=== PATIENT | male | born 1965 | race Caucasian/White ===

== ENCOUNTER 2022-11-08 | Outpatient (REF) | payer MEDICARE, MEDICAID, SELFPAY ==
[2022-11-13 10:08] LABS: Alphahydroxymidazolam,GCMS Ur NEGATIVE; Alphahydroxytriazolam, GCMS Ur NEGATIVE; Alprazolam, GCMS Urine NEGATIVE; Flurazepam Metabolite,GCMS Ur NEGATIVE; Lorazepam GCMS Urine NEGATIVE; Nordiazepam, GCMS Urine NEGATIVE; Oxazepam, GCMS Urine NEGATIVE; Temazepam, GCMS Urine NEGATIVE
== END 2022-11-08 00:01 | disposition home or self-care (01) ==
LOC: HO.LNP
PROVIDERS: Visit Provider Internal Medicine Geriatric Medicine
DX: G89.4 Chronic pain syndrome (principal); G89.29 Other chronic pain; M54.50 Low back pain, unspecified; Z79.891 Long term (current) use of opiate analgesic
CPT/HCPCS: 80346

== ENCOUNTER 2023-04-18 11:16 | Outpatient (REF) | payer MEDICARE, MEDICAID, SELFPAY ==
[2023-04-18 13:25] LABS: MANUAL DIFF FLAG NO
[2023-04-18 13:37] LABS: Basophils Absolute Auto 0.1 X10*3/uL (0.0-0.2); Basophils Percent Auto 0.7 % (0-2); Eosinophils Absolute Auto 0.2 X10*3/uL (0.0-0.4); Eosinophils Percent Auto 2.1 % (0-4); Hematocrit 39.4 % (42.0-52.0); Hemoglobin 12.5 g/dl (14.0-18.0); Imm Gran Abs Auto 0.11 X10*3/uL (0.00-0.03); Lymphocytes Absolute Auto 2.8 X10*3/uL (1.2-4.9); Lymphocytes Percent Auto 25.9 % (20-40); Mean Corpuscular HGB Conc 31.7 g/dl (31.0-36.0); Mean Corpuscular Hemoglobin 30.5 pg (27.0-33.0); Mean Corpuscular Volume 96.1 fL (80.0-98.0); Mean Platelet Volume 10.4 fL (9.4-12.4); Monocytes Absolute Auto 0.9 X10*3/uL (0.1-1.2); Monocytes Percent Auto 8.2 % (2-11); Neutrophils Absolute Auto 6.6 x10*3/uL (2.0-8.3); Neutrophils Percent Auto 62.1 % (45-73); Platelet Count 271 X10*3/uL (160-400); Red Cell Distribution Width 15.2 % (11.0-16.0); White Blood Count 10.6 X10*3/uL (4.8-10.8)
[2023-04-18 14:01] LABS: Anion Gap 11 (12-20); Blood Urea Nitrogen 16 mg/dL (9-16); Carbon Dioxide 25 mmol/L (22-29); Chloride 112 mmol/L (96-108); Estimated Glomerular Filt Rate > 60; Glucose Random 91 mg/dL (60-115); Potassium 4.3 mmol/L (3.3-5.1); Sodium 144 mmol/L (135-145)
== END 2023-04-18 11:17 | disposition home or self-care (01) ==
LOC: HO.HHCL 11:16
PROVIDERS: Visit Provider Internal Medicine Geriatric Medicine
DX: R82.90 Unspecified abnormal findings in urine (principal); N31.9 Neuromuscular dysfunction of bladder, unspecified
CPT/HCPCS: 36415; 80048; 85025

== ENCOUNTER 2023-08-01 11:48 | Outpatient (AMB) | payer MEDICARE, MEDICAID, SELFPAY ==
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
[2023-08-01 11:53] VITALS: BP 123/76; PULSE 80; BMI 19.9
== END 2023-08-01 12:57 | disposition home or self-care (01) ==
PROVIDERS: PCP Internal Medicine Geriatric Medicine; Referring Provider Internal Medicine Geriatric Medicine; Visit Provider Internal Medicine
DX: K62.5 Hemorrhage of anus and rectum (principal); Z87.828 Personal history of other (healed) physical injury and trauma
CPT/HCPCS: 99204

== ENCOUNTER 2023-08-01 11:48 | Outpatient (REF) | payer MEDICARE, MEDICAID, SELFPAY ==
[2023-08-01 12:51] LABS: MANUAL DIFF FLAG NO
[2023-08-01 13:03] LABS: Basophils Absolute Auto 0.1 X10*3/uL (0.0-0.2); Basophils Percent Auto 0.5 % (0-2); Eosinophils Absolute Auto 0.2 X10*3/uL (0.0-0.4); Eosinophils Percent Auto 2.2 % (0-4); Hematocrit 39.5 % (42.0-52.0); Hemoglobin 13.4 g/dl (14.0-18.0); Imm Gran Abs Auto 0.05 X10*3/uL (0.00-0.03); Imm Gran Pct Auto 0.5 % (0.0-0.4); Lymphocytes Absolute Auto 2.8 X10*3/uL (1.2-4.9); Lymphocytes Percent Auto 30.4 % (20-40); Mean Corpuscular HGB Conc 33.9 g/dl (31.0-36.0); Mean Corpuscular Hemoglobin 31.1 pg (27.0-33.0); Mean Corpuscular Volume 91.6 fL (80.0-98.0); Mean Platelet Volume 10.3 fL (9.4-12.4); Monocytes Absolute Auto 0.8 X10*3/uL (0.1-1.2); Neutrophils Absolute Auto 5.3 x10*3/uL (2.0-8.3); Neutrophils Percent Auto 57.4 % (45-73); Platelet Count 247 X10*3/uL (160-400); Red Blood Count 4.31 X10*6/uL (4.60-5.80); Red Cell Distribution Width 13.7 % (11.0-16.0); White Blood Count 9.3 X10*3/uL (4.8-10.8)
[2023-08-01 13:49] LABS: Anion Gap 9 (12-20); Blood Urea Nitrogen 13 mg/dL (9-16); Calcium 8.8 mg/dL (8.4-10.2); Carbon Dioxide 24 mmol/L (22-29); Chloride 111 mmol/L (96-108); Estimated Glomerular Filt Rate > 60; Glucose Random 91 mg/dL (60-115); Potassium 4.2 mmol/L (3.3-5.1); Sodium 140 mmol/L (135-145)
== END 2023-08-01 11:49 | disposition home or self-care (01) ==
LOC: HO.LAB 11:48
PROVIDERS: Absent Provider Internal Medicine Geriatric Medicine; PCP Internal Medicine Geriatric Medicine; Visit Provider Internal Medicine
DX: K62.5 Hemorrhage of anus and rectum (principal); Z87.828 Personal history of other (healed) physical injury and trauma; R82.90 Unspecified abnormal findings in urine; N31.9 Neuromuscular dysfunction of bladder, unspecified
CPT/HCPCS: 36415; 80048; 85025; 85027; 99202

== ENCOUNTER 2023-08-31 15:26 | Outpatient (REF) | payer MEDICARE, MEDICAID, SELFPAY ==
[2023-09-02 20:13] LABS: TS Negative Control Passed; TS Panel A 0; TS Panel B 0; TS Positive Control Passed; TSpotTB Negative (Negative)
== END 2023-08-31 15:27 | disposition home or self-care (01) ==
LOC: HO.HHCL 15:26
PROVIDERS: Visit Provider Internal Medicine Geriatric Medicine
DX: Z11.1 Encounter for screening for respiratory tuberculosis (principal)
CPT/HCPCS: 36415; 86481

== ENCOUNTER 2023-10-29 15:58 | Outpatient (REF) | payer MEDICARE, MEDICAID, SELFPAY ==
[2023-11-02 08:45] LABS: Alphahydroxymidazolam,GCMS Ur NEGATIVE; Alphahydroxytriazolam, GCMS Ur NEGATIVE; Alprazolam, GCMS Urine NEGATIVE; Aminoclonazepam, GCMS Urine 333; Flurazepam Metabolite,GCMS Ur NEGATIVE; Lorazepam GCMS Urine NEGATIVE; Nordiazepam, GCMS Urine NEGATIVE; Oxazepam, GCMS Urine NEGATIVE; Temazepam, GCMS Urine NEGATIVE
== END 2023-10-29 15:59 | disposition home or self-care (01) ==
LOC: HO.LNP 15:58
PROVIDERS: Visit Provider Internal Medicine Geriatric Medicine
DX: M54.50 Low back pain, unspecified (principal); G89.29 Other chronic pain
CPT/HCPCS: 80346

== ENCOUNTER 2024-01-24 08:57 | Day surgery (SDC) | payer MEDICARE, MEDICAID, SELFPAY ==
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
--- OUTSIDE RECORDS SUMMARY | 2024-01-24 08:59 | XMS_ITS | Continuity of Care Document ---
Author Organization [facility] Address [address] [place] [address]- Care Team Providers Care Carrot Buncher Name Role Phone Name Harry NIELSEN Primary Care Physician [phone] [id number] Date(s): 01/09/23 - 02/08/[facility] [address] [place] [address]- Allergies, Adverse Reactions, Alerts Substance Reaction Severity Status Depakote ? reaction Active Immunizations Given and Recorded Vaccine Date Status Refusal Reason diphtheria-tetanus toxoids (DT) 1 07/26/06 Given Hepatitis B Vaccine (old term) 2 07/26/06 Given 1Admin Note: VIS 11/05/00 2Admin Note: VIS 10/17/00 Medications amitriptyline 50 mg oral tablet TAKE 1 TABLET BY MOUTH AT BEDTIME Start Date: 07/18/22 Status: Ordered ARIPiprazole 10 mg oral tablet 10 mg, 1, tablet, By Mouth, Daily, Maintenance, 07/18/22 7:59:00 EDT Start Date: 07/18/22 Status: Ordered buPROPion 300 mg/24 hours (XL) oral tablet, extended release TAKE 1 TABLET BY MOUTH EVERY MORNING. DO NOT BREAK, CRUSH, DISSOLVE OR CHEW Start Date: 07/18/22 Status: Ordered clonazePAM 1 mg oral tablet 1 tablet = 1 mg, By Mouth, Daily, Maintenance, 07/18/22 7:58:00 EDT, Tablet, Partial fill upon patient request if the prescription is for a schedule II opioid drug. Start Date: 07/18/22 Status: Ordered Percocet 7.5/325 1 tablet, By Mouth, Every 6 hours, 0 Refills, Maintenance, 08/08/18 14:34:39 EDT Start Date: 08/08/18 Status: Ordered prazosin 2 mg oral capsule 3 capsules, By Mouth, Daily at bedtime, Maintenance, 07/18/22 8:00:00 EDT, Capsule Start Date: 07/18/22 Status: Ordered sertraline 100 mg oral tablet 1 tablet = 100 mg, By Mouth, Daily, Maintenance, 07/18/22 7:59:00 EDT, Tablet Start Date: 07/18/22 Status: Ordered tiZANidine 4 mg oral tablet 4 mg, 1, tablet, By Mouth, Daily, PRN, Maintenance, Spasm, 07/18/22 7:59:00 EDT, Partial fill upon patient request if the prescription is for a schedule II opioid drug. 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 Confirmed Active LBP (low back pain) Confirmed Active Neurogenic bladder Confirmed Active Post-traumatic stress disorder (PTSD) Confirmed Active Urinary incontinence Confirmed Active UTI - Urinary tract infection Confirmed Active Social History Social History Type Response Smoking Status Current every day flako thomas entered on: 05/01/16 Sex Patient Care team information Care Team Personnel Name: Patti Bob RN Position: [facility] AMB Nurse Member Role: Primary Care Nurse Name: Tamar Wyatt RN Position: [facility] SN RN Member Role: Primary Care Nurse Name: Hue Pierre NP Position: Reference Physician Member Role: Primary Care Nurse Address: Address: [address] [place] [address] [address] [place] [address]- Name: Omid Miller RN Position: [facility] RN Member Role: Primary Care Nurse Name: Harry Recio MD Position: [facility] Outreach Member Role: PCP Address: Address: [address] [place] [address]- Name: Glenn Tavares RN Position: [facility] ED RN W/OE and Tasks Member Role: Primary Care Nurse Care Team Related Persons Name: BARBARA ALONZO Address: [address] [address]
--- OUTSIDE RECORDS SUMMARY | 2024-01-24 08:59 | XMS_ITS | Continuity of Care Document ---
Author Organization [facility] ter Address [address] [place] [address]- Care Team Providers Care Certified Addiction Counselor Name Role Phone Name Harry NIELSEN Primary Care Physician [place] [facility] [place]16[place] - 06/20/[address] [address] Attending Physician: Yamila Gan MD Admitting Physician: Yamila Gan MD Referring Physician: Yamila Gan MD Allergies, Adverse Reactions, Alerts Substance Reaction Severity Status Depakote ? reaction Active Immunizations Given and Recorded Vaccine Date Status Refusal Reason diphtheria-tetanus toxoids (DT) 1 07/26/06 Given Hepatitis B Vaccine (old term) 2 07/26/06 Given Not Given Vaccine Date Status Refusal Reason pneumococcal 23-valent vaccine 01/17/13 Not Given Patient Refuses 1Admin Note: VIS 11/05/00 2Admin Note: VIS 10/17/00 Medications duloxetine 30 mg oral enteric coated capsule 1 capsule = 30 mg, By Mouth, 2 times a day, 0 Refills, Maintenance, 09/09/18 15:30:52 EDT Start Date: 09/09/18 Status: Ordered LORazepam 0.5 mg oral tablet 0.5 tablet = 0.25 mg, By Mouth, 3 times a day, 0 Refills, Maintenance, 08/08/18 14:37:17 EDT, Tablet Start Date: 08/08/18 Status: Ordered Percocet 7.5/325 1 tablet, By Mouth, Every 6 hours, 0 Refills, Maintenance, 08/08/18 14:34:39 EDT Start Date: 08/08/18 Status: Ordered Problem List Condition Effective Dates Status Health Status Inform ant Cauda equina(Confirmed) Active Depressive Disorder, Not Els ewhere Classified(Confirmed) Active Fecal incontinence not due t o organic disease(Confirmed) Active LBP (low back pain)(Confirmed) Active Neurogenic bladder(Confirmed) Active Post-traumatic stress disord er (PTSD)(Confirmed) Active Urinary incontinence(Confirmed) Active UTI - Urinary tract infection(Confirmed) Active Social History Social History Type Response Smoking Status Current every day flako thomas entered on: 05/01/16 Sex
--- OUTSIDE RECORDS SUMMARY | 2024-01-24 08:59 | XMS_ITS | Continuity of Care Document ---
Author Organization [facility] Address [address] [place] [address]- Care Team Providers Care Substance Addiction Coordinator Name Role Phone Name Harry NIELSEN Primary Care Physician [place] [facility] [place] 03/03/23 [facility] [address] [place] [address]- Attending Physician: Nirmal Moralez Admitting Physician: Nirmal Moralez Referring Physician: Nirmal Moralez Allergies, Adverse Reactions, Alerts Substance Reaction Severity [...] Type Response Smoking Status Current every day william entered on: 05/01/16 Sex Patient Care team information Care Team Personnel Name: Patti Bob RN Position: [facility] AMB Nurse Member Role: Primary Care Nurse Name: Tamar Wyatt RN Position: [facility] SN RN Member Role: Primary Care Nurse Name: Hue Pierre NP Position: Reference Physician Member Role: Primary Care Nurse Address: Address: [address] [place] [address] [address] [place] [address]- Name: Omid Miller RN Position: [facility] RN Member Role: Primary Care Nurse Name: Harry Recio MD Position: [facility] Outreach Member Role: PCP Address: Address: [address] [place] [address]- Name: Glenn Tavares RN Position: [facility] ED RN W/OE and Tasks Member Role: Primary Care Nurse Care Team Related Persons Name: BARBARA ALONZO Address: [address] [address]
--- OUTSIDE RECORDS SUMMARY | 2024-01-24 08:59 | XMS_ITS | Continuity of Care Document ---
Author Organization [facility] Address [address] [place] [address]- Care Team Providers Care Business Solutions Consultant Name Role Phone Name Harry NIELSEN Primary Care Physician [phone] [id number] Date(s): 08/01/22 - 10/28/[facility] [address] [place] [address]- Attending Physician: Aquiles Cobian MD Admitting Physician: Aquiles Cobian MD Allergies, Adverse Reactions, Alerts Substance Reaction [...] Type Response Smoking Status Current every day sm william entered on: 05/01/16 Sex Patient Care team information Care Team Personnel Name: Patti Bob RN Position: [facility] AMB Nurse Member Role: Primary Care Nurse Name: Tamar Wyatt RN Position: [facility] SN RN Member Role: Primary Care Nurse Name: Hue Pierre NP Position: Reference Physician Member Role: Primary Care Nurse Address: Address: [address] [place] [address] [address] [place] [address]- Name: Omid Miller RN Position: [facility] RN Member Role: Primary Care Nurse Name: Harry Recio MD Position: [facility] Outreach Member Role: PCP Address: Address: [address] [place] [address]- [place] Name: Gelnn Tavares RN Position: [facility] ED RN W/OE and Tasks Member Role: Primary Care Nurse Care Team Related Persons Name: ALONZO BARBARA Address: home [address] [place] [address]
--- OUTSIDE RECORDS SUMMARY | 2024-01-24 08:59 | XMS_ITS | Continuity of Care Document ---
Author Organization [facility] Address [address] [place] [address]- Care Team Providers Care Railway Signal Technician Name Role Phone Name Harry NIELSEN Primary Care Physician [phone] [id number] Date[facility]28[facility] - [facility] [address] [place] [address] Attending Physician: Nav Johnston MD Admitting Physician: Nav Johnston MD Allergies, Adverse Reactions, Alerts Substance Reaction [...] Team Personnel Name: Patti Bob RN Position: [facility] AMB Nurse Member Role: Primary Care Nurse Name: Tamar Wyatt RN Position: [facility] SN RN Member Role: Primary Care Nurse Name: Hue Pierre NP Position: Reference Physician Member Role: Primary Care Nurse Address: Address: [address] [place] [address] [address] [place], [place] [address] [place] [address] Name: Omid Miller RN Position: [facility] RN Member Role: Primary Care Nurse Name: Harry Recio MD Position: [facility] Outreach Member Role: PCP Address: Address: [address] [place] [address]- Name: Glenn Tavares RN Position: [facility] ED RN W/OE and Tasks Member Role: Primary Care Nurse Care Team Related Persons Name: BARBARA ALONZO Address: [address] [address]
--- OUTSIDE RECORDS SUMMARY | 2024-01-24 09:00 | XMS_ITS | Continuity of Care Document ---
Author Organization [facility] Address [address] [place] [address]- Care Team Providers Care Electoral Officer Name Role Phone Name Harry NIELSEN Primary Care Physician [id number] Date[facility] 07/18/22 - 08/31/[facility] [address] [place] [address]- Attending Physician: Lisa Carias DO Admitting Physician: Lisa Carias DO Allergies, Adverse Reactions, Alerts Substance Reaction Severity [...] Team Personnel Name: Patti Bob RN Position: [facility] PCO RN Member Role: Primary Care Nurse Name: Tamar Wyatt RN Position: [facility] SN RN Member Role: Primary Care Nurse Name: Hue Pierre NP Position: Reference Physician Member Role: Primary Care Nurse Address: Address: [address] [place] [address] [address] [place] [address]- Name: Omid Miller RN Position: [facility] RN Member Role: Primary Care Nurse Name: Harry Recio MD Position: [facility] Outreach Member Role: PCP Address: Address: [address] [place] [address]- [place] Name: Glenn Tavares RN Position: [facility] ED RN W/OE and Tasks Member Role: Primary Care Nurse Care Team Related Persons Name: ALONZOBARBARA MARTINEZ Address: home [address] [place] [address]
--- OUTSIDE RECORDS SUMMARY | 2024-01-24 09:00 | XMS_ITS | Continuity of Care Document ---
Author Organization [facility] Address [address] [place] [address]- Care Team Providers Care Doll Dresser Name Role Phone Name Harry NIELSEN Primary Care Physician [phone] [id number] Date(s): 06/30/22 - 08/17/[facility] [address] [place] [address]- Attending Physician: Lisa Carias DO Admitting Physician: [...] Team Personnel Name: Patti Bob RN Position: [facility] PCO RN Member Role: Primary Care Nurse Name: Tamar Wyatt RN Position: [facility] SN RN Member Role: Primary Care Nurse Name: Hue Pierre NP Position: Reference Physician Member Role: Primary Care Nurse Address: Address: [address] [place] [address] [address] [place] [address]- Name: Omid Miller RN Position: [facility] RN Member Role: Primary Care Nurse Name: Harry Recio MD Position: [facility] Outreach Member Role: PCP Address: Address: [address] [place] [address]- [place] Name: Glenn Tavares RN Position: [facility] ED RN W/OE and Tasks Member Role: Primary Care Nurse Care Team Related Persons Name: ALONZOBARBARA MARTINEZ Address: home [address] [place] [address]
--- OUTSIDE RECORDS SUMMARY | 2024-01-24 09:00 | XMS_ITS | Continuity of Care Document ---
Author Organization [facility] ter Address [address] [place] [phone]- Care Team Providers Care Coke Burner Name Role Phone Name Harry NIELSEN Primary Care Physician [place] [facility] [place] 05/10/23 - 05/10/[address] [address]- Discharge Disposition: A-D/C Home Attending Physician: Radames Pratt MD Admitting Physician: Radames Pratt MD Referring Physician: Not on Staff, Referring MD Allergies, Adverse Reactions, Alerts Substance Reaction [...] UTI - Urinary tract infection Confirmed Active Results Radiology Reports * Exam Date Time Procedure Performing Provider Status 05/10/23 6:[address] Abd/Pelvis W/ IV Contrast Only Sanch Alicia leggett; Auth (Verified) Notes: (CT Abd/Pelvis W/ IV Contrast Only) Reason For Exam: right testicle pain;Other: RESULT: CT Abd/Pelvis W/ IV Contrast Only CT Abd/Pelvis W/ IV Contrast Only Hx of Present Illness: pt states he has had a urinary tract infection, has been on antibiotics x4 days, pain worse today, denies hematuria, denies swelling to genitals, denies penile discharge, uses straight cath to urinate; Reason: Other:; right testicle pain; Clinical Question(s): Other:; testicular abscess, magda's, scrotal pelvic cellulitis; Order Comment: TECHNIQUE: Spiral CT through the abdomen and pelvis with IV contrast formatted in 3 planes. 100 cc of Omnipaque 300 was administered intravenously. This study was performed without oral contrast. Weight-based protocol using automatic tube modulation was used to optimize exposure parameters. CTDIvol Body: 13.80 mGy, DLP Body: 801 mGy*cm. COMPARISON: 03/21/2015 CT. Scrotal ultrasound 05/10/2013. FINDINGS: Etl Developer View Findings, Lines and Tubes: None. Visualized Chest: Lung bases are clear. No pleural effusion. The heart is normal in size. No pericardial effusion. Diaphragm: Normal. Liver: Diffuse low-attenuation throughout the liver parenchyma consistent with hepatic steatosis. No evidence of mass. Gallbladder: Decompressed, within normal limits. No CT evidence of gallbladder pathology. Bile ducts: No biliary ductal dilation. Spleen: Normal. Pancreas: Normal. Adrenal glands: Normal. Kidneys and ureters: No hydronephrosis, stones, or suspicious masses. Simple appearing renal cysts and hypodensities that are too small to characterize are noted, requiring no dedicated follow up. Bladder: Chronic unchanged circumferential bladder wall thickening, diffuse bladder wall trabeculation with bladder diverticula. No bladder stones or focal mass. No surrounding fat stranding. Reproductive organs: Unremarkable. Stomach, small bowel, and large bowel: Prior bowel surgery with small bowel suture material in the LEFT midabdomen. Numerous small bowel loops are adherent to the anterior abdominal wall suggesting adhesions, unchanged compared with the prior CT. No mechanical bowel obstruction, bowel wall thickening or surrounding inflammatory changes. Moderate to large amount of stool present. Appendix: Normal. Peritoneum and retroperitoneum: No ascites or pneumoperitoneum. No omental or mesenteric lesions. Lymph nodes: No enlarged lymph nodes. Blood vessels: Mild vascular calcifications but no aneurysm. No evidence of venous thrombosis. Abdominal and pelvic wall: Infraumbilical linear anterior abdominal wall scar. Bones: No acute abnormality. Mild to moderate multilevel spinal degenerative changes. Chronic mild superior endplate depression of L4. Unchanged ossific densities in the central canal from L3 to L5-S1. IMPRESSION: 1. No hydronephrosis. 2. Circumferential bladder wall thickening with bladder wall trabeculation, similar to 03/31/2015. No surrounding fat stranding. Findings likely reflect chronic bladder stasis. WSN: [id number] Ordering Physician: Gil Jones Dictated By: Diana Hernandes MD Dictated Date/Time: 05/10/23 7:23 pm Reviewed By: Diana Hernadnes MD Signed By: Diana Hernandes MD Signed Date/Time: 05/10/23 7:23 pm Transcribed By: MAYE Transcribed Date/Time: 05/10/23 7:15 pm * Exam Date Time Procedure Performing Provider Status 05/10/23 4:45 PM US Pelvic Doppler Comp Johanna Gallo ; Auth (Verified) Notes: (US Pelvic Doppler Comp) Reason For Exam: Scrotal Pain;Other: RESULT: US Pelvic Doppler Comp US Scrotum and Contents, US Pelvic Doppler Comp Hx of Present Illness: pt states he has had a urinary tract infection, has been on antibiotics x4 days, pain worse today, denies hematuria, denies swelling to genitals, denies penile discharge, uses straight cath to urinate; Reason: Scrotal Pain; Clinical Question(s): Torsion COMPARISON: 04/29/2019 TECHNIQUE: High-resolution sonography with grayscale, color and spectral Doppler analysis. FINDINGS: RIGHT: Right testicle size: 3.6 x 2.6 x 2.7 cm (13.3 cc). Normal right testicle size and contour without focal lesions. Mild nonspecific parenchymal heterogeneity. Normal arterial and venous waveforms. Tubular ectasia involves an otherwise unremarkable-appearing epididymis, unchanged. No significant varicocele. Small right hydrocele measuring 0.8 x 1.0 x 2.8 cm, volume 1.3 cc. LEFT: Left testicle size: 3.8 x 2.8 x 2.4 cm (13.4 cc). Normal left testicle size and contour without focal lesions. Mild nonspecific parenchymal heterogeneity. Normal arterial and venous waveforms. Tubular ectasia involves an otherwise unremarkable-appearing epididymis, unchanged. No significant varicocele. Small-moderate left hydrocele measuring 3.7 x 2.3 x 3.0 cm, volume 13.4 cc. IMPRESSION: 1. Mild nonspecific testicular heterogeneity without testicular torsion or focal lesion. 2. Small-moderate left and small right hydroceles. WSN: [id number] Ordering Physician: Gil Jones Dictated By: Chip Thomas MD Dictated Date/Time: 05/10/23 5:13 pm Reviewed By: Chip Thomas MD Signed By: Chip Thomas MD Signed Date/Time: 05/10/23 5:13 pm Transcribed By: MAYE Transcribed Date/Time: 05/10/23 5:08 pm * Exam Date Time Procedure Performing Provider Status 05/10/23 4:45 PM US Scrotum and Contents Susy Gallo; Auth (Verified) Notes: (US Scrotum and Contents) Reason For Exam: Scrotal Pain;Other: RESULT: US Scrotum and Contents US Scrotum and Contents, US Pelvic Doppler Comp Hx of Present Illness: pt states he has had a urinary tract infection, has been on antibiotics x4 days, pain worse today, denies hematuria, denies swelling to genitals, denies penile discharge, uses straight cath to urinate; Reason: Scrotal Pain; Clinical Question(s): Torsion COMPARISON: 04/29/2019 TECHNIQUE: High-resolution sonography with grayscale, color and spectral Doppler analysis. FINDINGS: RIGHT: Right testicle size: 3.6 x 2.6 x 2.7 cm (13.3 cc). Normal right testicle size and contour without focal lesions. Mild nonspecific parenchymal heterogeneity. Normal arterial and venous waveforms. Tubular ectasia involves an otherwise unremarkable-appearing epididymis, unchanged. No significant varicocele. Small right hydrocele measuring 0.8 x 1.0 x 2.8 cm, volume 1.3 cc. LEFT: Left testicle size: 3.8 x 2.8 x 2.4 cm (13.4 cc). Normal left testicle size and contour without focal lesions. Mild nonspecific parenchymal heterogeneity. Normal arterial and venous waveforms. Tubular ectasia involves an otherwise unremarkable-appearing epididymis, unchanged. No significant varicocele. Small-moderate left hydrocele measuring 3.7 x 2.3 x 3.0 cm, volume 13.4 cc. IMPRESSION: 1. Mild nonspecific testicular heterogeneity without testicular torsion or focal lesion. 2. Small-moderate left and small right hydroceles. WSN: [id number] Ordering Physician: Gil Jones Dictated By: Chip Thomas MD Dictated Date/Time: 05/10/23 5:13 pm Reviewed By: Chip Thomas MD Signed By: Chip Thomas MD Signed Date/Time: 05/10/23 5:13 pm Transcribed By: MAYE Transcribed Date/Time: 05/10/23 5:08 pm Vital Signs Most recent to oldest [Reference Range]: 1 2 3 Height 178 cm (05/10/23 1:08 PM) 178 cm (05/10/23 12:49 PM) Weight 84 kg (05/10/23 1:08 PM) 84 kg (05/10/23 12:49 PM) Oxygen Saturation [94-100 %] 99 % (05/10/23 8:22 PM) 100 % (05/10/23 4:01 PM) 100 % (05/10/23 2:43 PM) Pulse Rate [55-90 bpm] 77 bpm (05/10/23 8:22 PM) 84 bpm (05/10/23 4:01 PM) 91 bpm *H* (05/10/23 2:43 PM) Body Mass Index [18.5-24.99 kg/m2] 26.51 kg/m2 *H* (05/10/23 12:49 PM) Blood Pressure [90-138/55-84 mm Hg] 111/90mm Hg (05/10/23 8:22 PM) 124/86mm Hg (05/10/23 4:01 PM) 135/93mm Hg (05/10/23 2:43 PM) Respiratory Rate [16-30 br/min] 18 br/min (05/10/23 8:22 PM) 18 br/min (05/10/23 4:01 PM) 18 br/min (05/10/23 2:43 PM) Temperature [96.8-100.4 DegF] 98.4 DegF (05/10/23 8:22 PM) 97.7 DegF (05/10/23 4:01 PM) 97.8 DegF (05/10/23 2:43 PM) Mode of Delivery (Oxygen) Room air (05/10/23 8:22 PM) Room air (05/10/23 4:01 PM) Room air (05/10/23 2:43 PM) Blood pressure sites Arm, left (05/10/23 8:22 PM) Arm, left (05/10/23 4:01 PM) Arm, left (05/10/23 2:43 PM) Temperature Route Oral (05/10/23 8:22 PM) Oral (05/10/23 4:01 PM) Oral (05/10/23 2:43 PM) Dry Weight 84 kg (05/10/23 1:08 PM) 84 kg (05/10/23 12:49 PM) Weight Obtained Via Patient/family state d (05/10/23 12:49 PM) Dry Weight Obtained Via Patient/family s tated (05/10/23 12:49 PM) Social History Social History Type Response Smoking Status Current every day flako thomas entered on: 1/23/17 Sex Patient Care team information Care Team Personnel Name: Patti Bob RN Position: [facility] AMB Nurse Member Role: Primary Care Nurse Name: Tamar Wyatt RN Position: [facility] SN RN Member Role: Primary Care Nurse Name: Hue Pierre NP Position: Reference Physician Member Role: Primary Care Nurse Address: Address: [address] [place] [address] [address] [place] [address]- Name: Omid Miller RN Position: [facility] RN Member Role: Primary Care Nurse Name: Harry Recio MD Position: [facility] Outreach Member Role: PCP Address: Address: [address] [place] [address]- Name: Anusha LOPEZ, Glenn Becerra Position: [facility] ED RN W/OE and Tasks Member Role: Primary Care Nurse Care Team Related Persons Name: BARBARA ALONZO Address: [address] [address]
[2024-01-24 10:41] VITALS: BMI 26.1
[2024-01-24 10:42] VITALS: BP 136/83; PULSE 68; RESP 16; TEMP 36.3; O2SAT 97
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
[2024-01-24] MEDS: Lactated Ringers 1,000 ML 100 ML IVCONT (10:55)
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
--- NOTE | 2024-01-24 12:50 | P.OPN-COLO_ITS ---
Colonoscopy Operative Note Operative Note Date of Service: 01/24/24 Narrative: Procedure: Colonoscopy Indication: BRBPR Endoscopist: Ani Reyes MD Anesthesia Provider: Dr Estella Dodson Anesthesia type: MAC Instrument: Olympus [id number]-H190L Consent: Indication, risks vs benefits, and alternatives were discussed with the patient who gave written informed consent to proceed. EKG, pulse, pulse oximetry and blood pressure were monitored throughout the procedure. Please see anesthesia flowsheet. Procedure: The patient was brought to the procedure room and placed in the left lateral decubitus position. IV medications were administered by the anesthesia provider in attendance. A digital rectal exam was performed which was abnormal due to finding of hemorrhoids. A distal attachment cap was affixed to the tip of the colonoscope which was then inserted through the anus and advanced through the colon to the cecum at 80 cm,and terminal ileum. Appendiceal orifice and ileocecal valve were identified. Mucosa was carefully examined under high definition white light as the instrument was slowly withdrawn in a retrograde panoramic fashion. Retroflexion was performed in rectum. The procedure was not difficult. There were no immediate obvious complications. The quality of the prep was BBPS: 2+2+2 = adequate Withdrawal time 11 minutes. Limitations: No limitations. Findings: Mucosa: Normal to cecum and terminal ileum. Protruding lesions: * Large internal hemorrhoids without stigmata of recent bleeding. Impression: 1. Normal colon and terminal mucosa 2.External and internal hemorrhoids Recommendations: - Repeat colonoscopy for asymptomatic colorectal ca screening in 5 years due to prep.
[2024-01-24 12:57] VITALS: BP 132/83; PULSE 66; RESP 16; TEMP 36.9; O2SAT 98
[2024-01-24 13:12] VITALS: BP 121/65; PULSE 61; RESP 16; O2SAT 99
--- NOTE | 2024-01-24 13:14 | HO.POSTANES ---
Post Anesthesia Evaluation Post Anesthesia Evaluation Date of Service: 01/24/24 Vital Signs: Vital Signs Temp Pulse Resp BP Pulse Ox O2 Del Method 01/24/24 12:57 98.5 F 66 16 132/83 98 Room Air 01/24/24 10:42 97.4 F 68 16 136/83 97 Room Air Anesthesia: Monitored Mental Status: Awake Pain Control: Satisfactory Nausea/Vomiting: None Hydration: Adequate Anesthesia-Related Issues: No Anes. Related Issues
[2024-01-24 13:27] VITALS: BP 121/80; PULSE 61; RESP 16; TEMP 36.4; O2SAT 98
== END 2024-01-24 13:57 | disposition home or self-care (01) ==
PROVIDERS: PCP Internal Medicine Geriatric Medicine; Visit Provider Internal Medicine
PROC: 0DJD8ZZ Inspection of Lower Intestinal Tract, Via Natural or Artificial Opening Endoscopic (ICD-10-PCS; CPT 45378; principal; 2024-01-24 12:20)
DX: K64.8 Other hemorrhoids (principal); K64.4 Residual hemorrhoidal skin tags
CPT/HCPCS: G0121; J2003; J2704

== ENCOUNTER → 2024-01-24 08:57 | Outpatient (BNV) | payer MEDICARE, MEDICAID, SELFPAY | PROVIDERS: PCP Internal Medicine Geriatric Medicine; Visit Provider Internal Medicine | DX: K62.5 Hemorrhage of anus and rectum (principal); K64.8 Other hemorrhoids | CPT/HCPCS: 45378 ==

== ENCOUNTER 2024-04-30 13:14 | Outpatient (REF) | payer MEDICARE, MEDICAID, SELFPAY ==
--- OUTSIDE RECORDS SUMMARY | 2024-04-30 15:19 | XMS_ITS | Encounter Summary ---
Author Organization [facility] Address [address] [facility] 7 [place] [address] Care Team Providers Care Jig Box Operator Name Role Phone Name, Harry NIELSEN Primary Care Provider [phone] Reason for Visit * Reason Onset Date Comments Housing Form 04/22/2024 I called shannan sanchez a reasonable accommodation request, from [facility]. The patient states that he is requesting for his [employer]ACER [employer]ER to be his live-in aide, and that he will need care on a continuous basis. He is requesting to be called, when the form is ready to be picked up. Encounter Details Date Type Department Care Team (Late st Contact Info) Description 04/22/2024 Telephone [facility] [address] [place] [address] Name, MD Harry [address] [place], [place] [phone] Housing Form (I called regarding a reasonable accommodation request, from [facility]. The patient states that he is requesting for his [employer]ER to be his live-in aide, and that he will need care on a continuous basis. He is requesting to be called, when the form is ready to be picked up.) Social History Tobacco Use Types Packs/Day Years Used Date Smoking Tobacco: Every Day Cigarettes Passive Smoke Exposure: Current Alcohol Use Standard Drinks/Week Comments Never 0 (1 standard drink = 0.6 oz pur e alcohol) Alcohol Answer Date Recorded Frequency of Alcohol Consumption Not on file 10/09/2023 Average Number of Drinks Not on file 024 Frequency of Binge Drinking Not on file 05/2023 Score 0 10/09/2023 Depression Answer Date Recorded Patient Health Questionnaire-9 Score 23 01/31/2024 Patient Health Questionnaire-9 Score 23 01/31/2024 Last PHQ-9: Questionnaire Data Not on file 1 Housing Stability Answer Date Recorded What is your housing situation today? I have warren rudd 08/31/[address] you li ve. Do you have problems with any of the following? None of the above 08/31/2023 Food Insecurity Answer Date Recorded Within the past 12 months, y ou worried that your food would run out before you got money to buy more: Never True 08/31/2023 Within the past 12 months,th e food you bought just didn't last and you didn't have enough money to get more: Never True Transportation Answer Date Recorded In the past 12 months, has l ack of transportation kept you from medical appts, meetings, work or from getting things needed for daily living? No 08/31/2023 Utilities Answer Date Recorded In the past 12 months, has t he electric, gas, oil or water company threatened to shut off services in your home? No 08/31/2023 Depression Answer Date Recorded Patient Health Questionnaire-2 Score 6 01/31/2024 Sex and Gender Information Value Date Recorded Sex Assigned at Male 02/06/2022 10:29 AM EDT Legal Sex Male 10:29 AM EDT Gender Identity Male 02/06/2022 10:29 AM EDT Sexual Orientation Straight 02/06/2022 10 :29 AM EDT documented as of this encounter Miscellaneous Notes * Telephone Encounter - Tatiana Velez MA - 04/22/2024 3:06 PM EST I called regarding a reasonable accommodation request, from [facility]. The patient states that he is requesting for his [employer]ER to be his live-in aide, and that he will need care on a continuous basis. He is requesting to be called, when the form is ready to be picked up. documented in this encounter Plan of Treatment Upcoming Encounters Date Type Department Care Team (Late st Contact Info) Description 05/07/2024 10:30 AM EST Clinical Support [address] [address] Cinda Moura RN 06/11/2024 10:00 AM EST Office Visit [address] [address] Name, MD Harry [address] [place] [phone] documented as of this encounter Visit Diagnoses Not on filedocumented in this encounter Additional Health Concerns Assessment Noted Time PHQ-9 Depression Total Score: 23 024 9:52 AM EDT documented as of this encounter Care Teams Jig Box Operator Relationship Specialty Start Date End Date Name, MD Harry [address] [place] [id number] PCP - General Family Medicine 08/03/15 documented as of this encounter
--- OUTSIDE RECORDS SUMMARY | 2024-04-30 15:19 | XMS_ITS | Encounter Summary ---
Author Organization [employer] Address [address] [facility] 7 [place] [address] Care Team Providers Care Control Director Name Role Phone Name, Harry NIELSEN Primary Care Provider [phone] Reason for Visit * Reason Onset Date Comments Nurse Triage 04/29/2024 Encounter Details Date Type Department Care Team ([facility] st Contact Info) Description 04/29/2024 Telephone [facility] [address] [place], [place] [phone] Name, MD Harry [address] [place] [address] Nurse Triage Social History Tobacco Use Types Packs/Day Years [...] encounter Miscellaneous Notes * Telephone Encounter - Dorinda Soriano RN - 04/29/2024 4:04 PM EST Call returned to Ruddy Garcia to triage below. Reports having pain in right testicular pain x today. Denies any redness, rash or swelling. Pt reports uses self caths and able to drain urine. Yesterday having odor to urine. No N/V or fever. Denies any blood in urine. Pt advised of dispsoition, tj [facility] tonight. agrees to seek [facility] for exam as no sick on site availability on teams at time of call.Reviewed [facility] operating hours and that wait times vary. Reviewed home care advise, ER precautions( severe pain, swelling or difficulty draining urine with Self Cath) and reasons to call back. Multiple (2) protocols were used on this call. Disposition for Call: See in Office or Video Visit Today Protocol Used: Scrotum Pain (Adult) Protocol-Based Disposition: See in Office or Video Visit Today Positive Triage Question: * Pain comes and goes (intermittent) and present > 24 hours * All higher-acuity triage questions were negative Care Advice Discussed: * Reasons To Call Back - Severe pain - You become worse Protocol Used: Urinary Symptoms (Adult) Protocol-Based Disposition: See in Office or Video Visit Today Video visit offer not recorded Positive Triage Question: * Bad or foul-smelling urine * All higher-acuity triage questions were negative Care Advice Discussed: * Reasons To Call Back - Fever occurs - Pain or burning with urination - Unable to urinate and bladder feels full - You become worse * Telephone Encounter - Ramirez Lockhartnandez - 04/29/2024 3:55 PM EST Symptom: Testicle Symptoms Outcome: Talk to a nurse or provider within 15 minutes Reason: Pain in the testicle The caller accepted this outcome. Contact pt at [phone] documented in this encounter Plan of Treatment Upcoming Encounters Date Type Department Care Team (Late st Contact Info) Description 05/07/2024 10:30 AM EST Clinical Support [address] [address] Cinda Moura, RN 06/11/2024 10:00 AM EST Office Visit [address] [address] Name, MD Harry [address] [place] [address] documented as of this encounter Visit Diagnoses Not on filedocumented in this encounter Additional Health Concerns Assessment Noted Time PHQ-9 Depression Total Score: 23 024 9:52 AM EDT documented as of this encounter Care Teams Control Director Relationship Specialty Start Date End Date Name, MD Harry [address] [place] [id number] PCP - General Family Medicine 08/03/15 documented as of this encounter
--- OUTSIDE RECORDS SUMMARY | 2024-04-30 15:19 | XMS_ITS | Encounter Summary ---
Author Organization [employer] Address [address] [facility] [address] 7[address] [place] [address] Care Team Providers Care Cow Trimmer Name Role Phone Name, Harry NIELSEN Primary Care Provider [phone] Encounter Details Date Type Department Care Team ([facility] st Contact Info) Description 04/03/2024 Telephone [facility] [address] [place], [place] [phone] Kristine Duggan RN Social History Tobacco Use Types Packs/Day Years [...] encounter Miscellaneous Notes * Telephone Encounter - Kristine Duggan RN - 04/03/2024 3:30 PM EST Tc to pt via s manager ent Phillip Jones to schedule pt their [facility] appt. No answer, lvm to return call and ask to speak to gypsum team nurses. documented in this encounter Plan of Treatment Upcoming Encounters Date Type Department Care Team (Late st Contact Info) Description 05/07/2024 10:30 AM EST Clinical Support [address] [address] Cinda Moura RN 06/11/2024 10:00 AM EST Office Visit [facility] MEDICINE [address] [place] [phone] Harry Recio MD [address] [place] [address] documented as of this encounter Visit Diagnoses Not on filedocumented in this encounter Additional Health Concerns Assessment Noted Time PHQ-9 Depression Total Score: 23 024 9:52 AM EDT documented as of this encounter Care Teams Cow Trimmer Relationship Specialty Start Date End Date NameHarry MD [address] [place] [phone] PCP - General Family Medicine 08/03/15 documented as of this encounter
--- OUTSIDE RECORDS SUMMARY | 2024-04-30 15:19 | XMS_ITS | Encounter Summary ---
Author Organization [employer] Address [address] [facility] 7 [place] [address] Care Team Providers Care Supervisor Backfilling Name Role Phone Name, Harry NIELSEN Primary Care Provider [phone] Reason for Visit * Reason Onset Date Comments Med Refill 04/29/2024 Encounter Details Date Type Department Care Team ([facility] st Contact Info) Description 04/29/2024 Refill [facility] MEDICINE [address] [place], [place] [phone] Name, MD Harry [address] [place] [address] Lumbago with sciatica, left side Social History Tobacco Use Types Packs/Day Years [...] the past 12 months, has t he [employer], gas, oil or water [employer] threatened to shut off services in your [...] encounter Miscellaneous Notes * Telephone Encounter - Cinda Moura RN - 04/30/2024 7:58 AM EST Pt has one refill of Clonazepam available at pharmacy. * Telephone Encounter - Ramirez Marks - 04/29/2024 3:53 PM EST TC from pt requesting medication refill. Medications needing refill : oxyCODONE-acetaminophen (Percocet) 7.5-325 MG tablet clonazePAM (KlonoPIN) 1 MG tablet To be sent to: [id number] - [place] - [address] [facility] documented in this encounter Plan of Treatment Upcoming Encounters Date Type Department Care Team ([facility] st Contact Info) Description 05/07/2024 10:30 AM EST Clinical Support [address] [phone] Cinda Moura RN 06/11/2024 10:00 AM EST Office Visit [facility] [address] [place] [address] Name, MD Harry [address] [place] [address] documented as of this encounter Visit Diagnoses Diagnosis Lumbago with sciatica, left side documented in this encounter Additional Health Concerns Assessment Noted Time PHQ-9 Depression Total Score: 23 024 9:52 AM EDT documented as of this encounter Care Teams Supervisor Backfilling Relationship Specialty Start Date End Date Name, [place] [address] PCP - General Family Medicine 08/03/15 documented as of this encounter
--- OUTSIDE RECORDS SUMMARY | 2024-04-30 15:19 | XMS_ITS | Encounter Summary ---
Author Organization [employer] Address [address] [facility] 7 [place] [address] Care Team Providers Care Cloth Laminating Supervisor Name Role Phone Name, Harry NIELSEN Primary Care Provider [phone] Reason for Visit * Reason Comments UTI symptoms Encounter Details Date Type Department Care Team ([facility] st Contact Info) Description 04/30/2024 9:20 AM EST Office Visit [facility] [address] [place], [place] [phone] Kellen Galeana DO [address] [place] [address] Complicated urinary tract infection (Primary Dx) Social History Tobacco Use Types Packs/Day Years [...] the past 12 months, has t he [email or web address], gas, oil or water company threatened to [...] AM EDT documented as of this encounter Last Filed Vital Signs Vital Sign Reading Time Taken Comments Blood Pressure 146/90 04/30/2024 9:36 AM EST Pulse 92 04/30/2024 9:36 AM EST Temperature 36 ??C (96.8 ??F) 04/30/2024 9:36 AM EST Respiratory Rate 18 04/30/2024 9:36 AM EST Oxygen Saturation 96% 04/30/2024 9:36 AM EST Inhaled Oxygen Concentration - - Weight 85 kg (187 lb 6.4 oz) 04/30/2024 9:36 AM EST Height 177.8 cm (5' 10 ) 04/30/2024 9:36 AM EST Body Mass Index 26.89 04/30/2024 9:36 AM EST documented in this encounter Progress Notes * Kellen Galeana, DO - 04/30/2024 9:20 AM EST SUBJECTIVE: Ruddy Garcia is a 59 y.o. year old male who presents for sick visit . He called yesterday c/o R testicular pain for one day and malodorous urine and was advised to come to [place]. He c/o worsening b/l testicular pain today which is usual symptom for UTI. He has had malodorous urine for the last 2 days. He has not needed to self cath more frequently. He denies any hematuria. Hedenies any penile discharge or itching. He has not had any N/V. No fevers. He has not had UTI in more than a year. He uses percocet but has not helped much with his pain. History provided by: Patient steam shovel runner used: Yes UTI Severity: Moderate Onset quality: Sudden Duration: 2 days Timing: Constant Progression: Worsening Chronicity: New Associated symptoms: no abdominal pain, no chest pain, no congestion, no cough, no diarrhea, no fatigue, no fever, no headaches, no nausea, no rash, no shortness of breath and no vomiting Review of Systems Constitutional: Negative for chills, fatigue and fever. HENT: Negative for congestion. Eyes: Negative for visual disturbance. Respiratory: Negative for cough and shortness of breath. Cardiovascular: Negative for chest pain, palpitations and leg swelling. Gastrointestinal: Negative for abdominal pain, constipation, diarrhea, nausea and vomiting. Skin: Negative for rash. Neurological: Negative for dizziness and headaches. 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 reaction OBJECTIVE Vitals: 04/30/24 0936 BP: (!) 146/90 BP Location: Left arm Patient Position: Sitting BP Cuff Size: Adult Pulse: 92 Resp: 18 Temp: 96.8 ??F (36 ??C) TempSrc: Temporal SpO2: 96% Weight: 187 lb 6.4 oz (85 kg) Height: 5' 10 (1.778 m) Physical Exam Constitutional: General: He is not in acute distress. Appearance: Normal appearance. Cardiovascular: Rate and Rhythm: Normal rate and regular rhythm. Heart sounds: Normal heart sounds. No murmur heard. Pulmonary: Effort: Pulmonary effort is normal. Breath sounds: Normal breath sounds. No wheezing or rhonchi. Abdominal: General: Bowel sounds are normal. Palpations: Abdomen is soft. There is no mass. Tenderness: There is abdominal tenderness in the suprapubic area. There is no right CVA tenderness,left CVA tenderness, guarding or rebound. Neurological: General: No focal deficit present. Mental Status: He is alert and oriented to person, place, and time. Cranial Nerves: No cranial nerve deficit. Motor: No weakness. Gait: Gait normal. Psychiatric: Mood and Affect: Mood normal. Office Visit on 04/30/2024 Component Date Value Ref Range Status Color, UA 04/30/2024 Yellow Final Clarity, UA 04/30/2024 Cloudy Final Glucose, UA 04/30/2024 Negative Final Bilirubin, UA 04/30/2024 Negative Final Ketones, UA 04/30/2024 Negative Final Spec Grav, UA 04/30/2024 1.025 Final Blood, UA 04/30/2024 Negative Negative, None Detected Final pH, UA 04/30/2024 7.0 Final Protein, UA 04/30/2024 Trace Final 100mg/dl Urobilinogen, UA 04/30/2024 0.2 Final Leukocytes, UA 04/30/2024 Negative Negative, Rare, Trace Final Nitrite, UA 04/30/2024 Positive (A) Negative, None Detected Final QC Media Lot # 04/30/2024 [id number] Final Lot# Expiration Date 04/30/2024 9,302,025 Final ASSESSMENT/PLAN Diagnoses and all orders for this visit: Complicated urinary tract infection -treat with bactrim BID x 10 days -send Ucx for sensitivities -trial naprosyn to help with pain -advised pt contact [facility] if no significant improvement in the next 24-48 hours -advised rtc if sx don't resolve, he agrees with plans - POCT Urinalysis - Urine Culture Routine F/U with PCP as scheduled or sooner prn Current Outpatient Medications: atorvastatin (Lipitor) 20 MG tablet, TAKE 1 TABLET(20 MG) BY MOUTH IN THE MORNING, Disp: 90 tablet,Rfl: 0 clonazePAM (KlonoPIN) 1 MG tablet, Take 1 tablet (1 mg) by mouth if needed in the morning and at bedtime for anxiety (Pt. instructed to take as needed)., Disp: 60 tablet, Rfl: 1 hydrOXYzine HCl (Atarax) 25 MG tablet, Take 1 tablet (25 mg) by mouth 3 times daily., Disp: 90 tablet, Rfl: 1 naloxone (Narcan) 4 mg/0.1 mL nasal spray, Administer 1 spray (4 mg) into affected nostril(s) if needed for opioid reversal. May repeat every 2-3 minutes if needed, alternating nostrils, until medical assistance becomes available., Disp: 2 each, Rfl: 3 naproxen (Naprosyn) 500 MG tablet, Take 1 tablet (500 mg) by mouth if needed in the morning and at bedtime for mild pain., Disp: 20 tablet, Rfl: 0 OLANZapine (ZyPREXA) 5 MG tablet, Take 1 tablet (5 mg) by mouth at bedtime., Disp: 30 tablet, Rfl: 1 [START ON 05/01/2024] oxyCODONE-acetaminophen (Percocet) 7.5-325 MG tablet, Take 1 tablet by mouth every 6 (six) hours if needed for severe pain for up to 7 days. Do not start before May 01, 2024., Disp: 28 tablet, Rfl: 0 sertraline (Zoloft) 100 MG tablet, Take 2 tablets (200 mg) by mouth before breakfast., Disp: 60 tablet, Rfl: 1 sulfamethoxazole-trimethoprim (Bactrim DS) 800-160 MG tablet, Take 1 tablet by mouth 2 times daily for 10 days., Disp: 20 tablet, Rfl: 0 documented in this encounter Plan of Treatment Upcoming Encounters Date Type Department Care Team (Late st Contact Info) Description 05/07/2024 10:30 AM EST Clinical Support [address] [address] Cinda Moura RN 06/11/2024 10:00 AM EST Office Visit [address] [address] Name, MD Harry [address] [place] [address] Scheduled Orders Name Type Priority Associated Diagnoses Orde r Schedule Urine Culture Routine Microbiology Routine Complicated urinary tract infection Ordered: 04/30/2024 documented as of this encounter Procedures Procedure Name Priority Date/Time Associated Diagnosis Comments POCT URINALYSIS DIPSTICK Routine 04/30/2024 10:08 AM EST Complicated urinary tract infection documented in this encounter Results * (ABNORMAL) POCT Urinalysis (04/30/2024 10:08 AM EST) Color, UA Yellow Clarity, UA Cloudy Glucose, UA Negative Bilirubin, UA Negative Ketones, UA Negative Spec Grav, UA 1.025 Blood, UA Negative Negative, None Detected pH, UA 7.0 Protein, UA Trace Comment:100mg/dl Urobilinogen, UA 0.2 Leukocytes, UA Negative Negative, Rare, Trace Nitrite, UA Positive(A) Negative, None Detected QC Media Lot # [id number] Lot# Expiration Date Urine 04/30/2024 10:0 8 AM EST Kellen Galeana DO POINT OF CARE TEST ENTER/EULOGIO T ORDERABLES Final Result documented in this encounter Visit Diagnoses Diagnosis Complicated urinary tract infection- Primary Unspecified pyelonephritis documented in this encounter Additional Health Concerns Assessment Noted Time PHQ-9 Depression Total Score: 23 024 9:52 AM EDT documented as of this encounter Care Teams Cloth Laminating Supervisor Relationship Specialty Start Date End Date Name, MD Harry [address] [place] [address] PCP - General Family Medicine 08/03/15 documented as of this encounter
--- OUTSIDE RECORDS SUMMARY | 2024-04-30 15:19 | XMS_ITS | Encounter Summary ---
Author Organization [employer] Address [address] [facility] 7 [place] [address] Care Team Providers Care Jeep Mechanic Name Role Phone Name, Harry NIELSEN Primary Care Provider [phone] Reason for Visit * Reason Onset Date Comments Error (VOID this visit) 04/30/2024 Encounter Details Date Type Department Care Team ([facility] st Contact Info) Description 04/30/2024 Refill [facility] MEDICINE [address] [place] [address] Cinda Moura, RN PTSD (post-traumatic stress disorder) Social History Tobacco Use Types Packs/Day Years Used Date Smoking Tobacco: Every Day Cigarettes Passive Smoke Exposure: Current Alcohol Use Standard Drinks/Week Comments Never 0 (1 standard drink = 0.6 oz pur e alcohol) Alcohol Answer Date Recorded Frequency of Alcohol Consumption Not on file 10/09/2023 Average Number of Drinks Not on file Frequency of Binge Drinking Not on file [...] AM EDT documented as of this encounter Plan of Treatment Upcoming Encounters Date Type Department Care Team (Late st Contact Info) Description 05/07/2024 10:30 AM EST Clinical Support [address] [address] Cinda Moura RN 06/11/2024 10:00 AM EST Office Visit [address] [address] Name, MD Harry [address] [place] [phone] documented as of this encounter Visit Diagnoses Diagnosis PTSD (post-traumatic stress disorder) Posttraumatic stress disorder documented in this encounter Additional Health Concerns Assessment Noted Time PHQ-9 Depression Total Score: 23 024 9:52 AM EDT documented as of this encounter Care Teams Jeep Mechanic Relationship Specialty Start Date End Date Name, MD Harry [address] [place] [phone] PCP - General Family Medicine 08/03/15 documented as of this encounter
--- OUTSIDE RECORDS SUMMARY | 2024-04-30 15:19 | XMS_ITS | Encounter Summary ---
Author Organization [employer] Address [address] [facility] 7 [place] [address] Care Team Providers Care Net Maker Name Role Phone Name, Harry NIELSEN Primary Care Provider [phone] Reason for Visit * Reason Onset Date Comments Clonazepam at pharmacy already 04/01/2024 Encounter Details Date Type Department Care Team ([facility] st Contact Info) Description 04/01/2024 Refill [facility] MEDICINE [address] [place] [address] Cinda Moura, RN Social History Tobacco Use Types Packs/Day [...] Telephone Encounter - Cinda Moura RN - 04/01/2024 10:28 AM EST TC rina Vo, spoke with Jolene, confirmed patient never picked up Clonazepam RX from 03/25/24 and it has a refill available. Pharmacy to fill and alert patient. documented in this encounter Plan of Treatment Upcoming Encounters Date Type Department Care Team (Late st Contact Info) Description 05/07/2024 10:30 AM EST Clinical Support [facility] MEDICINE [address] [place] [phone] Cinda Moura RN 06/11/2024 10:00 AM EST Office Visit [facility] MED[facility]INE [address] [place] [phone] Name, MD Harry [address] [place] [phone] documented as of this encounter Visit Diagnoses Not on filedocumented in this encounter Additional Health Concerns Assessment Noted Time PHQ-9 Depression Total Score: 23 024 9:52 AM EDT documented as of this encounter Care Teams Net Maker Relationship Specialty Start Date End Date Name, MD Harry [address] [place] [address] PCP - General Family Medicine 08/03/15 documented as of this encounter
--- OUTSIDE RECORDS SUMMARY | 2024-04-30 15:19 | XMS_ITS | Clinical Summary ---
Author Organization [facility] Address [address] [place] [address] 7 [place] [address] Care Team Providers Care Peer Counselor Name Role Phone Name, Harry NIELSEN Primary Care Provider [phone] Allergies Active Allergy Reactions Criticality Noted Date Comments Valproic Acid 09/09/2015 Other reaction(s): Joint pain Other reaction(s): ? reaction Medications * This document contains information received from the source organization and may not represent a complete record from that organization. naloxone (Narcan) 4 mg/0.1 mL nasal spray Administer 1 spray (4 mg) into affected nostril(s) if needed for opioid reversal. May repeat every 2-3 minutes if needed, alternating nostrils, until medical assistance becomes available. 2 each 3 07/27/19 23 Active atorvastatin (Lipitor) 20 MG tablet TAKE 1 TABLET(20 MG) BY MOUTH IN THE MORNING 90 tablet 03/10/20 24 Active clonazePAM (KlonoPIN) 1 MG tabletIndicat ions:PTSD (post-traumat ic stress disorder) Take 1 tablet (1 mg) by mouth if needed in the morning and at bedtime for anxiety (Pt. instructed to take as needed). 60 tablet 1 03/25/20 24 Active sertraline (Zoloft) 100 MG tabletIndicat ions:PTSD (post-traumat ic stress disorder) Take 2 tablets (200 mg) by mouth before breakfast. 60 tablet 1 03/25/20 24 Active hydrOXYzine HCl (Atarax) 25 MG tablet Take 1 tablet (25 mg) by mouth 3 times daily. 90 tablet 1 03/25/20 24 Active OLANZapine (ZyPREXA) 5 MG tablet Take 1 tablet (5 mg) by mouth at bedtime. 30 tablet 1 03/25/20 24 Active oxyCODONE-jackie taminophen (Percocet) 7.5-325 MG tabletIndicat ions:Lumbago with sciatica, left side Take 1 tablet by mouth every 6 (six) hours if needed for severe pain for up to 7 days. Do not start before May 01, 2024. 28 tablet 05/01/19 25 025 Active sulfamethoxaz ole-trimethop rim (Bactrim DS) 800-160 MG tablet Take 1 tablet by mouth 2 times daily for 10 days. 20 tablet 04/30/19 25 025 Active naproxen (Naprosyn) 500 MG tablet Take 1 tablet (500 mg) by mouth if needed in the morning and at bedtime for mild pain. 20 tablet 04/30/19 25 026 Active oxyCODONE-jackie taminophen (Percocet) 7.5-325 MG tabletIndicat ions:Lumbago with sciatica, left side Take 1 tablet by mouth every 6 (six) hours if needed for severe pain for up to 28 days. Do not start before March 03, 2024. 112 tablet 03/03/20 24 024 Discontinued(Re order (will not trigger notification to Pharmacy)) oxyCODONE-jackie taminophen (Percocet) 7.5-325 MG tabletIndicat ions:Lumbago with sciatica, left side Take 1 tablet by mouth every 6 (six) hours if needed for severe pain for up to 28 days. 112 tablet 04/01/20 24 025 Discontinued(Re order (will not trigger notification to Pharmacy)) Active Problems Problem Noted Date Diagnosed Date Post-traumatic stress disorder, unspecified 12/08 Assessment & Plan (07/16/2023 10:28 AM EDT): with hypervigilance, irritability and volatility, nightmares, although no true flashbacks. Also PMH: chronic back pain with cauda equina syndrome. He is doing extremely well with stable mood, good sleep, and without hallucinations, on simplified regimen and will continue Olanzapine 5 mg at bedtime, Sertraline 100 mg daily, and Clonazepam 1 mg TID (but not with opioid pain medication). As this provider will be retiring, patient is now transferred back to his PCP for continued medication management. He should call [facility] with any questions or concerns. I have wished him well. He agrees with the plan. Assessment & Plan (05/01/2023 12:27 PM EST): with hypervigilance, irritability and volatility, nightmares, although no true flashbacks. Also PMH: chronic back pain with cauda equina syndrome. Pt had done very well, but then stopped his medications and symptoms recurred. Has recently restarted all, but notes that he is still quite anxious and not sleeping well, awakens several times per night. Has taken Seroquel 50 mg (prescribed for another person) which helps but causes restless legs. Will have Olanzapine 5 mg at bedtime which will hopefully not have the same side effect. If this is helpful, may be able to simplify regimen. Meanwhile, continue Aripiprazole 10 mg daily, Amitriptyline 50 mg at bedtime, Prazosin 2 mg 3 at bedtime, Clonazepam 1 mg TID (but not with opioid pain medication), Sertraline 100 mg daily. Today 05/01/2023 provider informed the patient that I would be retiring, but we would make every effort to ensure continuity of care. F/U with me in 1 month. He agrees with the plan. Assessment & Plan (02/06/2023 12:11 PM EDT): with hypervigilance, irritability and volatility, nightmares, although no true flashbacks. Also PMH: chronic back pain with cauda equina syndrome. Pt had done very well, but then stopped his medications and symptoms recurred. Recently restarted several (but not all). Recommend utilizing [facility] pharmacy with [facility], and pt is agreeable. New Rx's sent now for all medications: Aripiprazole 10 mg daily, Amitriptyline 50 mg at bedtime, Prazosin 2 mg 3 at bedtime, Clonazepam 1 mg TID (but not with opioid pain medication), Sertraline 100 mg daily. F/U with me in 1 month. He agrees with the plan. Assessment & Plan (05/08/2022 12:04 PM EST): with hypervigilance, irritability and volatility, nightmares, although no true flashbacks. Also PMH: chronic back pain with cauda equina syndrome. Pt is doing much better. Continue current medications. Reminded to avoid taking Conazepam with Percocet 7.5/325. For sleep, urged to increase fresh air and exercise. Continue current medications. F/U with me in 2 months. He agrees with the plan. Depressive disorder 08/16/2022 Fecal incontinence not due to organic disease Seasonal allergic reaction 08/16/2022 Urinary incontinence 08/16/2022 Severe episode of recurrent major depressive disorder, without psychotic features 09/26/2017 Seasonal allergic rhinitis 09/26/2017 Occult blood in stools 02/05/2017 Anxiety 09/10/2015 Assessment & Plan (12/30/2022 9:48 PM EDT): Patient with symptoms of anhedonia, hopelessness, sleep disturbance, fatigued, poor appetite, trouble concentrating, restlessness, nervousness, over-worrying, trouble relaxing, irritability and fearfulness. Symptoms occur nearly everyday and have been present for the last 6 months indicating a severe impact on social and occupational functioning. Symptoms are presented in the context of trauma history, chronic pain and severe depression. Patient will benefit from receiving OP individual therapy, medication management and adding coping mechanisms into daily routine. At this time Ruddy Garcia meets criteria for Visit Diagnoses: Problem List Items Addressed This Visit Other Post-traumatic stress disorder, unspecified Anxiety Relevant Orders Referral to Behavioral Health Depressive disorder Other Visit Diagnoses Severe episode of recurrent major depressive disorder, without psychotic features ([facility]) - Primary Patient ready to address current needs Yes Strengths include strong family support PLAN: 1. Follow up with [facility]: Not recommended for follow-up 2. Patient goal is to manage his symptoms by doing medication management 3. Behavioral Recommendations a. Referral for OP individual therapy b. Referral to med management with [facility] c. Incorporating mindfulness techniques into daily routine Insomnia 09/10/2015 Low back pain 08/03/2015 Neurogenic bladder 08/03/2015 Cauda equina compression 08/03/2015 Resolved Problems Problem Noted Date Diagnosed Date Resolved Date Urinary tract infection 08/16/202204/10 Encounters * This document contains information received from the source organization and may not represent a complete record from that organization. Date Type Department Care Team Description 04/30/2024 9:20 AM EST Office Visit [facility] [place] [facility] [place] [address] Kellen Galeana DO Complicated urinary tract infection (Primary Dx) 04/30/2024 Refill [facility] [place] [address] Cinda Moura, JOHN PTSD (post-traumatic stress disorder) 04/29/[address] [address] Harry Recio MD Nurse Triage 04/29/[address] [address] Harry Recio MD Lumbago with sciatica, left side 04/22/[address] [address] Harry Recio MD Housing Form (I called regarding a reasonable accommodation request, from [employer]. The patient states that he is requesting for his CORD MAKER to be his live-in aide, and that he will need care on a continuous basis. He is requesting to be called, when the form is ready to be picked up.) 04/03/[address] [address] Kristine Duggan RN 04/01/[address] [address] Cinda Moura RN 04/01/2024 Refill [facility] [place] [address] Harry Recio MD Lumbago with sciatica, left side 03/28/[address] [address] Kristine Duggan RN PRE-OP 03/28/[address] [address] Harry Recio MD 03/27/2024 4:00 PM EST Office Visit [facility] [place] [address] Harry Recio MD Depressive disorder (Primary Dx); Anxiety; Other cataract of both eyes; History of colonoscopy; Encounter for immunization 03/25/2024 Telephone [facility] [place] [address] Harry Recio MD Appointment Request; [facility] FOLDER OPERATOR RV today 03/24/2024 Telephone [facility] [place] [address] Harry Recio MD fyi 03/24/2024 Telephone [facility] [place] [address] Cinda Moura, JOHN Recommend FOLDER OPERATOR Tier 2 03/06/2024 Refill [facility] [place] [address] Viridiana Arvizu NP 02/26/2024 Refill [facility] [place] [address] Harry Recio MD Lumbago with sciatica, left side 02/22/2024 Telephone [facility] [place] [address] Kristine Duggan, JOHN 02/19/2024 Refill [facility] [place] [address] Harry Recio MD 02/06/2024 Telephone [facility] [place] [address] Harry Recio MD Appointment Request 02/04/2024 Telephone [facility] [place] [address] Chantal Bhardwaj MA CHART PREP 01/31/2024 9:30 AM EDT Clinical Support [facility] [place] [address] Cinda Moura, mold maker apprentice low back pain, unspecified back pain laterality, unspecified whether sciatica present (Primary Dx) 01/31/2024 Refill [facility] [place] [address] Cinda Moura, RN Lumbago with sciatica, left side 01/31/2024 Travel from Last 3 Months Immunizations Name Administration Dates Next Due DT (pediatric) 07/26/2006 Hep B, Unspecified 07/26/2006 Influenza injectable quadriv alent IIV4 with preservative 12/14/2022 Influenza injectable quadriv alent preservative free 04/23/2019 Pfizer Covid-19 Vaccine 12+ 03/07/2021,,06/18/2020 Pneumococcal Conjugate PCV 20 03/27/2024 Pneumococcal Polysaccharide PPSV23 03/27/2018 TD (adult), 2 Lf tetanus tox oid, preservative free, adsorbed 08/31/2023 Tdap 09/25/2011 Social History Tobacco Use Types Packs/Day Years [...] is your housing situation today? I have warrenmarcelina rudd 08/31/[address] you [...] Orientation Straight 02/06/2022 10 :29 AM EDT Last Filed Vital Signs Vital Sign Reading [...] Mass Index 26.89 04/30/2024 9:36 AM EST Plan of Treatment Upcoming Encounters Date Type Department Care Team (Late st Contact Info) Description 05/07/2024 10:30 AM EST Clinical Support [facility] MEDICINE [address] [place] [phone] Cinda Moura, JOHN 06/11/2024 10:00 AM EST Office Visit [facility] MEDICINE [address] [place] [phone] Name, MD Harry [address] [place] [phone] Health Maintenance Due Date Last Done Comments CT Colonography 1966 FIT DNA/Cologuard 1966 FIT 1966 FOBT 1966 HIV Screening 1966 Sigmoidoscopy 1966 Hepatitis C Screening 02/16/1984 Hepatitis B Vaccines (2 of 3 - 19+ 3-dose series) 08/23/2006 07/26/2006 Zoster Vaccines (1 of 2) 02/16/2016 COVID-19 Vaccine (2023-2 5 season) 2023 03/07/2021, 07/09/2020, 06/18/2020 Influenza Vaccine (#1) 2023 3, 04/23/2019 Depression Monitoring (PHQ-9) 07/31/2024, 01/31/2024 SDOH Screening 08/30/2024 08/31/2023 Alcohol/Substance Use Screening 10/08/2024 10/09/2023 Depression Screening 01/30/2025 01/31/2024, 01/31/2024 Tobacco Screening 04/30/2025 04/30/2024 Lipid Panel 08/17/2026 08/17/2021, 08/18/2020 Colonoscopy 01/23/2029 01/24/2024, 01/24/2024 Colorectal Cancer Screening 01/23/2029 DTaP/Tdap/Td Vaccines (3 - T d or Tdap) 08/30/2033 08/31/2023, 09/25/2011 RSV Patients and Patients Aged 60 years or older (1 - 1-dose 75+ series) 2041 Pneumococcal Vaccine: Pediatrics (0 to 5 Years) and At-Risk Patients (6 to 64 Years) Completed 03/27/2024, 03/27/2018 HIB Vaccines Aged Out No longer eligi ble based on patient's age to complete this topic HPV Vaccines Aged Out No longer eligi ble based on patient's age to complete this topic Hepatitis A Vaccines Aged Out No long er eligible based on patient's age to complete this topic IPV Vaccines Aged Out No longer eligi ble based on patient's age to complete this topic Meningococcal Vaccine Aged Out No stefano thomas eligible based on patient's age to complete this topic RSV under 20 months Aged Out No longe r eligible based on patient's age to complete this topic Rotavirus Vaccines Aged Out No longer eligible based on patient's age to complete this topic Procedures Procedure Name Priority Date/Time Associated Diagnosis Comments POCT URINALYSIS DIPSTICK Routine 04/30/2024 10:08 AM EST Complicated urinary tract infection POCT CAROL-14 URINE DRUG SCREEN Routine 01/31/2024 9:50 AM EDT Chronic low back pain, unspecified back pain laterality, unspecified whether sciatica present HM COLONOSCOPY Routine 01/24/2024 LIPID PANEL, STANDARD Routine 08/17/2021 9:14 AM EDT from Last 3 Months or Most Recently Relevant to Health Maintenance Results * (ABNORMAL) POCT Urinalysis (04/30/2024 10:08 [...] Date Urine 04/30/2024 10:0 8 AM EST us Kellen Galeana DO POINT OF CARE TEST ENTER/EULOGIO T ORDERABLES Final Result * POCT CAROL-14 Urine Drug Screen (01/31/2024 9:50 AM EDT) THC Positive Opiate Screen, Urine Positive Benzodiazepines Screen, Urine Positive TCA, Urine Positive Oxycodone Screen, Urine Positive Urine Urine specimen obtained by clean catch procedure / Unknown 01/31/2024 9:50 AM EDT Cinda Pastrana RN - 01/31/2024 9:50 AM EDT UTOX cup Lot#[id number] Exp. 03/15/25 Internal Pass Control us Harry Recio MD POINT OF CARE TEST ENTER/EDIT OR DERABLES Final Result * (ABNORMAL) Colonoscopy (01/24/2024) Colonoscopy Abnormal(A ) Normal 01/24/2024 us Harry Recio MD HEALTH MAINTENANCE Final Result * (ABNORMAL) LIPID PANEL, STANDARD (08/17/2021 9:14 AM EDT) Chol/HDLC Ratio 5.6(H) <5.0 (calc) [facility] Cholesterol, Total 152 <200 mg/dL [facility] HDL Cholesterol 27(L) > OR = 40 mg/dL [facility] LDL Cholesterol 93 mg/dL (calc) [facility] Comment: Reference range: <100 ?? Desirable range <100 mg/dL for primary prevention; ?? <70 mg/dL for patients with CHD or diabetic patients ?? with > or = 2 CHD risk factors. ?? LDL-C is now calculated using the Mart ?? calculation, which is a validated novel method providing ?? better accuracy than the Friedewald equation in the ?? estimation of LDL-C. ?? Josh VICKERS et al. CADEN. 2013;310(19): 0698-4970 ?? (http://Merge.rs AG.ID.me/faq/CFH920) Non-HDL Cholesterol 125 <130 mg/dL (calc) [facility] Comment: For patients with diabetes plus 1 major ASCVD risk ?? factor, treating to a non-HDL-C goal of <100 mg/dL ?? (LDL-C of <70 mg/dL) is considered a therapeutic ?? option. Triglycerides 229(H) <150 mg/dL [facility] Comment: ?? If a non-fasting specimen was collected, consider repeat triglyceride testing on a fasting specimen if clinically indicated. ?? Paulina et al. J. of Clin. Lipidol. 2015;9:129-169. ?? 08/17/2021 9:14 AM EDT us Harry Name LAB BLOOD ORDERABLES Final Resul t [facility] [address] from Last 3 Months or Most Recently Relevant to Health Maintenance Insurance loor MAYRA Diaz [id number] [facility] STANDARD [facility] MEDICARE ADVANTAGE HMO Care Teams Peer Counselor Relationship Specialty Start Date End Date Name, MD Harry [address] [place] [id number] PCP - General Family Medicine 08/03/15
--- OUTSIDE RECORDS SUMMARY | 2024-04-30 15:19 | XMS_ITS | Encounter Summary ---
Author Organization [employer] Address [address] [facility] 7 [place] [address] Care Team Providers Care Base Brander Name Role Phone Name, Harry NIELSEN Primary Care Provider [phone] Reason for Visit * Reason Onset Date Comments Med Refill 04/01/2024 Encounter Details Date Type Department Care Team ([facility] st Contact Info) Description 04/01/2024 Refill [facility] [address] [place], [place] [phone] Name, MD Harry [address] [place] [address] Lumbago with sciatica, left side Social History [...] the past 12 months, has t he [employer], gas, oil or water [employer] threatened to shut off services in your [...] encounter Miscellaneous Notes * Telephone Encounter - Issa Velez - 04/01/2024 9:07 AM EST TC from pt requesting medication refill. Medications needing refill : oxyCODONE-acetaminophen (Percocet) 7.5-325 MG tablet clonazePAM (KlonoPIN) 1 MG tablet To be sent to: [id number] - [address] AT [facility] documented in this encounter Plan of Treatment Upcoming Encounters Date Type Department Care Team ([facility] st Contact Info) Description 05/07/2024 10:30 AM EST Clinical Support [facility] MEDIC[facility] [address] [place] [phone] Cinda Moura RN 06/11/2024 10:00 AM EST Office Visit [facility] [address] [place] [address] Name, MD Harry [address] [place] [id number] documented as of this encounter Visit Diagnoses Diagnosis Lumbago with sciatica, left side documented in this encounter Additional Health Concerns Assessment Noted Time PHQ-9 Depression Total Score: 23 024 9:52 AM EDT documented as of this encounter Care Teams Base Brander Relationship Specialty Start Date End Date Name, MD Harry [address] [place] [address] PCP - General Family Medicine 08/03/15 documented as of this encounter
--- OUTSIDE RECORDS SUMMARY | 2024-04-30 15:20 | XMS_ITS | Encounter Summary ---
Author Organization [employer] Address [address] [facility] 7 [place] [address] Care Team Providers Care Director Electronics Name Role Phone Name, Harry NIELSEN Primary Care Provider [phone] Reason for Visit * Reason Onset Date Comments Appointment Request 02/06/2024 Encounter Details Date Type Department Care Team ([facility] st Contact Info) Description 02/06/2024 Telephone [facility] MEDICINE [address] [place], [place] [phone] Name, MD Harry [address] [place] [address] Appointment Request Social History Tobacco Use Types Packs/Day Years [...] your housing situation today? I have warren rdud 08/31/[address] you li [...] encounter Miscellaneous Notes * Telephone Encounter - Yovani Pennington - 02/06/2024 2:54 PM EDT Tc from pt requesting to r/s pre-op appt scheduled for 02/20/24, appt has been cancelled. Please contact patient at [phone] [place] documented in this encounter Plan of Treatment Upcoming Encounters Date Type Department Care Team (Late st Contact Info) Description 05/07/2024 10:30 AM EST Clinical Support [facility] MEDICINE [address] [place] [phone] Cinda Moura RN 06/11/2024 10:00 AM EST Office Visit [facility] [address] [place] [phone] Name, MD Harry [address] [place] [address] documented as of this encounter Visit Diagnoses Not on filedocumented in this encounter Additional Health Concerns Assessment Noted Time PHQ-9 Depression Total Score: 23 024 9:52 AM EDT documented as of this encounter Care Teams Director Electronics Relationship Specialty Start Date End Date Name, MD Harry [address] [place] [address] PCP - General Family Medicine 08/03/15 documented as of this encounter
--- OUTSIDE RECORDS SUMMARY | 2024-04-30 15:20 | XMS_ITS | Encounter Summary ---
Author Organization [employer] Address [address] [facility] 7t [place] [address] Care Team Providers Care Shoe Laster Name Role Phone Name, Harry NIELSEN Primary Care Provider [phone] Encounter Details Date Type Department Care Team ([facility] st Contact Info) Description 05/04/2023 Abstract [facility] MEDICINE [address] [place], [place] [phone] Name, MD Harry [address] [place] [address] Social History Tobacco Use Types Packs/Day Years Used Date Smoking Tobacco: Every Day Cigarettes Alcohol Use Standard Drinks/Week Comments Never 0 (1 standard drink = 0.6 oz pur e alcohol) Depression Answer Date Recorded Patient Health Questionnaire-9 Score 11 05/01/2023 Patient Health Questionnaire-9 Score 11 05/01/2023 Last PHQ-9: Questionnaire Data Not on file 0 05/01/2023 Housing Stability Answer Date Recorded What is your housing situation today? I have warren rudd 02/05/[address] you li ve. Do you have problems with any of the following? None of the above 02/05/2023 Food Insecurity Answer Date Recorded Within the past 12 months, y ou worried that your food would run out before you got money to buy more: Never True 02/05/2023 Within the past 12 months,th e food you bought just didn't last and you didn't have enough money to get more: Never True Transportation Answer Date Recorded In the past 12 months, has l ack of transportation kept you from medical appts, meetings, work or from getting things needed for daily living? No 02/05/2023 Utilities Answer Date Recorded In the past 12 months, has t he electric, gas, oil or water company threatened to shut off services in your home? No 02/05/2023 Depression Answer Date Recorded Patient Health Questionnaire-2 Score 3 05/01/2023 Sex and Gender Information Value Date Recorded Sex Assigned at Male 02/06/2022 10:29 AM EDT Legal Sex Male 10:29 AM EDT Gender Identity Male 02/06/2022 10:29 AM EDT Sexual Orientation Straight 02/06/2022 10 :29 AM EDT documented as of this encounter Plan of Treatment Upcoming Encounters Date Type Department Care Team (Late st Contact Info) Description 05/07/2024 10:30 AM EST Clinical Support [address] [address] Cinda Moura RN 06/11/2024 10:00 AM EST Office Visit [address] [address] Name, MD Harry [address] [place] [phone] documented as of this encounter Visit Diagnoses Not on filedocumented in this encounter Additional Health Concerns Assessment Noted Time PHQ-9 Depression Total Score: 11 024 11:07 AM EST documented as of this encounter Care Teams Shoe Laster Relationship Specialty Start Date End Date NameHarry MD [address] [place] [phone] PCP - General Family Medicine 08/03/15 documented as of this encounter
--- OUTSIDE RECORDS SUMMARY | 2024-04-30 15:20 | XMS_ITS | Encounter Summary ---
Author Organization [employer] Address 75 [facility] 7 [place] [address] Care Team Providers Care Braiding Operator Name Role Phone Name, Harry NIELSEN Primary Care Provider [phone] Carlos Gr Unavailable Unavailable Reason for Visit * Reason Onset Date Comments Referral 06/28/2022 Encounter Details Date Type Department Care Team ([facility] st Contact Info) Description 06/28/2022 Telephone [facility] [address] [place], [place] [phone] Name, MD Harry 230 [place] [address] Referral Social History Tobacco Use Types Packs/Day Years Used Date Smoking Tobacco: Never Assessed Alcohol Answer Date Recorded Frequency of Alcohol [...] Orientation Straight 02/06/2022 10 :29 AM EDT COVID-19 Exposure Response Date Recorded In the last 10 days, have yo u been in contact with someone who was confirmed or suspected to have Coronavirus/COVID-19? No / Unsure 08/16/2022 2:58 PM EDT documented as of this encounter Miscellaneous Notes * Telephone Encounter - Yovani Pennington - 06/28/2022 12:01 PM EDT Tc from pt requesting a referral for [facility]. Please contact at [phone] documented in this encounter Plan of Treatment Upcoming Encounters Date Type Department Care Team (Late st Contact Info) Description 05/07/2024 10:30 AM EST Clinical Support [facility] [address] [place] [address] Cinda Moura RN 06/11/2024 10:00 AM EST Office Visit [facility] [address] [place] [address] Name, MD Harry [address] [place] [address] documented as of this encounter Visit Diagnoses Diagnosis Blurred vision, bilateral- Primary Other specified visual disturbances documented in this encounter Additional Health Concerns Assessment Noted Time PHQ-9 Depression Total Score: 8 01/30/20 23 10:41 AM EST documented as of this encounter Care Teams Braiding Operator Relationship Specialty Start Date End Date Name, MD Harry [address] [place] [address] PCP - General Family Medicine 08/03/15 Carlos Gr FNP 230 [place] [address] Nurse Practitioner Family Medicine 02/28/23 03/07/23 documented as of this encounter
--- OUTSIDE RECORDS SUMMARY | 2024-04-30 15:20 | XMS_ITS | Encounter Summary ---
Author Organization [employer] Address 75 [facility] 7 [place] [address] Care Team Providers Care Application Manager Name Role Phone Name, Harry NIELSEN Primary Care Provider [phone] Reason for Visit * Reason Onset Date Comments Med Refill 12/18/2023 Encounter Details Date Type Department Care Team ([facility] st Contact Info) Description 12/18/2023 Telephone [facility] MED[facility]INE 230 [place], [place] [phone] Name, MD Harry 230 [place] [address] Med Refill Social History Tobacco Use Types Packs/Day Years [...] Answer Date Recorded Patient Health Questionnaire-9 Score 4 07/16/2023 Patient Health Questionnaire-9 Score 4 07/16/2023 Last PHQ-9: Questionnaire Data Not on file 0 07/16/2023 Housing Stability Answer Date Recorded What is [...] Answer Date Recorded Patient Health Questionnaire-2 Score 2 07/16/2023 Sex and Gender Information Value Date Recorded Sex Assigned at Male 02/06/2022 10:29 AM EDT Legal Sex Male 10:29 AM EDT Gender Identity Male 02/06/2022 10:29 AM EDT Sexual Orientation Straight 02/06/2022 10 :29 AM EDT documented as of this encounter Miscellaneous Notes * Telephone Encounter - Tri Zamora - 12/18/2023 3:15 PM EDT TC from pt requesting medication refill. Medications needing refill : clonazePAM (KlonoPIN) 1 MG tablet To be sent to: [facility] documented in this encounter Plan of Treatment Upcoming Encounters Date Type Department Care Team (Late st Contact Info) Description 05/07/2024 10:30 AM EST Clinical Support [facility] MED[facility]INE [address] [place] [phone] Cinda Moura RN 06/11/2024 10:00 AM EST Office Visit [address] [address] Name, MD Harry [address] [place] [address] documented as of this encounter Visit Diagnoses Not on filedocumented in this encounter Additional Health Concerns Assessment Noted Time PHQ-9 Depression Total Score: 4 07/16/19 24 9:39 AM EDT documented as of this encounter Care Teams Application Manager Relationship Specialty Start Date End Date Name, MD Harry [address] [place] [address] PCP - General Family Medicine 08/03/15 documented as of this encounter
--- OUTSIDE RECORDS SUMMARY | 2024-04-30 15:20 | XMS_ITS | Encounter Summary ---
Author Organization [employer] Address 75 [facility] 7 [place] [address] Care Team Providers Care Carport Erector Name Role Phone Name, Harry NIELSEN Primary Care Provider [phone] Reason for Visit * Reason Onset Date Comments Med Refill 03/30/2023 Encounter Details Date Type Department Care Team ([facility] st Contact Info) Description 03/30/2023 Telephone [facility] MEDICINE 230 [place], [place] [phone] Name, MD Harry 230 [place] [address] Med Refill Social History Tobacco Use Types Packs/Day Years Used Date Smoking Tobacco: Every Day Cigarettes Alcohol Use Standard Drinks/Week Comments Never 0 (1 standard drink = 0.6 oz pur e alcohol) Depression Answer Date Recorded Patient Health Questionnaire-9 Score 8 02/06/2023 Patient Health Questionnaire-9 Score 8 02/06/2023 Last PHQ-9: Questionnaire Data Not on file [...] Answer Date Recorded Patient Health Questionnaire-2 Score 1 02/06/2023 Sex and Gender Information Value Date Recorded Sex Assigned at Male 02/06/2022 10:29 AM EDT Legal Sex Male 10:29 AM EDT Gender Identity Male 02/06/2022 10:29 AM EDT Sexual Orientation Straight 02/06/2022 10 :29 AM EDT documented as of this encounter Miscellaneous Notes * Telephone Encounter - Kellen Guevara LPN - 03/30/2023 10:47 AM EST Medication was sent to [id number] on 02/06/23 #90 to soon for refill. * Telephone Encounter - Rosie Branham - 03/30/2023 10:41 AM EST TC from pt requesting medication refill. Medications needing refill : amitriptyline (Elavil) 50 MG tablet To be sent to: [id number] [facility] documented in this encounter Plan of Treatment Upcoming Encounters Date Type Department Care Team (Late st Contact Info) Description 05/07/2024 10:30 AM EST Clinical Support [facility] [address] [place] [address] Cinda Moura RN 06/11/2024 10:00 AM EST Office Visit [facility] [address] [place] [address] Name, MD Harry [address] [place] [address] documented as of this encounter Visit Diagnoses Not on filedocumented in this encounter Additional Health Concerns Assessment Noted Time PHQ-9 Depression Total Score: 8 02/07/20 23 10:45 AM EDT documented as of this encounter Care Teams Carport Erector Relationship Specialty Start Date End Date Name, MD Harry [address] [place] [address] PCP - General Family Medicine 08/03/15 documented as of this encounter
--- OUTSIDE RECORDS SUMMARY | 2024-04-30 15:20 | XMS_ITS | Encounter Summary ---
Author Organization [employer] Address 75 [facility] 7 [place] [address] Care Team Providers Care Rebar Fabricator Name Role Phone Name, Harry NIELSEN Primary Care Provider [phone] Reason for Visit * Reason Onset Date Comments PRE-OP 03/28/2024 Encounter Details Date Type Department Care Team ([facility] st Contact Info) Description 03/28/2024 Telephone [facility] 230 [place] [address] Kristine Duggan RN PRE-OP Social History Tobacco Use Types Packs/Day Years [...] Telephone Encounter - Kristine Duggan RN - 04/01/2024 10:27 AM EST Tc to pt via [facility] id: [employer] [phone] to schedule pt for PRE-OP appt for Right Eye cataract surgery on06/16/24. No answer, lvm to return call and ask to speak to blue team nurses. Date of Surgery: right eye 06/16/2024 left eye 08/18/2024 Surgical procedure being done: Cataract surgery Type of anesthesia: MAC Lab needed: No EKG: Yes Surgeon's name: Lupe Woodruff, Facility name: [facility] Surgeon's office number: [phone] Surgeon's office fax number: [phone] Contact name (person you spoke with): Lakeshia Last office note from surgeon requested: Yes * Telephone Encounter - Leanne Diggs - 03/31/2024 10:42 AM EST Date of Surgery: right eye 06/16/2024 left eye 08/18/2024 Surgical procedure being done: Cataract surgery Type of anesthesia: MAC Lab needed: No EKG: Yes Surgeon's name: Lupe Woodruff, Facility name: [facility] Surgeon's office number: [phone] Surgeon's office fax number: [phone] Contact name (person you spoke with): Lakeshia Last office note from surgeon requested: Yes Send Message to Deirdre Hoffman and Sunday Salinas * Telephone Encounter - Kristine Duggan RN - 03/28/2024 4:17 PM EST Tc to [facility] to confirm pre-op appt information and we've already received the surgeon last ov note. No answer, lvm to return call to ask to speak to blue team Nurses. Date of Surgery: Surgical Procedure being done: Surgeon's Name: Type of Anesthesia: Surgeon office contact: phone: fax: contact name: ( person you spoke with) Labs Needed: EKG: documented in this encounter Plan of Treatment Upcoming Encounters Date Type Department Care Team (Late st Contact Info) Description 05/07/2024 10:30 AM EST Clinical Support [address] [address] Cinda Moura RN 06/11/2024 10:00 AM EST Office Visit [address] [address] NameHarry MD [address] [place] [address] documented as of this encounter Visit Diagnoses Not on filedocumented in this encounter Additional Health Concerns Assessment Noted Time PHQ-9 Depression Total Score: 23 024 9:52 AM EDT documented as of this encounter Care Teams Rebar Fabricator Relationship Specialty Start Date End Date Harry Recio MD [address] [place] [address] PCP - General Family Medicine 08/03/15 documented as of this encounter
--- OUTSIDE RECORDS SUMMARY | 2024-04-30 15:20 | XMS_ITS | Encounter Summary ---
Author Organization [employer] Address 75 [facility] 7t [place] [address] Care Team Providers Care Assistant Professor Of Drama Name Role Phone Name, Harry NIELSEN Primary Care Provider [phone] Reason for Visit * Reason Comments Med Refill Encounter Details Date Type Department Care Team (Late st Contact Info) Description 05/09/2023 Refill [facility] 230 [place], [place] [phone] Carlos Gr FNP PTSD (post-traumatic stress disorder) Social History Tobacco [...] Description 05/07/2024 10:30 AM EST Clinical Support [address] [address] Cinda Moura RN 06/11/2024 10:00 AM EST Office Visit [address] [address] Name, MD Harry [address] [place] [address] documented as of this encounter Visit Diagnoses Diagnosis PTSD (post-traumatic stress disorder) Posttraumatic stress disorder documented in this encounter Additional Health Concerns Assessment Noted Time PHQ-9 Depression Total Score: 11 024 11:07 AM EST documented as of this encounter Care Teams Assistant Professor Of Drama Relationship Specialty Start Date End Date Name, MD Harry [address] [place] [address] PCP - General Family Medicine 08/03/15 documented as of this encounter
== END 2024-04-30 13:15 | disposition home or self-care (01) ==
LOC: HO.HHCLNP 13:14
PROVIDERS: Visit Provider Family Medicine
DX: N39.0 Urinary tract infection, site not specified (principal)
CPT/HCPCS: 87086; 87088; 87186

== ENCOUNTER 2024-08-12 13:17 | Outpatient (REF) | payer MEDICARE, SELFPAY ==
--- NOTE | ~2024-08-12 | US_ITS ---
EXAMINATION: US SCROTUM HISTORY: testicular discomfort, Hx of hydrocele. COMPARISON: There are no prior studies for comparison. FINDINGS: Real-time grayscale ultrasound imaging of the scrotum was performed. RIGHT TESTICLE: The right testis measures 4.0 x 2.2 x 2.7 cm and demonstrates normal homogeneous echotexture. No masses are seen. The right testis demonstrates normal color Doppler flow. RIGHT EPIDIDYMIS: Normal in size, shape, and vascularity. There is an epididymal head cyst measuring 5 x 4 x 4 mm. LEFT TESTICLE: The left testis measures 4.1 x 2.5 x 2.4 cm and demonstrates normal homogeneous echotexture. No masses are seen. The left testis demonstrates normal color Doppler flow. LEFT EPIDIDYMIS: Normal in size, shape, and vascularity. VARICOCELE: None. HYDROCELE: There are small bilateral hydroceles. OTHER COMMENTS: None. US/US scrotum IMPRESSION: Small bilateral hydroceles. 5 mm right epididymal head cyst. Otherwise unremarkable scrotal ultrasound. Electronically signed by: Jair Gibbs MD 08/12/2024 02:07 PM EDT
--- OUTSIDE RECORDS SUMMARY | 2024-08-12 14:34 | XMS_ITS | Encounter Summary ---
Author Organization [employer] Address 75 [facility] 7 [place] [address] Care Team Providers Care Well Puller Name Role Phone Name, Harry NIELSEN Primary Care Provider [phone] Reason for Visit * Reason Comments Med Refill Encounter Details Date Type Department Care Team ([facility] st Contact Info) Description 05/09/2023 Refill [facility] 230 [place] [address] Carlos Gr FNP PTSD (post-traumatic stress disorder) [...] is your housing situation today? I have warrne rudd 02/05/[address] you [...] Care Team (Late st Contact Info) Description 09/02/2024 2:00 PM EDT Office Visit [address] [address] NameHarry MD [address] [place] [address] 09/29/2024 2:00 PM EDT Clinical Support [address] [address] Cinda Moura, RN documented as of this encounter Visit Diagnoses Diagnosis PTSD (post-traumatic stress disorder) Posttraumatic stress disorder documented in this encounter Additional Health Concerns Assessment Noted Time PHQ-9 Depression Total Score: 11 024 11:07 AM EST documented as of this encounter Care Teams Well Puller Relationship Specialty Start Date End Date Harry Recio MD [address] [place] [address] PCP - General Family Medicine 08/03/15 documented as of this encounter
--- OUTSIDE RECORDS SUMMARY | 2024-08-12 14:34 | XMS_ITS | Encounter Summary ---
Author Organization [employer] Address 75 [facility] 7 [place] [address] Care Team Providers Care Refinery Operator Reforming Unit Name Role Phone Name, Harry NIELSEN Primary Care Provider [phone] Reason for Visit * Reason Onset Date Comments Med Refill 03/30/2023 Encounter Details Date Type Department Care Team ([facility] st Contact Info) Description 03/30/2023 Telephone [facility] MED[facility]INE 230 [place], [place] [phone] Name, MD Harry [address] [place] [address] Med Refill Social History Tobacco Use Types [...] 10:47 AM EST [id number] #90 to soon for refill. * Telephone Encounter - Rosie Branham - 03/30/2023 10:41 AM EST TC from pt requesting medication refill. Medications needing refill : amitriptyline (Elavil) 50 MG tablet To be sent to: [id number] [facility] documented in this encounter Plan of Treatment Upcoming Encounters Date Type Department Care Team ([facility] st Contact Info) Description 09/02/2024 2:00 PM EDT Office Visit [address] [address] Name, MD Harry [address] [place] [address] 09/29/2024 2:00 PM EDT Clinical Support [address] [address] Cinda Moura, RN documented as of this encounter Visit Diagnoses Not on filedocumented in this encounter Additional Health Concerns Assessment Noted Time PHQ-9 Depression Total Score: 8 02/07/20 23 10:45 AM EDT documented as of this encounter Care Teams Refinery Operator Reforming Unit Relationship Specialty Start Date End Date Name, MD Harry [address] [place] [address] PCP - General Family Medicine 08/03/15 documented as of this encounter
--- OUTSIDE RECORDS SUMMARY | 2024-08-12 14:34 | XMS_ITS | Encounter Summary ---
Author Organization [employer] Address 75 [facility] 7 [place] [address] Care Team Providers Care Hog Handler Name Role Phone Name, Harry NIELSEN Primary Care Provider [phone] Reason for Visit * Reason Onset Date Comments Med Refill 12/18/2023 Encounter Details Date Type Department Care Team ([facility] st Contact Info) Description 12/18/2023 Telephone [facility] MEDICINE 230 [place], [place] [phone] Name, MD Harry 230 [place] [address] Med Refill Social History Tobacco Use Types [...] 1 MG tablet To be sent to: [facility] documented in this encounter Plan of Treatment Upcoming Encounters Date Type Department Care Team (Late st Contact Info) Description 09/02/2024 2:00 PM EDT Office Visit [facility] MEDICINE [address] [place] [address] Name, MD Harry [address] [place] [address] 09/29/2024 2:00 PM EDT Clinical Support [address] [address] Cinda Moura, JOHN documented as of this encounter Visit Diagnoses Not on filedocumented in this encounter Additional Health Concerns Assessment Noted Time PHQ-9 Depression Total Score: 4 07/16/19 24 9:39 AM EDT documented as of this encounter Care Teams Hog Handler Relationship Specialty Start Date End Date Name, MD Harry [address] [place] [address] PCP - General Family Medicine 08/03/15 documented as of this encounter
--- OUTSIDE RECORDS SUMMARY | 2024-08-12 14:34 | XMS_ITS | Encounter Summary ---
Author Organization [employer] Address 75 [facility] 7 [place] [address] Care Team Providers Care Director Of Women'S Services Name Role Phone Name, Harry NIELSEN Primary Care Provider [phone] Reason for Visit * Reason Onset Date Comments Labs Only 08/12/2024 I called Ruddy valentin to let him know that he has pending labs sent from Dr. Hinds and also that the doctor had sent a referral to urology. Patient confirmed and stated he will come in tomorrow for his lab work and also stated that he has an appointment scheduled with urology. Encounter Details Date Type Department Care Team (Late st Contact Info) Description 08/12/2024 Telephone [facility] 230 [place] [address] Marcel [place] MD 230 [place], [place] [phone] Labs Only (I called Ruddy today to let him know that he has pending labs sent from Dr. Hinds and also that the doctor had sent a referral to urology. Patient confirmed and stated he will come in tomorrow for his lab work and also stated that he has an appointment scheduled with urology.) Social History Tobacco Use Types Packs/Day Years [...] encounter Miscellaneous Notes * Telephone Encounter - Manuel Najera MA - 08/12/2024 8:43 AM EDT I called Ruddy today to let him know that he has pending labs sent from Dr. Hinds and also that the doctor had sent a referral to urology. Patient confirmed and stated he will come in tomorrow for his lab work and also stated that he has an appointment scheduled with urology. documented in this encounter Plan of Treatment Upcoming Encounters Date Type Department Care Team (Late st Contact Info) Description 09/02/2024 2:00 PM EDT Office Visit [address] [address] Name, [place] [address] 09/29/2024 2:00 PM EDT Clinical Support [address] [address] Cinda Moura RN documented as of this encounter Visit Diagnoses Not on filedocumented in this encounter Additional Health Concerns Assessment Noted Time PHQ-9 Depression Total Score: 23 024 9:52 AM EDT documented as of this encounter Care Teams Director Of Women'S Services Relationship Specialty Start Date End Date Name, MD Harry [facility] [address] PCP - General Family Medicine 08/03/15 documented as of this encounter
--- OUTSIDE RECORDS SUMMARY | 2024-08-12 14:34 | XMS_ITS | Encounter Summary ---
Author Organization [employer] Address [address] [place] [address] 7 [place] [address] Care Team Providers Care City Carrier Name Role Phone Name, Harry NIELSEN Primary Care Provider [phone] Reason for Visit * Reason Onset Date Comments Med Refill 07/22/2024 Encounter Details Date Type Department Care Team (Late st Contact Info) Description 07/22/2024 Refill [facility] MED[facility]INE 230 [place], [place] [phone] Name, MD Harry 230 [place] [address] Lumbago with sciatica, left side Social History [...] Description 09/02/2024 2:00 PM EDT Office Visit [facility] MEDICINE [address] [place] [address] NameHarry MD [address] [place] [address] 09/29/2024 2:00 PM EDT Clinical Support [address] [address] Cinda Moura, JOHN documented as of this encounter Visit Diagnoses Diagnosis Lumbago with sciatica, left side documented in this encounter Additional Health Concerns Assessment Noted Time PHQ-9 Depression Total Score: 23 024 9:52 AM EDT documented as of this encounter Care Teams City Carrier Relationship Specialty Start Date End Date Harry Recio MD [address] [place] [address] PCP - General Family Medicine 08/03/15 documented as of this encounter
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
--- OUTSIDE RECORDS SUMMARY | 2024-08-12 14:34 | XMS_ITS | Encounter Summary ---
Author Organization [employer] Address [address] [place] [address] [place] [address] Care Team Providers Care Fuel [place] Attendant Name Role Phone Name, Harry NIELSEN Primary Care Provider [phone] Reason for Visit * Reason Onset Date Comments Med Refill 06/09/2024 Encounter Details Date Type Department Care Team (Late st Contact Info) Description 06/09/2024 Refill [facility] [address] [place], [place] [phone] Name, MD Harry [address] [place] [address] PTSD (post-traumatic stress disorder) Social History Tobacco [...] the past 12 months, has t he [employer], gas, oil or water company threatened to [...] encounter Miscellaneous Notes * Telephone Encounter - RAIN Lockett - 06/23/2024 3:39 PM EDT PDMP reviewed med refilled 06/17/24 and sold and picked up 06/19/24. * Telephone Encounter - RAIN Lockett - 06/10/2024 12:38 PM EST Ok, thank you. * Telephone Encounter - RAIN Lockett - 06/09/2024 6:33 PM EST avelina Flores needs a follow up appointment his last visit was 03/25/24. I need to see him before prescribing Clonazepam. * Telephone Encounter - Ramirez Marks - 06/09/2024 12:08 PM EST TC from pt requesting medication refill. Medications needing refill : clonazePAM (KlonoPIN) 1 MG tablet To be sent to: [id number] - [place] - [address] [facility] documented in this encounter Plan of Treatment Upcoming Encounters Date Type Department Care Team (Late st Contact Info) Description 09/02/2024 2:00 PM EDT Office Visit [address] [address] Name, MD Harry [address] [place] [address] 09/29/2024 2:00 PM EDT Clinical Support [address] [phone] Cinda Moura RN documented as of this encounter Visit Diagnoses Diagnosis PTSD (post-traumatic stress disorder) Posttraumatic stress disorder documented in this encounter Additional Health Concerns Assessment Noted Time PHQ-9 Depression Total Score: 23 024 9:52 AM EDT documented as of this encounter Care Teams [place] Attendant Relationship Specialty Start Date End Date NameHarry MD [address] [place] [address] PCP - General Family Medicine 08/03/15 documented as of this encounter
--- OUTSIDE RECORDS SUMMARY | 2024-08-12 14:34 | XMS_ITS | Encounter Summary ---
Author Organization [employer] Address [address] [facility] 7 [place] [address] Care Team Providers Care Biochemistry Technologist Name Role Phone Name, Harry NIELSEN Primary Care Provider [phone] Encounter Details Date Type Department Care Team ([facility] st Contact Info) Description 05/04/2023 Abstract [facility] [address] [place], [place] [phone] Name, MD Harry [address] [place] [address] Social History Tobacco Use Types Packs/Day Years [...] Description 09/02/2024 2:00 PM EDT Office Visit [address] [address] Name, MD Harry [address] [place] [address] 09/29/2024 2:00 PM EDT Clinical Support [address] [address] Cinda Moura, JOHN documented as of this encounter Visit Diagnoses Not on filedocumented in this encounter Additional Health Concerns Assessment Noted Time PHQ-9 Depression Total Score: 11 024 11:07 AM EST documented as of this encounter Care Teams Biochemistry Technologist Relationship Specialty Start Date End Date Harry Recio MD [address] [place] [phone] PCP - General Family Medicine 08/03/15 documented as of this encounter
== END 2024-08-12 13:18 | disposition home or self-care (01) ==
LOC: HO.US 13:17
PROVIDERS: PCP Internal Medicine Geriatric Medicine; Visit Provider Internal Medicine
DX: N50.819 Testicular pain, unspecified (principal)
CPT/HCPCS: 76870

== ENCOUNTER → 2024-08-12 13:21 | Outpatient (BNV) | payer MEDICARE, SELFPAY | PROVIDERS: PCP Internal Medicine Geriatric Medicine; Visit Provider Radiology Diagnostic Radiology | DX: N43.3 Hydrocele, unspecified (principal); N50.3 Cyst of epididymis | CPT/HCPCS: 76870; 93976 ==

== ENCOUNTER 2024-09-30 10:51 | Outpatient (REF) | payer MEDICARE, SELFPAY ==
--- OUTSIDE RECORDS SUMMARY | 2024-09-30 12:19 | XMS_ITS | Encounter Summary ---
Author Organization [employer] Address [address] [place] [address] [place] [address] Care Team Providers Care Technical Associate Name Role Phone Name, Harry NIELSEN Primary Care Provider Reason for Visit * Reason Onset Date Comments Med Refill 07/22/2024 Encounter Details Date Type Department Care Team (Late st Contact Info) Description 07/22/2024 Refill [facility] [address] [place], [place] [phone] Name, MD Harry [address] [place] [address] Lumbago with sciatica, left side Social History [...] Care Team (Late st Contact Info) Description 10/27/2024 2:00 PM EDT Clinical Support [facility] [address] [place] [phone] Cinda Moura RN 10/30/2024 2:30 PM EDT Office Visit [facility] [address] [place] [address] Erika Fowler, OD [address] [place] [address] 12/17/2024 3:30 PM EDT Office Visit [facility] [address] [place] [phone] NameHarry MD [address] [place] [phone] documented as of this encounter Visit Diagnoses Diagnosis Lumbago with sciatica, left side documented in this encounter Additional Health Concerns Assessment Noted Time PHQ-9 Depression Total Score: 23 024 9:52 AM EDT documented as of this encounter Care Teams Technical Associate Relationship Specialty Start Date End Date Harry Recio MD [address] [place] [address] PCP - General Family Medicine 08/03/15 documented as of this encounter
[2024-09-30 13:29] LABS: Alanine Aminotransferase 55 U/L (0-40); Albumin Level 4.8 g/dL (3.5-5.0); Alkaline Phosphatase 109 U/L (39-117); Anion Gap 13 (12-20); Aspartate Amino Transferase 46 U/L (5-37); Bilirubin Total 0.5 mg/dL (0.0-1.0); Blood Urea Nitrogen 17 mg/dL (9-16); Calcium 9.2 mg/dL (8.4-10.2); Carbon Dioxide 21 mmol/L (22-29); Chloride 112 mmol/L (96-108); Cholesterol 149 mg/dL (<200); Estimated Glomerular Filt Rate > 60; Glucose Random 118 mg/dL (60-115); HDL Cholesterol 23 mg/dL (>40); LDL Cholesterol Calculated 55 mg/dL (<100); Potassium 3.9 mmol/L (3.3-5.1); Sodium 142 mmol/L (135-145); Total Protein 7.6 g/dL (6.5-8.0); Triglycerides 357 mg/dL (<150)
[2024-09-30 13:45] LABS: Prostate Specific Antigen Scr 0.23 ng/mL (<0.05-4.0)
[2024-09-30 13:47] LABS: ~HepC Num1 0.15 S/CO (0.00-0.79); ~Hepatitis C Antibody Nonreactive (Nonreactive)
== END 2024-09-30 10:52 | disposition home or self-care (01) ==
LOC: HO.HHCL 10:51
PROVIDERS: Internal Medicine; PCP Internal Medicine Geriatric Medicine; Visit Provider Internal Medicine Geriatric Medicine
DX: R31.9 Hematuria, unspecified (principal); E78.00 Pure hypercholesterolemia, unspecified; Z11.59 Encounter for screening for other viral diseases; N50.819 Testicular pain, unspecified
CPT/HCPCS: 36415; 80053; 80061; 84153; 86803

== ENCOUNTER 2024-10-20 10:47 | Outpatient (AMB) | payer MEDICARE, MEDICAID, SELFPAY ==
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
== END 2024-10-20 11:23 | disposition home or self-care (01) ==
PROVIDERS: PCP Internal Medicine Geriatric Medicine; Visit Provider Nurse Practitioner Family
DX: N31.9 Neuromuscular dysfunction of bladder, unspecified (principal)
CPT/HCPCS: 99203

== ENCOUNTER → 2024-10-20 10:47 | Outpatient (BNVA) | payer MEDICARE, SELFPAY | PROVIDERS: PCP Internal Medicine Geriatric Medicine; Visit Provider Nurse Practitioner Family | DX: G83.4 Cauda equina syndrome (principal) | CPT/HCPCS: 51798; 99202 ==

== ENCOUNTER 2024-11-03 13:38 | Outpatient (REF) | payer MEDICARE, MEDICAID, SELFPAY ==
--- OUTSIDE RECORDS SUMMARY | 2024-11-03 14:18 | XMS_ITS | Encounter Summary ---
Author Organization [employer] Address [address] [place] [address] [place] [address] Care Team Providers Care Retail Leasing Agent Name Role Phone Name, Harry NIELSEN Primary Care Provider [phone] Reason for Visit * Reason Onset Date Comments Med Refill 07/22/2024 Encounter Details Date Type Department Care Team (Late st Contact Info) Description 07/22/[address] [facility] MEDICINE [address] [place], [place] [phone] Name, MD Harry [address] [place] [address] Lumbago with sciatica, left side Social History [...] Care Team (Late st Contact Info) Description 12/17/2024 3:30 PM EDT Office Visit [facility] MEDICINE [address] [place] [id number] Name, MD Harry [address] [place] [address] 01/28/2025 2:00 PM EDT Clinical Support [address] [address] Cinda Moura, RN documented as of this encounter Visit Diagnoses Diagnosis Lumbago with sciatica, left side documented in this encounter Additional Health Concerns Assessment Noted Time PHQ-9 Depression Total Score: 23 024 9:52 AM EDT documented as of this encounter Care Teams Retail Leasing Agent Relationship Specialty Start Date End Date NameHarry MD [address] [place] [id number] PCP - General Family Medicine 08/03/15 documented as of this encounter
[2024-11-07 09:44] LABS: Nordiazepam, GCMS Urine NEGATIVE
[2024-11-07 09:45] LABS: Alprazolam, GCMS Urine NEGATIVE; Aminoclonazepam, GCMS Urine 342
[2024-11-07 09:47] LABS: Alphahydroxymidazolam,GCMS Ur NEGATIVE; Alphahydroxytriazolam, GCMS Ur NEGATIVE; Lorazepam GCMS Urine NEGATIVE; Oxazepam, GCMS Urine NEGATIVE; Temazepam, GCMS Urine NEGATIVE
[2024-11-07 09:48] LABS: Flurazepam Metabolite,GCMS Ur NEGATIVE
== END 2024-11-03 13:39 | disposition home or self-care (01) ==
LOC: HO.HHCLNP 13:38
PROVIDERS: Visit Provider Internal Medicine Geriatric Medicine
DX: Z51.81 Encounter for therapeutic drug level monitoring (principal); Z79.899 Other long term (current) drug therapy
CPT/HCPCS: 80346

== ENCOUNTER 2025-01-07 11:19 | Outpatient (REF) | payer MEDICARE, MEDICAID, SELFPAY ==
--- NOTE | ~2025-01-07 | US_ITS ---
CLINICAL HISTORY: G83.4 - FREQUENT URINARY TRACT INFECTIONS --- Additional Notes or Special Instructions: bladder not prepped, R S US Renal Comparison: None provided Findings: Right kidney normal size and echotexture, 12.5 cm length. Midpole renal cyst measuring 4.5 x 4.1 x 4.4 cm with minimal thin septations. This may be further evaluated on follow-up in 6-12 months as indicated. Left kidney normal size and echotexture, 12.6 cm length. Mild pelviectasis. No significant hydronephrosis of either kidney. Normal color Doppler. Urinary bladder not well visualized, per technologist notes, the bladder scan is rescheduled. IMPRESSION: No hydronephrosis. Mildly complex right renal cyst, please see above. This document has been electronically signed by: Eric Rausch MD on 01/07/2025 19:05:58
--- OUTSIDE RECORDS SUMMARY | 2025-01-07 12:58 | XMS_ITS | Encounter Summary ---
Author Organization [employer] Address [address] [place] [address] [place] [address] Care Team Providers Care Top Closer Name Role Phone Name, Harry NIELSEN Primary Care Provider [phone] Reason for Visit * Reason Onset Date Comments Med Refill 12/18/2023 Encounter Details Date Type Department Care Team ([facility] st Contact Info) Description 12/18/2023 Telephone [facility] MEDICINE [address] [place], [place] [phone] Name, MD Harry [address] [place] [address] Med Refill Social History Tobacco Use Types [...] 1 MG tablet To be sent to: [facility] documented in this encounter Plan of Treatment Upcoming Encounters Date Type Department Care Team (Late st Contact Info) Description 01/28/2025 2:00 PM EDT Clinical Support [facility] [address] [place] [address] Cinda Moura, JOHN documented as of this encounter Visit Diagnoses Not on filedocumented in this encounter Additional Health Concerns Assessment Noted Time PHQ-9 Depression Total Score: 4 07/16/19 24 9:39 AM EDT documented as of this encounter Care Teams Top Closer Relationship Specialty Start Date End Date Name, MD Harry [address] [place] [address] PCP - General Family Medicine 08/03/15 documented as of this encounter
--- OUTSIDE RECORDS SUMMARY | 2025-01-07 12:58 | XMS_ITS | Encounter Summary ---
Author Organization [employer] Address [address] [place] [address] 7 [place] [address] Care Team Providers Care Occup Therapist Name Role Phone Name, Harry NIELSEN Primary Care Provider [phone] Reason for Visit * Reason Onset Date Comments Med Refill 10/22/2024 Encounter Details Date Type Department Care Team ([facility] st Contact Info) Description 10/22/2024 Refill [facility] MEDICINE [address] [place], [place] [phone] Name, MD Harry [address] [place] [address] Primary insomnia Social History Tobacco Use Types Packs/Day Years [...] Recorded Patient Health Questionnaire-2 Score 6 01/31/2024 Internet Access Answer Date Recorded Internet Access Q1 Yes 08/25/2024 Internet Access Q2 Not on file 08/25/2024 Sex and Gender Information Value Date Recorded Sex Assigned at Male 02/06/2022 10:29 AM EDT Legal Sex Male 10:29 AM EDT Gender Identity Male 02/06/2022 10:29 AM EDT Sexual Orientation Straight 02/06/2022 10 :29 AM EDT documented as of this encounter Plan of Treatment Upcoming Encounters Date Type Department Care Team (Late st Contact Info) Description 01/28/2025 2:00 PM EDT Clinical Support [facility] MEDICINE [address] [place] [address] Cinda Moura, JOHN documented as of this encounter Visit Diagnoses Diagnosis Primary insomnia Persistent disorder of initiating or maintaining sleep documented in this encounter Additional Health Concerns Assessment Noted Time PHQ-9 Depression Total Score: 23 024 9:52 AM EDT documented as of this encounter Care Teams Occup Therapist Relationship Specialty Start Date End Date Name, MD Harry [address] [place] [address] PCP - General Family Medicine 08/03/15 documented as of this encounter
--- OUTSIDE RECORDS SUMMARY | 2025-01-07 12:58 | XMS_ITS | Encounter Summary ---
Author Organization [employer] Address [address] [place] [address] Care Team Providers Care College Or [employer] Faculty Member Name Role Phone Name, Harry NIELSEN Primary Care Provider [phone] Reason for Visit * Reason Onset Date Comments Med Refill 06/09/2024 Encounter Details Date Type Department Care Team ([facility] st Contact Info) Description 06/09/2024 Refill [facility] MEDICINE [address] [place], [place] [phone] Name, MD Harry [address] [place] [address] PTSD (post-traumatic stress disorder) Social History Tobacco [...] 1 MG tablet To be sent to: [id number] - [place] - [address] [facility] documented in this encounter Plan of Treatment Upcoming Encounters Date Type Department Care Team (Late st Contact Info) Description 01/28/2025 2:00 PM EDT Clinical Support [facility] MEDICINE [address] [place] [address] Cinda Moura RN documented as of this encounter Visit Diagnoses Diagnosis PTSD (post-traumatic stress disorder) Posttraumatic stress disorder documented in this encounter Additional Health Concerns Assessment Noted Time PHQ-9 Depression Total Score: 23 024 9:52 AM EDT documented as of this encounter Care Teams College Or University Faculty Member Relationship Specialty Start Date End Date Name, MD Harry [address] [place] [address] PCP - General Family Medicine 08/03/15 documented as of this encounter
--- OUTSIDE RECORDS SUMMARY | 2025-01-07 12:58 | XMS_ITS | Encounter Summary ---
Author Organization [employer] Address [address] [place] [address] [place] [address] Care Team Providers Care Zoning Administrator Name Role Phone Name, Harry NIELSEN Primary Care Provider [phone] Reason for Visit * Reason Onset Date Comments Med Refill 07/22/2024 Encounter Details Date Type Department Care Team (Late st Contact Info) Description 07/22/2024 Refill [facility] MEDICINE [address] [place], [place] [phone] Name, MD Harry [address] [place] [address] Lumbago with sciatica, left side Social History [...] Description 01/28/2025 2:00 PM EDT Clinical Support [facility] MEDICINE [address] [place] [address] Cinda Moura RN documented as of this encounter Visit Diagnoses Diagnosis Lumbago with sciatica, left side documented in this encounter Additional Health Concerns Assessment Noted Time PHQ-9 Depression Total Score: 23 024 9:52 AM EDT documented as of this encounter Care Teams Zoning Administrator Relationship Specialty Start Date End Date Name, MD Harry [address] [place] [address] PCP - General Family Medicine 08/03/15 documented as of this encounter
--- OUTSIDE RECORDS SUMMARY | 2025-01-07 12:59 | XMS_ITS | Encounter Summary ---
Author Organization [employer] Address [address] [place] [address] 7 [place] [address] Care Team Providers Care Printing Bindery Assistant Name Role Phone Name, Harry NIELSEN Primary Care Provider [phone] Reason for Visit * Reason Comments Med Refill Encounter Details Date Type Department Care Team ([facility] Contact Info) Description 11/26/2024 Refill [facility] MEDICINE [address] [place], [place] [phone] Name, MD Harry [address] [place] [address] Primary insomnia Social History Tobacco Use Types [...] Answer Date Recorded Patient Health Questionnaire-9 Score 14 11/14/2024 Patient Health Questionnaire-9 Score 14 11/14/2024 Last PHQ-9: Questionnaire Data Not on file 0 11/14/2024 Housing Stability Answer Date Recorded What is [...] Date Recorded Patient Health Questionnaire-2 Score 6 11/14/2024 Internet Access Answer Date Recorded Internet Access [...] Description 01/28/2025 2:00 PM EDT Clinical Support [facility] MEDICINE [address] [place] [address] Cinda Moura RN documented as of this encounter Visit Diagnoses Diagnosis Primary insomnia Persistent disorder of initiating or maintaining sleep documented in this encounter Additional Health Concerns Assessment Noted Time PHQ-9 Depression Total Score: 14 025 1:44 PM EDT documented as of this encounter Care Teams Printing Bindery Assistant Relationship Specialty Start Date End Date Name, MD Harry [address] [place] [address] PCP - General Family Medicine 08/03/15 documented as of this encounter
--- OUTSIDE RECORDS SUMMARY | 2025-01-07 12:59 | XMS_ITS | Encounter Summary ---
Author Organization [employer] Address [address] [place] [address] [place] [address] Care Team Providers Care Registered Nurse Step Down Name Role Phone Name, Harry NIELSEN Primary Care Provider [phone] Reason for Visit * Reason Onset Date Comments Med Refill 10/23/2024 Encounter Details Date Type Department Care Team ([facility] st Contact Info) Description 10/23/2024 Refill [facility] MEDICINE [address] [place], [place] [phone] Name, MD Harry [address] [place] [address] Social History Tobacco Use Types Packs/Day Years [...] Description 01/28/2025 2:00 PM EDT Clinical Support [facility] MEDICINE [address] [place] [address] Cinda Moura RN documented as of this encounter Visit Diagnoses Not on filedocumented in this encounter Additional Health Concerns Assessment Noted Time PHQ-9 Depression Total Score: 23 024 9:52 AM EDT documented as of this encounter Care Teams Registered Nurse Step Down Relationship Specialty Start Date End Date Name, MD Harry [address] [place] [address] PCP - General Family Medicine 08/03/15 documented as of this encounter
--- OUTSIDE RECORDS SUMMARY | 2025-01-07 12:59 | XMS_ITS | Encounter Summary ---
Author Organization [employer] Address [address] [place] [address] 7 [place] [address] Care Team Providers Care Bitumastic Applier Name Role Phone Name, Harry NILESEN Primary Care Provider Encounter Details Date Type Department Care Team ([facility] st Contact Info) Description 05/04/2023 Abstract [facility] MEDICINE [address] [place], [place] [phone] Name, MD Harry [address] [place] [address] Social History Tobacco Use Types Packs/Day Years [...] Description 01/28/2025 2:00 PM EDT Clinical Support [facility] MEDICINE [address] [place] [address] Cinda Moura RN documented as of this encounter Visit Diagnoses Not on filedocumented in this encounter Additional Health Concerns Assessment Noted Time PHQ-9 Depression Total Score: 11 024 11:07 AM EST documented as of this encounter Care Teams Bitumastic Applier Relationship Specialty Start Date End Date Name, MD Harry [address] [place] [address] PCP - General Family Medicine 08/03/15 documented as of this encounter
--- OUTSIDE RECORDS SUMMARY | 2025-01-07 12:59 | XMS_ITS | Clinical Summary ---
Author Organization [employer] Address [address] [place] [address] 7 [place] [address] Care Team Providers Care Insurance Rater Name Role Phone Name, Harry NIELSEN Primary Care Provider [phone] Allergies Active Allergy Reactions Criticality Noted Date [...] MORNING 90 tablet 1 06/04/19 25 Active hydrOXYzine HCl (Atarax) 25 MG tabletIndicati ons:PTSD (post-traumati c stress disorder) Take 1 tablet (25 mg) by mouth if needed in the morning and at bedtime for anxiety. 60 tablet 1 08/27/19 25 Active sertraline (Zoloft) 100 MG tabletIndicati ons:PTSD (post-traumati c stress disorder) Take 2 tablets (200 mg) by mouth in the morning. 60 tablet 1 11/15/19 25 025 Active melatonin 5 MG tabletIndicati ons:Insomnia, unspecified type One table at bedtime 30 tablet 3 12/18/19 25 Active oxyCODONE-acet aminophen (Percocet) 7.5-325 MG tabletIndicati ons:Lumbago with sciatica, left side Take 1 tablet by mouth every 6 (six) hours if needed for severe pain for up to 28 days. 112 tablet 12/20/19 25 025 Active clonazePAM (KlonoPIN) 1 MG tabletIndicati ons:PTSD (post-traumati c stress disorder) Take 1 tablet (1 mg) by mouth if needed in the morning and at bedtime for anxiety for up to 28 days. Do not start before December 23, 2024. 56 tablet 12/24/19 25 025 Active amitriptyline (Elavil) 50 MG tabletIndicati ons:Primary insomnia TAKE 1 TABLET BY MOUTH AT BEDTIME 30 tablet 1 12/25/19 25 Active amitriptyline (Elavil) 50 MG tabletIndicati ons:Primary insomnia TAKE 1 TABLET BY MOUTH AT BEDTIME 30 tablet 1 10/23/19 25 025 Discontinued(R eorder (will not trigger notification to Pharmacy)) oxyCODONE-acet aminophen (Percocet) 7.5-325 MG tabletIndicati ons:Lumbago with sciatica, left side Take 1 tablet by mouth every 6 (six) hours if needed for severe pain for up to 28 days. 112 tablet 11/19/19 25 025 Discontinued(R eorder (will not trigger notification to Pharmacy)) clonazePAM (KlonoPIN) 1 MG tabletIndicati ons:PTSD (post-traumati c stress disorder) Take 1 tablet (1 mg) by mouth if needed in the morning and at bedtime for anxiety (Pt. instructed to take as needed) for up to 28 days. Do not start before November 22, 2024. 56 tablet 11/23/19 25 025 Discontinued(R eorder (will not trigger notification to Pharmacy)) Active Problems Problem Noted Date Diagnosed Date Long-term current use of opiate analgesic 2024 Long-term current use of benzodiazepine 09/30/19 25 Blood in urine 07/29/2024 Assessment & Plan [...] recurrent major depressive disorder, without psychotic features ([facility]) - Primary Patient ready to address current needs Yes Strengths include strong family support PLAN: 1. Follow up with [facility]: Not recommended for follow-up 2. Patient goal [...] for continued medication management. He should call [facility] with any questions or concerns. I have [...] restarted several (but not all). Recommend utilizing [facility] pharmacy with [facility], and pt is agreeable. [...] 2 months. He agrees with the plan. Fecal incontinence not due to organic disease Urinary incontinence 08/16/2022 Moderate major depression ([facility]) 08/16/2022 Severe episode of recurrent major depressive disorder, without psychotic features ([facility]) 09/26/2017 Seasonal allergic rhinitis 09/26/2017 Occult blood in stools 02/05/2017 Insomnia 09/10/2015 Chronic low back pain 08/03/2015 Neurogenic bladder 08/03/2015 Cauda equina syndrome ([facility]) 08/03/2015 Resolved Problems Problem Noted Date Diagnosed Date Resolved Date Testicular discomfort 07/29/20242024 Assessment & Plan (07/29/2024 2:52 PM EDT): [...] previous US of the scrotum done at [facility] that showed hydrocele and non specific finding on the right testicle but the report does not mention a malignancy in the differential. Today he does not have any fever or suprapubic pressure, no foul smelling urine. Pt never had the US ordered by PCP back in 10/09/2023 Plan: Testicular US Seasonal allergic reaction 08/16/2022 0 12/18/2024 Urinary tract infection 08/16/202204/10 Encounters * This document contains information received from the source organization and may not represent a complete record from that organization. Date Type Department Care Team Description 12/24/2024 Telephone [facility] [address] [place] [phone] Name, MD Harry Call back request 12/23/2024 Refill [facility] [address] [place] [address] Harry Recio MD Primary insomnia 12/19/2024 Refill [facility] [address] [place] [address] Harry Recio MD Lumbago with sciatica, left side; PTSD (post-traumatic stress disorder) 12/17/2024 3:30 PM EDT Office Visit [facility] [address] [place] [address] Harry Recio MD Severe episode of recurrent major depressive disorder, without psychotic features (CMS/HCC) (Primary Dx); JA (generalized anxiety disorder); Insomnia, unspecified type 12/17/2024 Travel 12/15/2024 Telephone [facility] [address] [place] [address] Harry Recio MD Chart Prep 11/26/2024 Refill [facility] [address] [place] [address] Harry Recio MD Primary insomnia 11/21/2024 Refill [facility] [address] [place] [address] Harry Recio MD PTSD (post-traumatic stress disorder) 11/18/2024 Refill [facility] [address] [place] [address] Harry Recio MD Lumbago with sciatica, left side 11/13/2024 Refill [facility] [address] [place] [address] Harry Recio MD PTSD (post-traumatic stress disorder) 11/13/2024 Refill [facility] [address] [place] [place] [address] Harry Recio MD PTSD (post-traumatic stress disorder) 11/11/2024 Telephone [facility] [address] [place] [place] [address] Cinda Moura, RN Clonazepam, appt 11/03/2024 9:30 AM EDT Clinical Support [facility] [address] [place] [place] [address] Cinda Moura, RN Long-term current use of benzodiazepine (Primary Dx); Long-term current use of opiate analgesic 11/03/2024 Telephone [facility] [address] [place] [address] Cinda Moura RN BPI & JA scoring; UTOX Abnormal; Forgot Clonazepam 11/03/2024 Refill [facility] [address] [place] [address] Cinda Moura RN Lumbago with sciatica, left side; PTSD (post-traumatic stress disorder) 11/03/2024 Travel 11/02/2024 Travel 10/30/2024 Travel 10/29/2024 Refill [facility] [address] [place] [address] NameHarry MD PTSD (post-traumatic stress disorder) 10/27/2024 Telephone [facility] [address] [place] [address] Cinda Moura RN Pt was [employer] for [employer] appt today; Call Back Request 10/24/2024 Telephone [facility] [address] [place] [address] Harry Recio MD Durable Medical Equipment 10/23/2024 Refill [facility] [address] [place] [address] Harry Recio MD 10/22/2024 Refill [facility] [address] [place] [address] Harry Recio MD Lumbago with sciatica, left side 10/22/2024 Refill [facility] [address] [place] [address] NameHarry MD PTSD (post-traumatic stress disorder) 10/22/2024 Refill [facility] [address] [place] [address] NameHarry MD Primary insomnia 10/22/2024 Refill [facility] [address] [place] [address] Harry Recio MD Primary insomnia 10/22/2024 Refill [facility] [address] [place] [address] Harry Recio MD Lumbago with sciatica, left side; PTSD (post-traumatic stress disorder) from Last 3 Months Immunizations Immunization Administration Dates Next Due DT (pediatric) 07/26/2006 [...] Sign Reading Time Taken Comments Blood Pressure 126/82 12/17/2024 3:37 PM EDT Pulse 92 12/17/2024 3:37 PM EDT Temperature 36.1 C (96.9 F) 12/17/2024 3:37 PM EDT Respiratory Rate 12 12/17/2024 3:37 PM EDT Oxygen Saturation 97% 12/17/2024 3:37 PM EDT Inhaled Oxygen Concentration - - Weight 87.2 kg (192 lb 3.2 oz) 12/17/2024 3:37 P M EDT Height 177.8 cm (5' 10 ) 12/17/2024 3:37 PM EDT Body Mass Index 27.58 12/17/2024 3:37 PM EDT Plan of Treatment Upcoming Encounters Date Type Department Care Team (Late st Contact Info) Description 01/28/2025 2:00 PM EDT Clinical Support [address] [address] Cinda Moura, RN Health Maintenance Due Date Last Done Comments CT Colonography 1966 FIT DNA/Cologuard 1966 FIT 1966 FOBT 1966 HIV Screening 1966 Sigmoidoscopy 1966 Hepatitis B Vaccines (2 of 3 - 19+ 3-dose series) 08/23/2006 07/26/2006 Zoster Vaccines (1 of 2) 02/16/2016 COVID-19 Vaccine (4 - 2024-2 6 season) 2024 03/07/2021, 07/09/2020, 06/18/2020 Influenza Vaccine (#1) 2024 3, 04/23/2019 Depression Monitoring 05/17/2025 11/14/2024 , 11/14/2024 SDOH Screening 08/25/2025 08/25/2024 Disability Screening 09/02/2025 09/02/2024 Alcohol/Substance Use Screening 12/17/2025 12/17/2024 Tobacco Screening 12/17/2025 12/17/2024 Colonoscopy 01/23/2029 01/24/2024, 01/24/2024 Colorectal Cancer Screening 01/23/2029 Lipid Panel 09/30/2029 09/30/2024, 08/17/2021, 08/18/2020 DTaP/Tdap/Td Vaccines (3 - T d or Tdap) 08/30/2033 08/31/2023, 09/25/2011, 07/26/2006 RSV Patients and Patients Aged 60 years or older (1 - 1-dose 75+ series) 2041 Pneumococcal Vaccine: 50+ Years Completed 03/27/2024, 03/27/2018 Hepatitis C Screening Completed 09/30/2024 HIB Vaccines Aged Out No longer eligi [...] patient's age to complete this topic Meningococcal B Vaccine Aged Out No l onger eligible based on patient's age to complete [...] Name Priority Date/Time Associated Diagnosis Comments POCT CAROL-14 URINE DRUG SCREEN Routine 11/03/2024 9:53 AM EDT Long-term current use of benzodiazepine Long-term current use of opiate analgesic DRUG MONITORING, BENZODIAZEPINES, QUANTITATIVE, URINE Routine 11/03/2024 9:30 AM EDT Long-term current use of benzodiazepine HEPATITIS C AB W/REFL TO HCV RNA, QN, PCR Routine 09/30/2024 10:57 AM EDT Need for hepatitis C screening test LIPID PANEL, STANDARD Routine 09/30/2024 10:57 AM EDT High cholesterol HM COLONOSCOPY Routine 01/24/2024 from Last 3 Months or Most Recently Relevant to Health Maintenance Results * (ABNORMAL) POCT CAROL-14 Urine Drug Screen (11/03/2024 9:53 AM EDT) THC Positive Negative Cocaine Screen, Urine Negative Negative Opiate Screen, Urine Negative Negative Methamphetamine Screen Urine Negative Negative Amphetamine Screen, Urine Negative Negative Benzodiazepines Screen, Urine Negative(A) Negative Barbiturate Screen, Urine Negative Negative Methadone Screen, Urine Negative Negative Buprenophine Screen, Urine Negative Negative TCA, Urine Positive Negative MDMA Urine Negative Negative ng/mL Oxycodone Screen, Urine Positive Negative Phencyclidine (PCP), Urine Negative Negative Propoxyphene, Urine Negative Negative Fentanyl, Urine Negative Negative Urine Urine specimen obtained by clean catch procedure / Unknown 11/03/2024 9:53 AM EDT Cinda Pastrana RN - 11/03/2024 9:53 AM EDT UTOX cup Lot#[id number] Exp. 01/13/26 Internal Pass Control us Harry Name MD POINT OF CARE TEST ENTER/EDIT OR DERABLES Final Result * Drug Monitoring, Benzodiazepines, Quantitative, Urine (11/03/2024 9:30 AM EDT) Nordiazepam, GCMS Urine NEGATIVE [facility] Comment:Gbkkze32 ng/mL Oxazepam, GCMS Urine NEGATIVE [facility] Comment:Ehswsi10 ng/mL Lorazepam GCMS Urine NEGATIVE [facility] Comment:Trjazo43 ng/mL Alprazolam, GCMS Urine NEGATIVE [facility] Comment:VGERPF46 ng/mL Alphahydroxytriazolam, GCMS Ur NEGATIVE [facility] Comment:Hwqeyw47 ng/mL Temazepam, GCMS Urine NEGATIVE [facility] Comment:Zxqhsn44 ng/mL Alphahydroxymidazolam,GC MS Ur NEGATIVE [facility] Comment:Kcpjwr67 ng/mL Aminoclonazepam, GCMS Urine 342 [facility] Comment:MJTJUY35 ng/mL Flurazepam Metabolite,GCMS Ur NEGATIVE [facility] Comment:Pynazt71 ng/mL Benzodiazepines Comments SEE NOTE [facility] Comment:NOTES AND COMMENTSTh is drug testing is for medical treatment only. Analysiswas performed as non-forensic testing and these resultsshould be used only by healthcare providers torender diagnosis or treatment, or to monitor progress ofmedical conditions.Benzodiazepines Notes:Aminoclonazepam detected is consistent with the use of thedrug Clonazepam.LDT Notes:Confirmation tests were developed and their analyticalperformance characteristics have been determined by [employer]. It has not been cleared orapproved by the FDA. This assay has been validated pursuantto the CLIA regulations and is used for clinical purposes.Healthcare Providers needing Interpretation assistance,please contact us at [phone] ( ) M-F,8am to 10pm ESTPERFORMING SITE:[facility], [address] [place] [phone] Vest Maker: SALLY LIGHT MD, CLIA:[id number] Urine (Urine, Random) 11/03/2024 9:30 AM EDT 11/03/2024 1:38 PM EDT us Harry Recio MD LAB URINE ORDERABLES Final Resul t [facility] [address] [place] [phone] * Hepatitis C Antibody with Reflex to HCV, RNA, Quantitative, Real-Time PCR (09/30/2024 10:57 AM EDT) Hepatitis C Antibody Nonreactive Nonreactive [facility] Comment:Antibodies to HCV no t detected; does not exclude early acuteHCV infection. Blood Venous blood specimen / Unknown 09/30/2024 10:57 AM EDT 09/30/2024 12:56 PM EDT us Harry Recio MD LAB BLOOD ORDERABLES Final Resul t Performing Organization Address [facility] Co de Phone Number [facility] [address] [place] [address] [phone] * (ABNORMAL) Lipid Panel, Standard (09/30/2024 10:57 AM EDT) Triglycerides 357(H) <150 mg/dL [facility] Comment:Desirable Triglyceri de: less than 150 mg/dLBorderline High Triglyceride 150-199 mg/dLHigh Triglyceride: 200-499 mg/dLVery High Triglyceride: greater than or equal to 5OO mg/dL Cholesterol 149 <200 mg/dL [facility] Comment:Desirable Cholestero l: less than 200 mg/dLBorderline High Cholesterol: 200-239 mg/dLHigh Cholesterol: greater than 239 mg/dL LDL Cholesterol Calculated 55 <100 mg/dL [facility] Comment:Desirable LDL: less than 100 mg/dLNear Optimal/Above Optimal LDL: 110- 129 mg/dLBorderline High LDL: 130-159 mg/dLHigh LDL: 160-189 mg/dLVery High LDL: greater than or equal to 190 mg/dL HDL Cholesterol 23(L) >40 mg/dL [facility] Comment:Desirable HDL: great er than 40 mg/dL Note: This HDL assay may give artificially low results in patients with liver disease. Blood Venous blood specimen / Unknown 09/30/2024 10:57 AM EDT 09/30/2024 12:56 PM EDT us Harry Recio MD LAB BLOOD ORDERABLES Final Resul t Performing Organization Address [facility] Co de Phone Number [facility] [address] [place] [address] [phone] * (ABNORMAL) Hm Colonoscopy (01/24/2024) Colonoscopy Abnormal(A ) Normal 01/24/2024 Harry Recio MD HEALTH MAINTENANCE Final Result from Last 3 Months or Most Recently Relevant to Health Maintenance Insurance STANDARD [employer] MEDICARE REPLACEMENT Care Teams Insurance Rater Relationship Specialty Start Date End Date Name, MD Harry [address] [place] [phone] PCP - General Family Medicine 08/03/15
--- OUTSIDE RECORDS SUMMARY | 2025-01-07 12:59 | XMS_ITS | Encounter Summary ---
Author Organization [employer] Address [address] [place] [address] [place] [address] Care Team Providers Care Boom Supervisor Name Role Phone Name, Harry NIELSEN Primary Care Provider [phone] Reason for Visit * Reason Onset Date Comments Med Refill 08/19/2024 Encounter Details Date Type Department Care Team (Late st Contact Info) Description 08/19/2024 Refill [facility] [address] [place], [place] [phone] Name, MD Harry [address] [place] [address] Lumbago with sciatica, left side Social History [...] your housing situation today? I have warren urdd 08/31/[address] you li [...] Description 01/28/2025 2:00 PM EDT Clinical Support [facility] [address] [place] [address] Cinda Moura RN documented as of this encounter Visit Diagnoses Diagnosis Lumbago with sciatica, left side documented in this encounter Additional Health Concerns Assessment Noted Time PHQ-9 Depression Total Score: 23 024 9:52 AM EDT documented as of this encounter Care Teams Boom Supervisor Relationship Specialty Start Date End Date Name, MD Harry [address] [place] [address] PCP - General Family Medicine 08/03/15 documented as of this encounter
--- OUTSIDE RECORDS SUMMARY | 2025-01-07 12:59 | XMS_ITS | Encounter Summary ---
Author Organization [employer] Address [address] [place] [address] Care Team Providers Care Slot Floor Attendant Name Role Phone Name, Harry NIELSEN Primary Care Provider [phone] Reason for Visit * Reason Onset Date Comments Med Refill 10/22/2024 Encounter Details Date Type Department Care Team ([facility] st Contact Info) Description 10/22/2024 Refill [facility] [address] [place], [place] [phone] Name, MD Harry [address] [place] [address] PTSD (post-traumatic stress disorder) Social History Tobacco [...] Description 01/28/2025 2:00 PM EDT Clinical Support [facility] [address] [place] [address] Cinda Moura RN documented as of this encounter Visit Diagnoses Diagnosis PTSD (post-traumatic stress disorder) Posttraumatic stress disorder documented in this encounter Additional Health Concerns Assessment Noted Time PHQ-9 Depression Total Score: 23 024 9:52 AM EDT documented as of this encounter Care Teams Slot Floor Attendant Relationship Specialty Start Date End Date Name, MD Harry [address] [place] [address] PCP - General Family Medicine 08/03/15 documented as of this encounter
--- OUTSIDE RECORDS SUMMARY | 2025-01-07 12:59 | XMS_ITS | Encounter Summary ---
Author Organization [employer] Address [address] [place] [address] 7 [place] [address] Care Team Providers Care Personalization Specialist Name Role Phone Name, Harry NIELSEN Primary Care Provider [phone] Reason for Visit * Reason Onset Date Comments Med Refill 03/30/2023 Encounter Details Date Type Department Care Team ([facility] st Contact Info) Description 03/30/2023 Telephone [facility] [address] [place], [place] [phone] Name, MD Harry [address] [place] [address] Med Refill Social History Tobacco Use Types [...] housing situation today? I have warrenmarcelina rudd 02/05/[address] you [...] 10:47 AM EST Medication was sent to [facility] #[id number] on 02/06/23 #90 to soon for refill. * Telephone Encounter - Rosie Branham - 03/30/2023 10:41 AM EST TC from pt requesting medication refill. Medications needing refill : amitriptyline (Elavil) 50 MG tablet To be sent to: [id number] [facility] documented in this encounter Plan of Treatment Upcoming Encounters Date Type Department Care Team ([facility] st Contact Info) Description 01/28/2025 2:00 PM EDT Clinical Support [facility] [address] [place] [address] Cinda Moura RN documented as of this encounter Visit Diagnoses Not on filedocumented in this encounter Additional Health Concerns Assessment Noted Time PHQ-9 Depression Total Score: 8 02/07/20 10:45 AM EDT documented as of this encounter Care Teams Personalization Specialist Relationship Specialty Start Date End Date Name, MD Harry [address] [place] [address] PCP - General Family Medicine 08/03/15 documented as of this encounter
--- OUTSIDE RECORDS SUMMARY | 2025-01-07 12:59 | XMS_ITS | Encounter Summary ---
Author Organization [employer] Address [address] [place] [address] Care Team Providers Care Septic Tank Service Technician Name Role Phone Name, Harry NIELSEN Primary Care Provider [phone] Reason for Visit * Reason Onset Date Comments Call back request 12/24/2024 Encounter Details Date Type Department Care Team ([facility] st Contact Info) Description 12/24/2024 Telephone [facility] [address] [place], [place] [phone] Name, MD Harry [address] [place] [address] Call back request Social History Tobacco Use Types Packs/Day Years [...] encounter Miscellaneous Notes * Telephone Encounter - Kimberly Chamorro RN - 01/05/2025 12:11 PM EDT No consent listed in chart to speak to [employer]. Consulted with manager intranet who states pt would need to cometo medical records to sign a release. T/C to pt. Advised of need to sign release if he would like us to communicate with [employer]. Pt agrees to come in to sign consent tomorrow. * Telephone Encounter - Katty Preston - 12/24/2024 12:57 PM EDT Tc from [employer] requesting a call back from PCP in regard of housing complained. [facility] has paper work Contact [employer] at [phone] [email or web address] documented in this encounter Plan of Treatment Upcoming Encounters Date Type Department Care Team (Late st Contact Info) Description 01/28/2025 2:00 PM EDT Clinical Support [facility] [address] [place] [address] Cinda Moura, JOHN documented as of this encounter Visit Diagnoses Not on filedocumented in this encounter Additional Health Concerns Assessment Noted Time PHQ-9 Depression Total Score: 14 025 1:44 PM EDT documented as of this encounter Care Teams Septic Tank Service Technician Relationship Specialty Start Date End Date Name, MD Harry [address] [place] [address] PCP - General Family Medicine 08/03/15 documented as of this encounter
--- OUTSIDE RECORDS SUMMARY | 2025-01-07 12:59 | XMS_ITS | Encounter Summary ---
Author Organization [employer] Address [address] [place] [address] [place] [address] Care Team Providers Care Education Program Specialist Name Role Phone Name, Harry NIELSEN Primary Care Provider [phone] Reason for Visit * Reason Onset Date Comments Med Refill 10/22/2024 Encounter Details Date Type Department Care Team (Late st Contact Info) Description 10/22/2024 Refill [facility] [address] [place], [place] [phone] Name, MD Harry [address] [place] [address] Lumbago with sciatica, left side Social History [...] Description 01/28/2025 2:00 PM EDT Clinical Support [facility] [address] [place] [address] Cinda Moura, JOHN documented as of this encounter Visit Diagnoses Diagnosis Lumbago with sciatica, left side documented in this encounter Additional Health Concerns Assessment Noted Time PHQ-9 Depression Total Score: 23 024 9:52 AM EDT documented as of this encounter Care Teams Education Program Specialist Relationship Specialty Start Date End Date Name, MD Harry [address] [place] [address] PCP - General Family Medicine 08/03/15 documented as of this encounter
--- OUTSIDE RECORDS SUMMARY | 2025-01-07 12:59 | XMS_ITS | Encounter Summary ---
Author Organization [employer] Address [address] [place] [address] 7 [place] [address] Care Team Providers Care Stoner Hand Name Role Phone Name, Harry NIELSEN Primary Care Provider [phone] Reason for Visit * Reason Comments Med Refill Encounter Details Date Type Department Care Team ([facility] st Contact Info) Description 05/09/2023 Refill [facility] MEDICINE [address] [place], [place] [phone] Carlos Gr FNP PTSD (post-traumatic stress disorder) [...] Description 01/28/2025 2:00 PM EDT Clinical Support [facility] MEDICINE [address] [place] [address] Cinda Moura RN documented as of this encounter Visit Diagnoses Diagnosis PTSD (post-traumatic stress disorder) Posttraumatic stress disorder documented in this encounter Additional Health Concerns Assessment Noted Time PHQ-9 Depression Total Score: 11 024 11:07 AM EST documented as of this encounter Care Teams Stoner Hand Relationship Specialty Start Date End Date Name, MD Harry [address] [place] [address] PCP - General Family Medicine 08/03/15 documented as of this encounter
== END 2025-01-07 11:20 | disposition home or self-care (01) ==
LOC: HO.US 11:19
PROVIDERS: PCP Internal Medicine Geriatric Medicine; Visit Provider Nurse Practitioner Family
DX: G83.4 Cauda equina syndrome (principal); N39.0 Urinary tract infection, site not specified
CPT/HCPCS: 76775

== ENCOUNTER → 2025-01-07 11:23 | Outpatient (BNV) | payer MEDICARE, MEDICAID, SELFPAY | PROVIDERS: PCP Internal Medicine Geriatric Medicine; Visit Provider Radiology Diagnostic Radiology | DX: N28.1 Cyst of kidney, acquired (principal); N39.0 Urinary tract infection, site not specified | CPT/HCPCS: 76775 ==

== ENCOUNTER 2025-02-09 07:58 | Emergency (ER) | payer MEDICARE, MEDICAID, SELFPAY ==
[2025-02-09 08:01] VITALS: BP 138/93; PULSE 106; RESP 18; TEMP 36.1; O2SAT 97; BMI 27.9
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
--- OUTSIDE RECORDS SUMMARY | 2025-02-09 08:42 | XMS_ITS | Encounter Summary ---
Author Organization [employer] Address [address] [place] [address] 7 [place] [address] Care Team Providers Care Residential Energy Auditor Name Role Phone Name, Harry NIELSEN Primary Care Provider [phone] Reason for Visit * Reason Comments Med Refill Encounter Details Date Type Department Care Team ([facility] Contact Info) Description 01/20/2025 Refill [facility] MEDICINE [address] [place], [place] [phone] Name, MD Harry [address] [place] [address] PTSD (post-traumatic stress disorder) Social History Tobacco [...] Care Team (Late st Contact Info) Description 04/30/2025 10:00 AM EST Clinical Support [facility] MEDICINE [address] [place] [address] Cinda Moura RN documented as of this encounter Visit Diagnoses Diagnosis PTSD (post-traumatic stress disorder) Posttraumatic stress disorder documented in this encounter Additional Health Concerns Assessment Noted Time PHQ-9 Depression Total Score: 14 025 1:44 PM EDT documented as of this encounter Care Teams Residential Energy Auditor Relationship Specialty Start Date End Date Name, MD Harry [address] [place] [address] PCP - General Family Medicine 08/03/15 documented as of this encounter
--- OUTSIDE RECORDS SUMMARY | 2025-02-09 08:42 | XMS_ITS | Encounter Summary ---
Author Organization [employer] Address [address] [place] [address] [place] [address] Care Team Providers Care Hot Stick Man Name Role Phone Name, Harry NIELSEN Primary Care Provider [phone] Reason for Visit * Reason Onset Date Comments Med Refill 07/22/2024 Encounter Details Date Type Department Care Team (Late st Contact Info) Description 07/22/2024 Refill [facility] MEDICINE [address] [place], [place] [phone] Name, MD Harry [address] [place] [address] Lumbago with sciatica, left side Social History [...] Description 04/30/2025 10:00 AM EST Clinical Support [facility] MEDICINE [address] [place] [address] Cinda Moura, JOHN documented as of this encounter Visit Diagnoses Diagnosis Lumbago with sciatica, left side documented in this encounter Additional Health Concerns Assessment Noted Time PHQ-9 Depression Total Score: 23 024 9:52 AM EDT documented as of this encounter Care Teams Hot Stick Man Relationship Specialty Start Date End Date Name, MD Harry [address] [place] [address] PCP - General Family Medicine 08/03/15 documented as of this encounter
--- OUTSIDE RECORDS SUMMARY | 2025-02-09 08:42 | XMS_ITS | Encounter Summary ---
Author Organization [employer] Address [address] [place] [address] 7 [place] [address] Care Team Providers Care Group Counselor Name Role Phone Name, Harry NIELSEN Primary Care Provider [phone] Reason for Visit * Reason Comments Med Refill Encounter Details Date Type Department Care Team ([facility] Contact Info) Description 01/19/2025 Refill [facility] MEDICINE [address] [place], [place] [phone] Name, MD Harry [address] [place] [address] PTSD (post-traumatic stress disorder) Social History Tobacco [...] Description 04/30/2025 10:00 AM EST Clinical Support [facility] MEDICINE [address] [place] [address] Cinda Moura RN documented as of this encounter Visit Diagnoses Diagnosis PTSD (post-traumatic stress disorder) Posttraumatic stress disorder documented in this encounter Additional Health Concerns Assessment Noted Time PHQ-9 Depression Total Score: 14 025 1:44 PM EDT documented as of this encounter Care Teams Group Counselor Relationship Specialty Start Date End Date Name, MD Harry [address] [place] [address] PCP - General Family Medicine 08/03/15 documented as of this encounter
--- OUTSIDE RECORDS SUMMARY | 2025-02-09 08:42 | XMS_ITS | Encounter Summary ---
Author Organization [employer] Address [address] [place] [id number] Care Team Providers Care Floor Refinisher Name Role Phone Name, Harry NIELSEN Primary Care Provider [phone] Reason for Visit * Reason Onset Date Comments Med Refill 06/09/2024 Encounter Details Date Type Department Care Team ([facility] st Contact Info) Description 06/09/2024 Refill [facility] MEDICINE [address] [place], [place] [phone] Name, MD Harry [address] [place] [address] PTSD (post-traumatic stress disorder) Social History Tobacco [...] 1 MG tablet To be sent to: [id number] - [place] - [address] [place] [address] AT [facility] documented in this encounter Plan of Treatment Upcoming Encounters Date Type Department Care Team (Late st Contact Info) Description 04/30/2025 10:00 AM EST Clinical Support [facility] MEDICINE [address] [place] [address] Cinda Moura RN documented as of this encounter Visit Diagnoses Diagnosis PTSD (post-traumatic stress disorder) Posttraumatic stress disorder documented in this encounter Additional Health Concerns Assessment Noted Time PHQ-9 Depression Total Score: 23 024 9:52 AM EDT documented as of this encounter Care Teams Floor Refinisher Relationship Specialty Start Date End Date Name, MD Harry [address] [place] [id number] PCP - General Family Medicine 08/03/15 documented as of this encounter
--- OUTSIDE RECORDS SUMMARY | 2025-02-09 08:43 | XMS_ITS | Encounter Summary ---
Author Organization [employer] Address [address] [place] [address] 7 [place] [address] Care Team Providers Care Program Director Air Talent Name Role Phone Name, Harry NIELSEN Primary Care Provider [phone] Encounter Details Date Type Department Care Team ([facility] st Contact Info) Description 05/04/2023 Abstract [facility] MEDICINE [address] [place], [place] [phone] Name, MD Harry [address] [place] [address] Social History Tobacco Use Types Packs/Day Years [...] Description 04/30/2025 10:00 AM EST Clinical Support [facility] MEDICINE [address] [place] [address] Cinda Moura RN documented as of this encounter Visit Diagnoses Not on filedocumented in this encounter Additional Health Concerns Assessment Noted Time PHQ-9 Depression Total Score: 11 024 11:07 AM EST documented as of this encounter Care Teams Program Director Air Talent Relationship Specialty Start Date End Date Name, MD Harry [address] [place] [address] PCP - General Family Medicine 08/03/15 documented as of this encounter
--- OUTSIDE RECORDS SUMMARY | 2025-02-09 08:43 | XMS_ITS | Clinical Summary ---
Author Organization [employer] Address [address] [place] [address] 7 [place] [address] Care Team Providers Care Hull Grinder Name Role Phone Name, Harry NIELSEN Primary Care Provider [phone] Allergies Active Allergy Reactions Criticality Noted Date [...] available. 2 each 3 07/27/19 23 Active hydrOXYzine HCl (Atarax) 25 MG tabletIndicati ons:PTSD (post-traumati c stress disorder) Take 1 tablet (25 mg) by mouth if needed in the morning and at bedtime for anxiety. 60 tablet 1 08/27/19 25 Active melatonin 5 MG tabletIndicati ons:Insomnia, unspecified type One table at bedtime 30 tablet 3 12/18/19 25 Active amitriptyline (Elavil) 50 MG tabletIndicati ons:Primary insomnia TAKE 1 TABLET BY MOUTH AT BEDTIME 30 tablet 1 12/25/19 25 Active atorvastatin (Lipitor) 20 MG tablet TAKE 1 TABLET BY MOUTH IN THE MORNING 90 tablet 1 01/20/20 25 Active sertraline (Zoloft) 100 MG tabletIndicati ons:PTSD (post-traumati c stress disorder) TAKE 2 TABLETS BY MOUTH EVERY MORNING 60 tablet 1 01/20/20 25 Active oxyCODONE-acet aminophen (Percocet) 7.5-325 MG tabletIndicati ons:Lumbago with sciatica, left side Take 1 tablet by mouth every 6 (six) hours if needed for severe pain for up to 28 days. 112 tablet 01/21/20 25 025 Active clonazePAM (KlonoPIN) 1 MG tabletIndicati ons:PTSD (post-traumati c stress disorder) Take 1 tablet (1 mg) by mouth if needed in the morning and at bedtime for anxiety for up to 28 days. Do not start before January 21, 2025. 56 tablet 01/22/20 25 025 Active atorvastatin (Lipitor) 20 MG tablet TAKE 1 TABLET(20 MG) BY MOUTH IN THE MORNING 90 tablet 1 06/04/19 25 025 Discontinued(R eorder (will not trigger notification to Pharmacy)) sertraline (Zoloft) 100 MG tabletIndicati ons:PTSD (post-traumati c stress disorder) Take 2 tablets (200 mg) by mouth in the morning. 60 tablet 1 11/15/19 25 025 Discontinued(R eorder (will not trigger notification to Pharmacy)) oxyCODONE-acet aminophen (Percocet) 7.5-325 MG tabletIndicati ons:Lumbago with sciatica, left side Take 1 tablet by mouth every 6 (six) hours if needed for severe pain for up to 28 days. 112 tablet 12/20/19 25 025 Discontinued(R eorder (will not trigger notification to Pharmacy)) clonazePAM (KlonoPIN) 1 MG tabletIndicati ons:PTSD (post-traumati c stress disorder) Take 1 tablet (1 mg) by mouth if needed in the morning and at bedtime for anxiety for up to 28 days. Do not start before December 23, 2024. 56 tablet 12/24/19 25 025 Discontinued(R eorder (will not trigger notification to Pharmacy)) Active Problems Problem Noted Date Diagnosed Date Long-term current use of opiate analgesic 2024 Long-term current use of benzodiazepine 09/30/19 Blood in urine 07/29/2024 Assessment & Plan [...] recurrent major depressive disorder, without psychotic features ([facility]/HCC) - Primary Patient ready to address current needs Yes Strengths include strong family support PLAN: 1. Follow up with [facility]: Not recommended for follow-up 2. Patient goal [...] medication management. He should call [facility] with any questions or concerns. [...] (but not all). Recommend utilizing [facility] pharmacy with [facility], and pt [...] disease Urinary incontinence 08/16/2022 Moderate major depression ([facility]) 08/16/2022 Severe episode of recurrent major depressive disorder, without psychotic features ([facility]) 09/26/2017 Seasonal allergic rhinitis 09/26/2017 Occult blood in stools 02/05/2017 Insomnia 09/10/2015 Chronic low back pain 08/03/2015 Neurogenic bladder 08/03/2015 Cauda equina syndrome ([facility]) 08/03/2015 Resolved Problems Problem Noted Date Diagnosed [...] [place] [facility] [place]cele and non specific finding [...] organization. Date Type Department Care Team Description 01/29/2025 Telephone [facility] [address] [place] [phone] Cinda Moura, JOHN Clonazepam count discrepancy 01/28/2025 2:00 PM EDT Clinical Support [facility] MEDICINE [address] [place] [address] Cinda Moura, JOHN Long-term current use of opiate analgesic (Primary Dx); Long-term current use of benzodiazepine 01/28/2025 Telephone [facility] MEDICINE [address] [place] [address] [phone] Cinda Moura RN Forgot Clonazepam and Percocet 01/28/2025 Travel 01/24/2025 Refill [facility] MEDICINE [address] [place] [address] [phone] Harry Recio MD Primary insomnia 01/20/2025 Refill [facility] MEDICINE [address] [place] [address] [phone] Harry Recio MD Insomnia, unspecified type; Primary insomnia; PTSD (post-traumatic stress disorder); Lumbago with sciatica, left side 01/20/2025 Refill [facility] MEDICINE [address] [place] [address] [phone] NameHarry MD PTSD (post-traumatic stress disorder) 01/20/2025 Refill [facility] MEDICINE [address] [place] [address] [phone] Harry Recio MD Lumbago with sciatica, left side; PTSD (post-traumatic stress disorder) 01/19/2025 Refill [facility] MEDICINE [address] [place] [address] [phone] Harry Recio MD PTSD (post-traumatic stress disorder) 01/16/2025 Refill [facility] MEDICINE [address] [place] [address] 29379 Harry Recio MD Primary insomnia 01/16/2025 Refill [facility] MEDICINE [address] [place] [address] [phone] Harry Recio MD PTSD (post-traumatic stress disorder) 01/16/2025 Refill [facility] MEDICINE [address] [place] [address] 20407 Harry Recio MD PTSD (post-traumatic stress disorder) 01/16/2025 Refill [facility] MEDICINE [address] [place] [address] Harry Recio MD Insomnia, unspecified type 12/24/2024 Telephone [facility] MEDICINE [address] [place] [address] [phone] Harry Recio MD Call back request 12/23/2024 Refill [facility] MEDICINE [address] [place] [address] [phone] Harry Recio MD Primary insomnia 12/19/2024 Refill [facility] MEDICINE [address] [place] [address] Harry Recio MD Lumbago with sciatica, left side; PTSD (post-traumatic stress disorder) 12/17/2024 3:30 PM EDT Office Visit [facility] MEDICINE [address] [place] [address] [phone] Harry Recio MD Severe episode of recurrent major depressive disorder, without psychotic features (CMS/HCC) (Primary Dx); JA (generalized anxiety disorder); Insomnia, unspecified type 12/17/2024 Travel 12/15/2024 Telephone [facility] [address] [place] [address] Harry Recio MD Chart Prep 11/26/2024 Refill [facility] MEDICINE [address] [place] [address] 44360 Harry Recio MD Primary insomnia 11/21/2024 Refill [facility] MEDICINE [address] [place] [address] [phone] Harry Recio MD PTSD (post-traumatic stress disorder) 11/18/2024 Refill [facility] MEDICINE [address] [place] [address] 39595 Harry Recio MD Lumbago with sciatica, left side 11/13/2024 Refill [facility] MEDICINE [address] [place] [address] 51593 Harry Recio MD PTSD (post-traumatic stress disorder) 11/13/2024 Refill [facility] MEDICINE [address] [place] [address] [phone] Harry Recio MD PTSD (post-traumatic stress disorder) 11/11/2024 Telephone [facility] MEDICINE [address] [place] [address] [phone] Cinda Moura, RN Clonazepam, appt from Last 3 Months Immunizations Immunization Administration [...] Description 04/30/2025 10:00 AM EST Clinical Support [facility] MEDICINE [address] [place] [address] 27543 Cinda Moura, RN Health Maintenance Due Date [...] Comments POCT CAROL-14 URINE DRUG SCREEN Routine 01/28/2025 2:10 PM EDT Long-term current use of opiate analgesic Long-term current use of benzodiazepine US RENAL COMPLETE Routine 01/07/2025 7:0 5 PM EDT HEPATITIS C AB W/REFL TO HCV RNA, QN, PCR Routine 09/30/2024 10:57 AM EDT Need for hepatitis C screening test LIPID PANEL, STANDARD Routine 09/30/2024 10:57 AM EDT High cholesterol HM COLONOSCOPY Routine 01/24/2024 from Last 3 Months or Most Recently Relevant to Health Maintenance Results * (ABNORMAL) POCT CAROL-14 Urine Drug Screen (01/28/2025 2:10 PM EDT) THC Positive(A) Negative Cocaine Screen, Urine Negative Negative Opiate Screen, Urine Negative Negative Methamphetamine Screen Urine Negative Negative Amphetamine Screen, Urine Negative Negative Benzodiazepines Screen, Urine Positive(A) Negative Comment:UNCRATER pt on Clonazepam Barbiturate Screen, Urine Negative Negative Methadone Screen, Urine Negative Negative Buprenophine Screen, Urine Negative Negative TCA, Urine Positive(A) Negative MDMA Urine Negative Negative ng/mL Oxycodone Screen, Urine Positive(A) Negative Comment:UNCRATER pt on Percocet Phencyclidine (PCP), Urine Negative Negative Propoxyphene, Urine Negative Negative Fentanyl, Urine Negative Negative Urine Urine specimen obtained by clean catch procedure / Unknown 01/28/2025 2:10 PM EDT Narrative Cinda Moura RN - 01/28/2025 2:10 PM EDT UTOX cup Lot#[id number] Exp. 01/13/26 Internal Pass Control us Harry Name POINT OF CARE TEST ENTER/EDIT OR DERABLES Final Result * US Renal Complete (01/07/2025 7:05 PM EDT) Anatomical Region Laterality Modality Kidney Ultrasound 01/07/2025 7:05 PM EDT Narrative 01/07/2025 7:07 PM EDT [address] [address] Ultrasound Report Signed Patient: Ruddy Garcia MR#: [id number] : 1965 Acct:[id number] Age/Sex: 59 / M ADM Date: 01/07/25 Loc: HO.US Attending Dr: Dang SLADE Ordering Physician: Dang Salazar Date of Service: 01/07/25 Procedure(s): US renal BI Accession Number(s): [id number] cc: Dang Salazar; Name,Harry NIELSEN Reason for Exam: G83.4 - FREQUENT URINARY TRACT INFECTIONS CLINICAL HISTORY: G83.4 - FREQUENT URINARY TRACT INFECTIONS --- Additional Notes or Special Instructions: bladder not prepped, R S US Renal Comparison: None provided Findings: Right kidney normal size and echotexture, 12.5 cm length. Midpole renal cyst measuring 4.5 x 4.1 x 4.4 cm with minimal thin septations. This may be further evaluated on follow-up in 6-12 months as indicated. Left kidney normal size and echotexture, 12.6 cm length. Mild pelviectasis. No significant hydronephrosis of either kidney. Normal color Doppler. Urinary bladder not well visualized, per technologist notes, the bladder scan is rescheduled. IMPRESSION: No hydronephrosis. Mildly complex right renal cyst, please see above. This document has been electronically signed by: Eric Rausch MD on 01/07/2025 19:05:58 Dictated By: Eric Rausch MD Signed By: <Electronically signed by Eric Rausch MD in OV> 01/07/251906 DD/ 04 TD/TT: 01/07/251904 Bridge Opener: Procedure Note Donotuseinterpreter, Image - 01/07/2025 [place] [address] Ultrasound Report Signed Patient: Ruddy Garcia RMR#: [id number] : 1965Acct:[id number] Age/Sex: 59 / MADM Date: 01/07/25 Loc: .US Attending Dr: Dang SLADE Ordering Physician: Dang Salazar Date of Service: 01/07/25 Procedure(s): US renal BI Accession Number(s): [id number] cc: Dang Salazar [facility]; Name,Harry NIELSEN Reason for Exam: G83.4 - FREQUENT URINARY TRACT INFECTIONS CLINICAL HISTORY: G83.4 - FREQUENT URINARY TRACT INFECTIONS --- AdditionalNotes or Special Instructions: bladder not prepped, R S US Renal Comparison: None provided Findings: Right kidney normal size and echotexture, 12.5 cm length. Midpole renal cyst measuring 4.5 x 4.1 x 4.4 cm with minimal thin septations. This may be further evaluated on follow-up in 6-12 months as indicated. Left kidney normal size and echotexture, 12.6 cm length. Mildpelviectasis. No significant hydronephrosis of either kidney. Normal color Doppler. Urinary bladder not well visualized, per technologist notes, the bladder scan is rescheduled. IMPRESSION: No hydronephrosis. Mildly complex right renal cyst, please see above. This document has been electronically signed by: Eric Rausch MD on 01/07/2025 19:05:58 Dictated By: Eric Rausch MD Signed By: <Electronically signed by Eric Rausch MD in OV> 01/07/251906 DD/ 04 TD/TT: 01/07/251904 Bridge Opener: [facility] External Provider IMG US PROCEDURES Final Result * Hepatitis C Antibody with Reflex to HCV, RNA, Quantitative, Real-Time PCR (09/30/2024 10:57 AM EDT) Hepatitis C Antibody Nonreactive Nonreactive [facility] Comment:Antibodies to HCV no t detected; does not exclude early acuteHCV infection. Blood Venous blood specimen / Unknown 09/30/2024 10:57 AM EDT 09/30/2024 12:56 PM EDT Result [facility] Harry Recio MD LAB BLOOD ORDERABLES Final Resul t [facility] [address] [place] [phone] * (ABNORMAL) Lipid Panel, Standard (09/30/2024 10:57 AM EDT) Triglycerides 357(H) <150 mg/dL [facility] Comment:Desirable Triglyceri de: less than 150 mg/dLBorderline High Triglyceride 150-199 mg/dLHigh Triglyceride: 200-499 mg/dLVery High Triglyceride: greater than or equal to 5OO mg/dL Cholesterol 149 <200 mg/dL [facility] Comment:Desirable Cholestero l: less than 200 mg/dLBorderline High Cholesterol: 200-239 mg/dLHigh Cholesterol: greater than 239 mg/dL LDL Cholesterol Calculated 55 <100 mg/dL [facility] Comment:Desirable LDL: less than 100 mg/dLNear Optimal/Above Optimal LDL: 110- 129 mg/dLBorderline High LDL: 130-159 mg/dLHigh LDL: 160-189 mg/dLVery High LDL: greater than or equal to 190 mg/dL HDL Cholesterol 23(L) >40 mg/dL [facility] Comment:Desirable HDL: great er than 40 mg/dL Note: This HDL assay may give artificially low results in patients with liver disease. Blood Venous blood specimen / Unknown 09/30/2024 10:57 AM EDT 09/30/2024 12:56 PM EDT us Harry Recio MD LAB BLOOD ORDERABLES Final Resul t [facility] [address] [place] [phone] * (ABNORMAL) Hm Colonoscopy (01/24/2024) Colonoscopy Abnormal(A ) Normal 01/24/2024 us Harry Recio MD HEALTH MAINTENANCE Final Result from Last 3 Months or Most Recently Relevant to Health Maintenance Insurance [facility] STANDARD [employer] MEDICARE REPLACEMENT Care Teams Hull Grinder Relationship Specialty Start Date End Date Name, MD Harry [address] [place] [phone] PCP - General Family Medicine 08/03/15
--- OUTSIDE RECORDS SUMMARY | 2025-02-09 08:43 | XMS_ITS | Encounter Summary ---
Author Organization [employer] Address [address] [place] [address] [place] [address] Care Team Providers Care Coach Cleaner Name Role Phone Name, Harry NIELSEN Primary Care Provider [phone] Reason for Visit * Reason Onset Date Comments Med Refill 10/23/2024 Encounter Details Date Type Department Care Team ([facility] st Contact Info) Description 10/23/2024 Refill [facility] [address], [place] [phone] Name, MD Harry [address] [place] [address] Social History Tobacco Use Types Packs/Day Years [...] Description 04/30/2025 10:00 AM EST Clinical Support [facility] [address] [place] [address] Cinda Moura RN documented as of this encounter Visit Diagnoses Not on filedocumented in this encounter Additional Health Concerns Assessment Noted Time PHQ-9 Depression Total Score: 23 024 9:52 AM EDT documented as of this encounter Care Teams Coach Cleaner Relationship Specialty Start Date End Date Name, MD Harry [address] [place] [address] PCP - General Family Medicine 08/03/15 documented as of this encounter
--- OUTSIDE RECORDS SUMMARY | 2025-02-09 08:43 | XMS_ITS | Encounter Summary ---
Author Organization [employer] Address [address] [place] [address] [place] [address] Care Team Providers Care Recycling Operator Name Role Phone Name, Harry NIELSEN Primary Care Provider [phone] Reason for Visit * Reason Onset Date Comments Med Refill 08/19/2024 Encounter Details Date Type Department Care Team (Late st Contact Info) Description 08/19/2024 Refill [facility] MED[facility]INE [address] [place], [place] [phone] Name, MD Harry [address] [place] [address] Lumbago with sciatica, left side Social History [...] EST Clinical Support [facility] [address] [place] [address] Cinda Moura, JOHN documented as of this encounter Visit Diagnoses Diagnosis Lumbago with sciatica, left side documented in this encounter Additional Health Concerns Assessment Noted Time PHQ-9 Depression Total Score: 23 024 9:52 AM EDT documented as of this encounter Care Teams Recycling Operator Relationship Specialty Start Date End Date Name, MD Harry [address] [place] [address] PCP - General Family Medicine 08/03/15 documented as of this encounter
--- OUTSIDE RECORDS SUMMARY | 2025-02-09 08:43 | XMS_ITS | Encounter Summary ---
Author Organization [employer] Address [address] [place] [address] [place] [address] Care Team Providers Care Core Maker Helper Name Role Phone Name, Harry NIELSEN Primary Care Provider [phone] Reason for Visit * Reason Onset Date Comments Med Refill 01/20/2025 Encounter Details Date Type Department Care Team ([facility] st Contact Info) Description 01/20/2025 Refill [facility] [address] [place], [place] [phone] Name, MD Harry [address] [place] [address] Insomnia, unspecified type; Primary insomnia; PTSD (post-traumatic stress disorder); Lumbago with sciatica, left side Social History [...] Description 04/30/2025 10:00 AM EST Clinical Support [facility] [address] [place] [address] Cinda Moura, RN documented as of this encounter Visit Diagnoses Diagnosis Insomnia, unspecified type Primary insomnia Persistent disorder of initiating or maintaining sleep PTSD (post-traumatic stress disorder) Posttraumatic stress disorder Lumbago with sciatica, left side documented in this encounter Additional Health Concerns Assessment Noted Time PHQ-9 Depression Total Score: 14 025 1:44 PM EDT documented as of this encounter Care Teams Core Maker Helper Relationship Specialty Start Date End Date Name, MD Harry [address] [place] [address] PCP - General Family Medicine 08/03/15 documented as of this encounter
--- OUTSIDE RECORDS SUMMARY | 2025-02-09 08:43 | XMS_ITS | Encounter Summary ---
Author Organization [employer] Address [address] [place] [address] 7 [place] [address] Care Team Providers Care Contract Administration Manager Name Role Phone Name, Harry NIELSEN Primary Care Provider [phone] Reason for Visit * Reason Onset Date Comments Med Refill 03/30/2023 Encounter Details Date Type Department Care Team ([facility] st Contact Info) Description 03/30/2023 Telephone [facility]INE [address] [place], [place] [phone] Name, MD Harry [address] [place] [address] Med Refill Social History Tobacco Use Types [...] 10:47 AM EST Medication was sent to [facility] #[id number] on 02/06/23 #90 to soon for refill. * Telephone Encounter - Rosie Branham - 03/30/2023 10:41 AM EST TC from pt requesting medication refill. Medications needing refill : amitriptyline (Elavil) 50 MG tablet To be sent to: [id number] AT [facility] documented in this encounter Plan of Treatment Upcoming Encounters Date Type Department Care Team ([facility] st Contact Info) Description 04/30/2025 10:00 AM EST Clinical Support [facility] MEDICINE [address] [place] [address] Cinda Moura RN documented as of this encounter Visit Diagnoses Not on filedocumented in this encounter Additional Health Concerns Assessment Noted Time PHQ-9 Depression Total Score: 8 02/07/20 10:45 AM EDT documented as of this encounter Care Teams Contract Administration Manager Relationship Specialty Start Date End Date Name, MD Harry [address] [place] [address] PCP - General Family Medicine 08/03/15 documented as of this encounter
--- OUTSIDE RECORDS SUMMARY | 2025-02-09 08:43 | XMS_ITS | Encounter Summary ---
Author Organization [employer] Address [address] [place] [address] 7 [place] [address] Care Team Providers Care Aws Architect Name Role Phone Name, Harry NIELSEN Primary Care Provider Reason for Visit * Reason Comments Med Refill Encounter Details Date Type Department Care Team ([facility] Contact Info) Description 11/26/2024 Refill [facility] MED[facility] [address] [place], [place] [phone] Name, MD Harry [address] [place] [address] Primary insomnia Social History Tobacco Use Types [...] Description 04/30/2025 10:00 AM EST Clinical Support [facility] MEDICINE [address] [place] [address] Cinda Moura RN documented as of this encounter Visit Diagnoses Diagnosis Primary insomnia Persistent disorder of initiating or maintaining sleep documented in this encounter Additional Health Concerns Assessment Noted Time PHQ-9 Depression Total Score: 14 025 1:44 PM EDT documented as of this encounter Care Teams Aws Architect Relationship Specialty Start Date End Date Name, MD Harry [address] [place] [address] PCP - General Family Medicine 08/03/15 documented as of this encounter
--- OUTSIDE RECORDS SUMMARY | 2025-02-09 08:43 | XMS_ITS | Encounter Summary ---
Author Organization [employer] Address [address] [place] [address] 7 [place] [address] Care Team Providers Care Mold Parter Name Role Phone Name, Harry NIELSEN Primary Care Provider [phone] Reason for Visit * Reason Onset Date Comments Med Refill 10/22/2024 Encounter Details Date Type Department Care Team ([facility] st Contact Info) Description 10/22/2024 Refill [facility] [address] [place], [place] [phone] Name, MD Harry [address] [place] [address] Primary insomnia Social History Tobacco Use Types [...] Description 04/30/2025 10:00 AM EST Clinical Support [facility] [address] [place] [address] Cinda Moura, JOHN documented as of this encounter Visit Diagnoses Diagnosis Primary insomnia Persistent disorder of initiating or maintaining sleep documented in this encounter Additional Health Concerns Assessment Noted Time PHQ-9 Depression Total Score: 23 024 9:52 AM EDT documented as of this encounter Care Teams Mold Parter Relationship Specialty Start Date End Date Name, MD Harry [address] [place] [address] PCP - General Family Medicine 08/03/15 documented as of this encounter
--- OUTSIDE RECORDS SUMMARY | 2025-02-09 08:43 | XMS_ITS | Encounter Summary ---
Author Organization [employer] Address [address] [place] [address] 7 [place] [address] Care Team Providers Care Size Painter Name Role Phone Name, Harry NIELSEN Primary Care Provider [phone] Reason for Visit * Reason Comments Med Refill Encounter Details Date Type Department Care Team ([facility] st Contact Info) Description 05/09/2023 Refill [facility] [address] [place], [place] [phone] Carlos Gr FNP PTSD (post-traumatic stress disorder) [...] Description 04/30/2025 10:00 AM EST Clinical Support [facility] [address] [place] [address] Cinda Moura RN documented as of this encounter Visit Diagnoses Diagnosis PTSD (post-traumatic stress disorder) Posttraumatic stress disorder documented in this encounter Additional Health Concerns Assessment Noted Time PHQ-9 Depression Total Score: 11 024 11:07 AM EST documented as of this encounter Care Teams Size Painter Relationship Specialty Start Date End Date Name, MD Harry [address] [place] [address] PCP - General Family Medicine 08/03/15 documented as of this encounter
--- OUTSIDE RECORDS SUMMARY | 2025-02-09 08:43 | XMS_ITS | Encounter Summary ---
Author Organization [employer] Address [address] [place] [address] 7 [place] [address] Care Team Providers Care Fuel Cell Battery Technician Name Role Phone Name, Harry NIELSEN Primary Care Provider [phone] Reason for Visit * Reason Onset Date Comments Med Refill 01/24/2025 Encounter Details Date Type Department Care Team ([facility] st Contact Info) Description 01/24/2025 Refill [facility] MEDICINE [address] [place], [place] [phone] Name, MD Harry 230 [place] [address] Primary insomnia Social History Tobacco Use Types [...] Description 04/30/2025 10:00 AM EST Clinical Support [facility] MEDICINE [address] [place] [address] Cinda Moura, JOHN documented as of this encounter Visit Diagnoses Diagnosis Primary insomnia Persistent disorder of initiating or maintaining sleep documented in this encounter Additional Health Concerns Assessment Noted Time PHQ-9 Depression Total Score: 14 025 1:44 PM EDT documented as of this encounter Care Teams Fuel Cell Battery Technician Relationship Specialty Start Date End Date Name, MD Harry [address] [place] [address] PCP - General Family Medicine 08/03/15 documented as of this encounter
--- OUTSIDE RECORDS SUMMARY | 2025-02-09 08:43 | XMS_ITS | Encounter Summary ---
Author Organization [employer] Address [address] [place] [address] [place] [address] Care Team Providers Care Manager Of Enterprise Name Role Phone Name, Harry NIELSEN Primary Care Provider [phone] Reason for Visit * Reason Onset Date Comments Med Refill 01/16/2025 Encounter Details Date Type Department Care Team ([facility] st Contact Info) Description 01/16/2025 Refill [facility] MEDICINE 230 [place], [place] [phone] Name, MD Harry 230 [place] [address] PTSD (post-traumatic stress disorder) Social History Tobacco [...] 10:00 AM EST Clinical Support [facility] MEDICINE 230 [place] [address] Cinda Moura, JOHN documented as of this encounter Visit Diagnoses Diagnosis PTSD (post-traumatic stress disorder) Posttraumatic stress disorder documented in this encounter Additional Health Concerns Assessment Noted Time PHQ-9 Depression Total Score: 14 025 1:44 PM EDT documented as of this encounter Care Teams Manager Of Enterprise Relationship Specialty Start Date End Date Name, MD Harry 230 [place] [address] PCP - General Family Medicine 08/03/15 documented as of this encounter
--- OUTSIDE RECORDS SUMMARY | 2025-02-09 08:43 | XMS_ITS | Encounter Summary ---
Author Organization [employer] Address [address] [place] [address] 7 [place] [address] Care Team Providers Care Counseling Department Chair Name Role Phone Name, Harry NIELSEN Primary Care Provider [phone] Reason for Visit * Reason Onset Date Comments Med Refill 01/16/2025 Encounter Details Date Type Department Care Team ([facility] st Contact Info) Description 01/16/2025 Refill [facility] MEDICINE 230 [place], [place] [phone] Name, MD Harry 230 [place] [address] Primary insomnia Social History Tobacco Use Types [...] Description 04/30/2025 10:00 AM EST Clinical Support [facility] MEDICINE 230 [place] [address] Cinda Moura, JOHN documented as of this encounter Visit Diagnoses Diagnosis Primary insomnia Persistent disorder of initiating or maintaining sleep documented in this encounter Additional Health Concerns Assessment Noted Time PHQ-9 Depression Total Score: 14 025 1:44 PM EDT documented as of this encounter Care Teams Counseling Department Chair Relationship Specialty Start Date End Date Name, MD Harry 230 [place] [address] PCP - General Family Medicine 08/03/15 documented as of this encounter
--- OUTSIDE RECORDS SUMMARY | 2025-02-09 08:43 | XMS_ITS | Encounter Summary ---
Author Organization [employer] Address [address] [place] [address] Care Team Providers Care Utility Tender Carding Name Role Phone Name, Harry NIELSEN Primary Care Provider [phone] Reason for Visit * Reason Onset Date Comments Med Refill 10/22/2024 Encounter Details Date Type Department Care Team ([facility] st Contact Info) Description 10/22/2024 Refill [facility] MEDICINE 230 [place], [place] [phone] Name, MD Harry 230 [place] [address] PTSD (post-traumatic stress disorder) Social History Tobacco [...] Description 04/30/2025 10:00 AM EST Clinical Support [facility] MEDICINE 230 [place] [address] Cinda Moura RN documented as of this encounter Visit Diagnoses Diagnosis PTSD (post-traumatic stress disorder) Posttraumatic stress disorder documented in this encounter Additional Health Concerns Assessment Noted Time PHQ-9 Depression Total Score: 23 024 9:52 AM EDT documented as of this encounter Care Teams Utility Tender Carding Relationship Specialty Start Date End Date Name, MD Harry 230 [place] [address] PCP - General Family Medicine 08/03/15 documented as of this encounter
--- OUTSIDE RECORDS SUMMARY | 2025-02-09 08:43 | XMS_ITS | Encounter Summary ---
Author Organization [employer] Address [address] [place] [address] 7 [place] [address] Care Team Providers Care Communication Instructor Name Role Phone Name, Harry NIELSEN Primary Care Provider [phone] Reason for Visit * Reason Onset Date Comments Med Refill 01/16/2025 Encounter Details Date Type Department Care Team ([facility] st Contact Info) Description 01/16/2025 Refill [facility] MEDICINE 230 [place], [place] [phone] Name, MD Harry 230 [place] [address] Insomnia, unspecified type Social History Tobacco Use Types Packs/Day Years [...] 10:00 AM EST Clinical Support [facility] MEDICINE 230 [place] [address] Cinda Moura, JOHN documented as of this encounter Visit Diagnoses Diagnosis Insomnia, unspecified type documented in this encounter Additional Health Concerns Assessment Noted Time PHQ-9 Depression Total Score: 14 025 1:44 PM EDT documented as of this encounter Care Teams Communication Instructor Relationship Specialty Start Date End Date Name, MD Harry 230 [place] [address] PCP - General Family Medicine 08/03/15 documented as of this encounter
--- OUTSIDE RECORDS SUMMARY | 2025-02-09 08:43 | XMS_ITS | Encounter Summary ---
Author Organization [employer] Address [address] [place] [address] [place] [address] Care Team Providers Care Certified Welder Name Role Phone Name, Harry NIELSEN Primary Care Provider Reason for Visit * Reason Onset Date Comments Med Refill 10/22/2024 Encounter Details Date Type Department Care Team (Late st Contact Info) Description 10/22/2024 Refill [facility] MEDICINE 230 [place], [place] [phone] Name, MD Harry 230 [place] [address] Lumbago with sciatica, left side Social History [...] Description 04/30/2025 10:00 AM EST Clinical Support [facility] MEDICINE 230 [place] [address] Cinda Moura, JOHN documented as of this encounter Visit Diagnoses Diagnosis Lumbago with sciatica, left side documented in this encounter Additional Health Concerns Assessment Noted Time PHQ-9 Depression Total Score: 23 024 9:52 AM EDT documented as of this encounter Care Teams Certified Welder Relationship Specialty Start Date End Date Name, MD Harry 230 [place] [address] PCP - General Family Medicine 08/03/15 documented as of this encounter
--- OUTSIDE RECORDS SUMMARY | 2025-02-09 08:43 | XMS_ITS | Encounter Summary ---
Author Organization [employer] Address [address] [place] [address] Care Team Providers Care Corporate Lawyer Name Role Phone Name, Harry NIELSEN Primary Care Provider [phone] Reason for Visit * Reason Onset Date Comments Med Refill 12/18/2023 Encounter Details Date Type Department Care Team ([facility] st Contact Info) Description 12/18/2023 Telephone [facility] MEDICINE 230 [place], [place] [phone] Name, MD Harry 230 [place] [address] Med Refill Social History Tobacco Use Types [...] 1 MG tablet To be sent to: [facility] documented in this encounter Plan of Treatment Upcoming Encounters Date Type Department Care Team (Late st Contact Info) Description 04/30/2025 10:00 AM EST Clinical Support [facility] MEDICINE 230 [place] [address] Cinda Moura, RN documented as of this encounter Visit Diagnoses Not on filedocumented in this encounter Additional Health Concerns Assessment Noted Time PHQ-9 Depression Total Score: 4 07/16/19 24 9:39 AM EDT documented as of this encounter Care Teams Corporate Lawyer Relationship Specialty Start Date End Date Name, MD Harry 230 [place] [address] PCP - General Family Medicine 08/03/15 documented as of this encounter
[2025-02-09 10:11] VITALS: BP 106/80; PULSE 76; RESP 16; TEMP 36.6; O2SAT 96
[2025-02-09 10:41] VITALS: BP 106/80; PULSE 76; RESP 16; TEMP 36.6; O2SAT 96
== END 2025-02-09 10:42 | disposition home or self-care (01) ==
PROVIDERS: Emergency Provider Emergency Medicine; PCP Internal Medicine Geriatric Medicine
DX: M54.16 Radiculopathy, lumbar region (principal); N31.9 Neuromuscular dysfunction of bladder, unspecified; Z87.440 Personal history of urinary (tract) infections; Z87.828 Personal history of other (healed) physical injury and trauma; Z79.899 Other long term (current) drug therapy
CPT/HCPCS: 96372; 99284; J1885

== ENCOUNTER 2025-03-28 07:40 | Outpatient (REF) | payer MEDICARE, MEDICAID, SELFPAY ==
--- NOTE | ~2025-03-28 | US_ITS ---
EXAMINATION: US PELVIS LIMITED (BLADDER) CLINICAL INFORMATION: Recurrent UTI, pain COMPARISON: None available. TECHNIQUE: Real-time imaging of the bladder. FINDINGS: Technologist reports very limited examination. Patient unable to void. BLADDER: Well distended. The bladder wall is irregular. There is debris seen within the bladder. . Bilateral ureteral jets are not demonstrated. Prevoid bladder volume is 495 mL. Postvoid bladder volume could not be obtained.. Prostate was not visualized. US/US bladder IMPRESSION: Very limited examination. Patient unable to void. Urinary Bladder wall is irregular. There is debris seen within the bladder. Electronically signed by: Marcelino Robles MD 03/30/2025 11:41 AM EST
--- OUTSIDE RECORDS SUMMARY | 2025-03-28 07:43 | XMS_ITS | Encounter Summary ---
Author Organization [employer] Address [address] [place] [address] [place] [address] Care Team Providers Care Cement Despatch Operator Name Role Phone Name, Harry NIELSEN Primary Care Provider Reason for Visit * Reason Onset Date Comments Med Refill 08/19/2024 Encounter Details Date Type Department Care Team (Late st Contact Info) Description 08/19/2024 Refill [facility] MEDICINE 230 [place], [place] [phone] Name, MD Harry 230 [place] [address] Lumbago with sciatica, left side Social History [...] Description 04/30/2025 10:00 AM EST Clinical Support [address] [address] Cinda Moura RN 05/15/2025 3:30 PM EST Office Visit [address] [address] Name, MD Harry [address] [place] [address] documented as of this encounter Visit Diagnoses Diagnosis Lumbago with sciatica, left side documented in this encounter Additional Health Concerns Assessment Noted Time PHQ-9 Depression Total Score: 23 024 9:52 AM EDT documented as of this encounter Care Teams Cement Despatch Operator Relationship Specialty Start Date End Date NameHarry MD [address] [place] [address] PCP - General Family Medicine 08/03/15 documented as of this encounter
--- OUTSIDE RECORDS SUMMARY | 2025-03-28 07:43 | XMS_ITS | Encounter Summary ---
Author Organization [employer] Address [address] [place] [address] 7 [place] [address] Care Team Providers Care Sheetmetal Trades Worker Name Role Phone Name, Harry NIELSEN Primary Care Provider Reason for Visit * Reason Onset Date Comments Med Refill 01/24/2025 Encounter Details Date Type Department Care Team ([facility] st Contact Info) Description 01/24/[address] [facility] MEDICINE 230 [place], [place] [phone] Name, MD Harry 230 [place] [address] Primary insomnia Social History Tobacco Use Types [...] Description 04/30/2025 10:00 AM EST Clinical Support [address] [address] Cinda Moura RN 05/15/2025 3:30 PM EST Office Visit [address] [address] NameHarry MD [address] [place] [address] documented as of this encounter Visit Diagnoses Diagnosis Primary insomnia Persistent disorder of initiating or maintaining sleep documented in this encounter Additional Health Concerns Assessment Noted Time PHQ-9 Depression Total Score: 14 025 1:44 PM EDT documented as of this encounter Care Teams Sheetmetal Trades Worker Relationship Specialty Start Date End Date Harry Recio MD [address] [place] [address] PCP - General Family Medicine 08/03/15 documented as of this encounter
--- OUTSIDE RECORDS SUMMARY | 2025-03-28 07:43 | XMS_ITS | Encounter Summary ---
Author Organization [employer] Address [address] [place] [address] 7 [place] [address] Care Team Providers Care Budget Director Name Role Phone Name, Harry NIELSEN Primary Care Provider [phone] Reason for Visit * Reason Onset Date Comments Med Refill 01/16/2025 Encounter Details Date Type Department Care Team ([facility] st Contact Info) Description 01/16/2025 Refill [facility] MEDICINE 230 [place], [place] [phone] Name, MD Harry 230 [place] [address] Primary insomnia Social History Tobacco Use Types [...] Description 04/30/2025 10:00 AM EST Clinical Support [address] [address] Cinda Moura RN 05/15/2025 3:30 PM EST Office Visit [address] [address] NameHarry MD [address] [place] [address] documented as of this encounter Visit Diagnoses Diagnosis Primary insomnia Persistent disorder of initiating or maintaining sleep documented in this encounter Additional Health Concerns Assessment Noted Time PHQ-9 Depression Total Score: 14 025 1:44 PM EDT documented as of this encounter Care Teams Budget Director Relationship Specialty Start Date End Date Harry Recio MD [address] [place] [address] PCP - General Family Medicine 08/03/15 documented as of this encounter
--- OUTSIDE RECORDS SUMMARY | 2025-03-28 07:43 | XMS_ITS | Encounter Summary ---
Author Organization [employer] Address [address] [place] [address] 7 [place] [address] Care Team Providers Care Watch Crystal Edge Grinder Name Role Phone Name, Harry NIELSEN Primary Care Provider [phone] Reason for Visit * Reason Onset Date Comments Med Refill 02/16/2025 Encounter Details Date Type Department Care Team ([facility] st Contact Info) Description 02/16/[address] [facility] MEDICINE 230 [place], [place] [phone] Name, MD Harry 230 [place] [address] Primary insomnia Social History Tobacco Use Types [...] Description 04/30/2025 10:00 AM EST Clinical Support [address] [address] Cinda Moura RN 05/15/2025 3:30 PM EST Office Visit [address] [address] NameHarry MD [address] [place] [address] documented as of this encounter Visit Diagnoses Diagnosis Primary insomnia Persistent disorder of initiating or maintaining sleep documented in this encounter Additional Health Concerns Assessment Noted Time PHQ-9 Depression Total Score: 14 025 1:44 PM EDT documented as of this encounter Care Teams Watch Crystal Edge Grinder Relationship Specialty Start Date End Date Harry Recio MD [address] [place] [address] PCP - General Family Medicine 08/03/15 documented as of this encounter
--- OUTSIDE RECORDS SUMMARY | 2025-03-28 07:43 | XMS_ITS | Encounter Summary ---
Author Organization [employer] Address [address] [place] [address] 7 [place] [address] Care Team Providers Care Advocacy Director Name Role Phone Name, Harry NIELSEN Primary Care Provider [phone] Reason for Visit * Reason Comments Med Refill Encounter Details Date Type Department Care Team ([facility] Contact Info) Description 01/19/2025 Refill [facility] MEDICINE 230 [place], [place] [phone] Name, MD Harry 230 [place] [address] PTSD (post-traumatic stress disorder) Social History Tobacco [...] Description 04/30/2025 10:00 AM EST Clinical Support [address] [address] Cinda Moura RN 05/15/2025 3:30 PM EST Office Visit [address] [address] NameHarry MD [address] [place] [address] documented as of this encounter Visit Diagnoses Diagnosis PTSD (post-traumatic stress disorder) Posttraumatic stress disorder documented in this encounter Additional Health Concerns Assessment Noted Time PHQ-9 Depression Total Score: 14 025 1:44 PM EDT documented as of this encounter Care Teams Advocacy Director Relationship Specialty Start Date End Date Harry Recio MD [address] [place] [address] PCP - General Family Medicine 08/03/15 documented as of this encounter
--- OUTSIDE RECORDS SUMMARY | 2025-03-28 07:43 | XMS_ITS | Encounter Summary ---
Author Organization [employer] Address [address] [place] [address] [place] [address] Care Team Providers Care Upholsterer Apprentice Name Role Phone Name, Harry NIELSEN Primary Care Provider [phone] Reason for Visit * Reason Onset Date Comments Med Refill 01/16/2025 Encounter Details Date Type Department Care Team ([facility] st Contact Info) Description 01/16/[address] [facility] MEDICINE 230 [place], [place] [phone] Name, MD Harry 230 [place] [address] PTSD (post-traumatic stress disorder) Social History Tobacco [...] Description 04/30/2025 10:00 AM EST Clinical Support [address] [address] Cinda Moura RN 05/15/2025 3:30 PM EST Office Visit [address] [address] NameHarry MD [address] [place] [address] documented as of this encounter Visit Diagnoses Diagnosis PTSD (post-traumatic stress disorder) Posttraumatic stress disorder documented in this encounter Additional Health Concerns Assessment Noted Time PHQ-9 Depression Total Score: 14 025 1:44 PM EDT documented as of this encounter Care Teams Upholsterer Apprentice Relationship Specialty Start Date End Date Harry Recio MD [address] [place] [address] PCP - General Family Medicine 08/03/15 documented as of this encounter
--- OUTSIDE RECORDS SUMMARY | 2025-03-28 07:43 | XMS_ITS | Encounter Summary ---
Author Organization [employer] Address [address] [place] [address] Care Team Providers Care Screener And Blender Operator Name Role Phone Name, Harry NIELSEN Primary Care Provider [phone] Reason for Visit * Reason Onset Date Comments Med Refill 10/22/2024 Encounter Details Date Type Department Care Team ([facility] st Contact Info) Description 10/22/2024 Refill [facility] MEDICINE 230 [place], [place] [phone] Name, MD Harry 230 [place] [address] PTSD (post-traumatic stress disorder) Social History Tobacco [...] Description 04/30/2025 10:00 AM EST Clinical Support [address] [address] Cinda Moura RN 05/15/2025 3:30 PM EST Office Visit [address] [address] Name, MD Harry [address] [place] [address] documented as of this encounter Visit Diagnoses Diagnosis PTSD (post-traumatic stress disorder) Posttraumatic stress disorder documented in this encounter Additional Health Concerns Assessment Noted Time PHQ-9 Depression Total Score: 23 024 9:52 AM EDT documented as of this encounter Care Teams Screener And Blender Operator Relationship Specialty Start Date End Date Harry Recio MD [address] [place] [address] PCP - General Family Medicine 08/03/15 documented as of this encounter
--- OUTSIDE RECORDS SUMMARY | 2025-03-28 07:43 | XMS_ITS | Encounter Summary ---
Author Organization [employer] Address [address] [place] [address] [place] [address] Care Team Providers Care Museum Director Name Role Phone Name, Harry NIELSEN Primary Care Provider [phone] Reason for Visit * Reason Onset Date Comments Med Refill 12/18/2023 Encounter Details Date Type Department Care Team ([facility] st Contact Info) Description 12/18/2023 Telephone [facility] MEDICINE 230 [place], [place] [phone] Name, MD Harry 230 [place] [address] Med Refill Social History Tobacco Use Types [...] Description 04/30/2025 10:00 AM EST Clinical Support [facility] MEDICINE [address] [place] [address] Cinda Moura RN 05/15/2025 3:30 PM EST Office Visit [address] [address] Name, MD Harry [address] [place] [address] documented as of this encounter Visit Diagnoses Not on filedocumented in this encounter Additional Health Concerns Assessment Noted Time PHQ-9 Depression Total Score: 4 07/16/19 24 9:39 AM EDT documented as of this encounter Care Teams Museum Director Relationship Specialty Start Date End Date Name, MD Harry 230 [place] [address] PCP - General Family Medicine 08/03/15 documented as of this encounter
--- OUTSIDE RECORDS SUMMARY | 2025-03-28 07:43 | XMS_ITS | Encounter Summary ---
Author Organization [employer] Address [address] [place] [address] [place] [address] Care Team Providers Care Non Destructive Evaluation Manager Name Role Phone Name, Harry NIELSEN Primary Care Provider [phone] Reason for Visit * Reason Onset Date Comments Med Refill 03/23/2025 Encounter Details Date Type Department Care Team ([facility] st Contact Info) Description 03/23/2025 Refill [facility] MEDICINE 230 [place], [place] [phone] Name, MD Harry 230 [place] [address] Social History Tobacco Use Types Packs/Day Years [...] Description 04/30/2025 10:00 AM EST Clinical Support [address] [address] Cinda Moura RN 05/15/2025 3:30 PM EST Office Visit [address] [address] Name, MD Harry [address] [place] [address] documented as of this encounter Visit Diagnoses Not on filedocumented in this encounter Additional Health Concerns Assessment Noted Time PHQ-9 Depression Total Score: 14 025 1:44 PM EDT documented as of this encounter Care Teams Non Destructive Evaluation Manager Relationship Specialty Start Date End Date NameHarry MD [address] [place] [address] PCP - General Family Medicine 08/03/15 documented as of this encounter
--- OUTSIDE RECORDS SUMMARY | 2025-03-28 07:43 | XMS_ITS | Encounter Summary ---
Author Organization [employer] Address [address] [place] [address] Care Team Providers Care Web Marketing Specialist Name Role Phone Name, Harry NIELSEN Primary Care Provider [phone] Reason for Visit * Reason Onset Date Comments Med Refill 06/09/2024 Encounter Details Date Type Department Care Team ([facility] st Contact Info) Description 06/09/2024 Refill [facility] MEDICINE 230 [place], [place] [phone] Name, MD Harry 230 [place] [address] PTSD (post-traumatic stress disorder) Social History Tobacco [...] 1 MG tablet To be sent to: [id number] - [place] - [address] [place] [address] AT [facility] documented in this encounter Plan of Treatment Upcoming Encounters Date Type Department Care Team (Late st Contact Info) Description 04/30/2025 10:00 AM EST Clinical Support [address] [address] Cinda Moura RN 05/15/2025 3:30 PM EST Office Visit [address] [address] NameHarry MD [address] [place] [address] documented as of this encounter Visit Diagnoses Diagnosis PTSD (post-traumatic stress disorder) Posttraumatic stress disorder documented in this encounter Additional Health Concerns Assessment Noted Time PHQ-9 Depression Total Score: 23 024 9:52 AM EDT documented as of this encounter Care Teams Web Marketing Specialist Relationship Specialty Start Date End Date Harry Recio MD [address] [place] [address] PCP - General Family Medicine 08/03/15 documented as of this encounter
--- OUTSIDE RECORDS SUMMARY | 2025-03-28 07:43 | XMS_ITS | Encounter Summary ---
Author Organization [employer] Address [address] [place] [address] 7 [place] [address] Care Team Providers Care Chief Radiology Name Role Phone Name, Harry NIELSEN Primary Care Provider [phone] Encounter Details Date Type Department Care Team ([facility] st Contact Info) Description 05/04/2023 Abstract [facility] MEDICINE 230 [place], [place] [phone] Name, MD Harry 230 [place] [address] Social History Tobacco Use Types Packs/Day Years [...] Description 04/30/2025 10:00 AM EST Clinical Support [address] [address] Cinda Moura RN 05/15/2025 3:30 PM EST Office Visit [address] [address] Name, MD Harry [address] [place] [address] documented as of this encounter Visit Diagnoses Not on filedocumented in this encounter Additional Health Concerns Assessment Noted Time PHQ-9 Depression Total Score: 11 024 11:07 AM EST documented as of this encounter Care Teams Chief Radiology Relationship Specialty Start Date End Date NameHarry MD [address] [place] [address] PCP - General Family Medicine 08/03/15 documented as of this encounter
--- OUTSIDE RECORDS SUMMARY | 2025-03-28 07:43 | XMS_ITS | Encounter Summary ---
Author Organization [employer] Address [address] [place] [address] 7 [place] [address] Care Team Providers Care Propulsion Motor And Generator Repairer Name Role Phone Name, Harry NIELSEN Primary Care Provider [phone] Reason for Visit * Reason Comments Med Refill Encounter Details Date Type Department Care Team ([facility] Contact Info) Description 01/20/2025 Refill [facility] MEDICINE 230 [place], [place] [phone] Name, MD Harry 230 [place] [address] PTSD (post-traumatic stress disorder) Social History Tobacco [...] Description 04/30/2025 10:00 AM EST Clinical Support [address] [address] Cinda Moura RN 05/15/2025 3:30 PM EST Office Visit [address] [address] NameHarry MD [address] [place] [address] documented as of this encounter Visit Diagnoses Diagnosis PTSD (post-traumatic stress disorder) Posttraumatic stress disorder documented in this encounter Additional Health Concerns Assessment Noted Time PHQ-9 Depression Total Score: 14 025 1:44 PM EDT documented as of this encounter Care Teams Propulsion Motor And Generator Repairer Relationship Specialty Start Date End Date Harry Recio MD [address] [place] [address] PCP - General Family Medicine 08/03/15 documented as of this encounter
--- OUTSIDE RECORDS SUMMARY | 2025-03-28 07:43 | XMS_ITS | Encounter Summary ---
Author Organization [employer] Address [address] [place] [address] 7 [place] [address] Care Team Providers Care Route Inspector Name Role Phone Name, Harry NIELSEN Primary Care Provider Reason for Visit * Reason Onset Date Comments Med Refill 01/16/2025 Encounter Details Date Type Department Care Team ([facility] st Contact Info) Description 01/16/2025 Refill [facility] MEDICINE 230 [place], [place] [phone] Name, MD Harry 230 [place] [address] Insomnia, unspecified type Social History Tobacco Use [...] Description 04/30/2025 10:00 AM EST Clinical Support [address] [address] Cinda Moura RN 05/15/2025 3:30 PM EST Office Visit [address] [address] Name, MD Harry [address] [place] [address] documented as of this encounter Visit Diagnoses Diagnosis Insomnia, unspecified type documented in this encounter Additional Health Concerns Assessment Noted Time PHQ-9 Depression Total Score: 14 025 1:44 PM EDT documented as of this encounter Care Teams Route Inspector Relationship Specialty Start Date End Date Name, MD Harry [address] [place] [address] PCP - General Family Medicine 08/03/15 documented as of this encounter
--- OUTSIDE RECORDS SUMMARY | 2025-03-28 07:43 | XMS_ITS | Encounter Summary ---
Author Organization [employer] Address [address] [place] [address] [place] [address] Care Team Providers Care Deployment Technician Name Role Phone Name, Harry NIELSEN Primary Care Provider [phone] Reason for Visit * Reason Onset Date Comments Med Refill 10/22/2024 Encounter Details Date Type Department Care Team (Late st Contact Info) Description 10/22/2024 Refill [facility] MEDICINE 230 [place], [place] [phone] Name, MD Harry 230 [place] [address] Lumbago with sciatica, left side Social History [...] Description 04/30/2025 10:00 AM EST Clinical Support [address] [address] Cinda Moura RN 05/15/2025 3:30 PM EST Office Visit [address] [address] Name, MD Harry [address] [place] [address] documented as of this encounter Visit Diagnoses Diagnosis Lumbago with sciatica, left side documented in this encounter Additional Health Concerns Assessment Noted Time PHQ-9 Depression Total Score: 23 024 9:52 AM EDT documented as of this encounter Care Teams Deployment Technician Relationship Specialty Start Date End Date Harry Recio MD [address] [place] [address] PCP - General Family Medicine 08/03/15 documented as of this encounter
--- OUTSIDE RECORDS SUMMARY | 2025-03-28 07:43 | XMS_ITS | Encounter Summary ---
Author Organization [employer] Address [address] [place] [address] 7 [place] [address] Care Team Providers Care Relations Specialist Name Role Phone Name, Harry NIELSEN Primary Care Provider [phone] Reason for Visit * Reason Comments Med Refill Encounter Details Date Type Department Care Team ([facility] Contact Info) Description 11/26/2024 Refill [facility] MEDICINE 230 [place], [place] [phone] Name, MD Harry 230 [place] [address] Primary insomnia Social History Tobacco Use Types [...] 04/30/2025 10:00 AM EST Clinical Support [address] [address] Cinda Moura RN 05/15/2025 3:30 PM EST Office Visit [address] [address] NameHarry MD [address] [place] [address] documented as of this encounter Visit Diagnoses Diagnosis Primary insomnia Persistent disorder of initiating or maintaining sleep documented in this encounter Additional Health Concerns Assessment Noted Time PHQ-9 Depression Total Score: 14 025 1:44 PM EDT documented as of this encounter Care Teams Relations Specialist Relationship Specialty Start Date End Date Harry Recio MD [address] [place] [address] PCP - General Family Medicine 08/03/15 documented as of this encounter
--- OUTSIDE RECORDS SUMMARY | 2025-03-28 07:43 | XMS_ITS | Encounter Summary ---
Author Organization [employer] Address [address] [place] [address] 7 [place] [address] Care Team Providers Care Manager Budget Name Role Phone Name, Harry NIELSEN Primary Care Provider [phone] Reason for Visit * Reason Onset Date Comments Med Refill 10/22/2024 Encounter Details Date Type Department Care Team ([facility] st Contact Info) Description 10/22/2024 Refill [facility] MEDICINE 230 [place], [place] [phone] Name, MD Harry 230 [place] [address] Primary insomnia Social History Tobacco Use Types [...] Description 04/30/2025 10:00 AM EST Clinical Support [address] [address] Cinda Moura RN 05/15/2025 3:30 PM EST Office Visit [address] [address] NameHarry MD [address] [place] [address] documented as of this encounter Visit Diagnoses Diagnosis Primary insomnia Persistent disorder of initiating or maintaining sleep documented in this encounter Additional Health Concerns Assessment Noted Time PHQ-9 Depression Total Score: 23 024 9:52 AM EDT documented as of this encounter Care Teams Manager Budget Relationship Specialty Start Date End Date NameHarry MD [address] [place] [address] PCP - General Family Medicine 08/03/15 documented as of this encounter
--- OUTSIDE RECORDS SUMMARY | 2025-03-28 07:43 | XMS_ITS | Encounter Summary ---
Author Organization [employer] Address [address] [place] [address] [place] [address] Care Team Providers Care Karate Teacher Name Role Phone Name, Harry NIELSEN Primary Care Provider [phone] Reason for Visit * Reason Onset Date Comments Med Refill 10/23/2024 Encounter Details Date Type Department Care Team ([facility] st Contact Info) Description 10/23/2024 Refill [facility] MEDICINE 230 [place], [place] [phone] Name, MD Harry 230 [place] [address] Social History Tobacco Use Types Packs/Day Years [...] Description 04/30/2025 10:00 AM EST Clinical Support [address] [address] Cinda Moura RN 05/15/2025 3:30 PM EST Office Visit [address] [address] Name, MD Harry [address] [place] [address] documented as of this encounter Visit Diagnoses Not on filedocumented in this encounter Additional Health Concerns Assessment Noted Time PHQ-9 Depression Total Score: 23 024 9:52 AM EDT documented as of this encounter Care Teams Karate Teacher Relationship Specialty Start Date End Date NameHarry MD [address] [place] [address] PCP - General Family Medicine 08/03/15 documented as of this encounter
--- OUTSIDE RECORDS SUMMARY | 2025-03-28 07:43 | XMS_ITS | Encounter Summary ---
Author Organization [employer] Address [address] [place] [address] 7 [place] [address] Care Team Providers Care Home Appliance Washing Machine Mechanic Name Role Phone Name, Harry NIELSEN Primary Care Provider [phone] Reason for Visit * Reason Comments Med Refill Encounter Details Date Type Department Care Team ([facility] st Contact Info) Description 05/09/2023 Refill [facility] MEDICINE 230 [place], [place] [phone] Carlos Gr FNP PTSD (post-traumatic stress disorder) [...] Description 04/30/2025 10:00 AM EST Clinical Support [address] [address] Cinda Moura RN 05/15/2025 3:30 PM EST Office Visit [address] [address] Name, MD Harry [address] [place] [address] documented as of this encounter Visit Diagnoses Diagnosis PTSD (post-traumatic stress disorder) Posttraumatic stress disorder documented in this encounter Additional Health Concerns Assessment Noted Time PHQ-9 Depression Total Score: 11 024 11:07 AM EST documented as of this encounter Care Teams Home Appliance Washing Machine Mechanic Relationship Specialty Start Date End Date Name, MD Harry [address] [place] [address] PCP - General Family Medicine 08/03/15 documented as of this encounter
--- OUTSIDE RECORDS SUMMARY | 2025-03-28 07:43 | XMS_ITS | Encounter Summary ---
Author Organization [employer] Address [address] [place] [address] [place] [address] Care Team Providers Care It Analyst Name Role Phone Name, Harry NIELSEN Primary Care Provider [phone] Reason for Visit * Reason Onset Date Comments Med Refill 02/16/2025 Encounter Details Date Type Department Care Team ([facility] st Contact Info) Description 02/16/[address] [facility] MEDICINE 230 [place], [place] [phone] Name, MD Harry 230 [place] [address] Insomnia, unspecified type Social History Tobacco Use [...] Description 04/30/2025 10:00 AM EST Clinical Support [address] [address] Cinda Moura RN 05/15/2025 3:30 PM EST Office Visit [address] [address] Name, MD Harry [address] [place] [address] documented as of this encounter Visit Diagnoses Diagnosis Insomnia, unspecified type documented in this encounter Additional Health Concerns Assessment Noted Time PHQ-9 Depression Total Score: 14 025 1:44 PM EDT documented as of this encounter Care Teams It Analyst Relationship Specialty Start Date End Date Name, MD Harry [address] [place] [address] PCP - General Family Medicine 08/03/15 documented as of this encounter
--- OUTSIDE RECORDS SUMMARY | 2025-03-28 07:43 | XMS_ITS | Encounter Summary ---
Author Organization [employer] Address [address] [place] [address] [place] [address] Care Team Providers Care Senior Interactive Producer Name Role Phone Name, Harry NIELSEN Primary Care Provider [phone] Reason for Visit * Reason Onset Date Comments Med Refill 01/20/2025 Encounter Details Date Type Department Care Team ([facility] st Contact Info) Description 01/20/2025 Refill [facility] MEDICINE 230 [place], [place] [phone] Name, MD Harry 230 [place] [address] Insomnia, unspecified type; Primary insomnia; PTSD (post-traumatic [...] Description 04/30/2025 10:00 AM EST Clinical Support [address] [address] Cinda Moura RN 05/15/2025 3:30 PM EST Office Visit [address] [address] Harry Recio MD [address] [place] [address] documented as of this encounter Visit Diagnoses Diagnosis Insomnia, unspecified type Primary insomnia Persistent disorder of initiating or maintaining sleep PTSD (post-traumatic stress disorder) Posttraumatic stress disorder Lumbago with sciatica, left side documented in this encounter Additional Health Concerns Assessment Noted Time PHQ-9 Depression Total Score: 14 025 1:44 PM EDT documented as of this encounter Care Teams Senior Interactive Producer Relationship Specialty Start Date End Date Harry Recio MD [address] [place] [address] PCP - General Family Medicine 08/03/15 documented as of this encounter
--- OUTSIDE RECORDS SUMMARY | 2025-03-28 07:43 | XMS_ITS | Encounter Summary ---
Author Organization [employer] Address [address] [place] [address] 7 [place] [address] Care Team Providers Care Culturist Name Role Phone Name, Harry NIELSEN Primary Care Provider [phone] Reason for Visit * Reason Onset Date Comments Med Refill 03/30/2023 Encounter Details Date Type Department Care Team ([facility] st Contact Info) Description 03/30/2023 Telephone [facility] MEDICINE 230 [place], [place] [phone] Name, MD Harry 230 [place] [address] Med Refill Social History Tobacco Use Types [...] 10:47 AM EST Medication was sent to [facility] #[id number] on 02/06/23 #90 to soon for refill. * Telephone Encounter - Rosie Branham - 03/30/2023 10:41 AM EST TC from pt requesting medication refill. Medications needing refill : amitriptyline (Elavil) 50 MG tablet To be sent to: [facility] #[id number] AT [facility] documented in this encounter Plan of Treatment Upcoming Encounters Date Type Department Care Team ([facility] st Contact Info) Description 04/30/2025 10:00 AM EST Clinical Support [facility] MEDICINE [address] [place] [address] Cinda Moura RN 05/15/2025 3:30 PM EST Office Visit [facility] MEDICINE [address] [place] [address] Name, MD Harry [address] [place] [address] documented as of this encounter Visit Diagnoses Not on filedocumented in this encounter Additional Health Concerns Assessment Noted Time PHQ-9 Depression Total Score: 8 02/07/20 23 10:45 AM EDT documented as of this encounter Care Teams Culturist Relationship Specialty Start Date End Date Name, MD Harry 230 [place] [address] PCP - General Family Medicine 08/03/15 documented as of this encounter
--- OUTSIDE RECORDS SUMMARY | 2025-03-28 07:43 | XMS_ITS | Encounter Summary ---
Author Organization [employer] Address [address] [place] [address] [place] [address] Care Team Providers Care Councilperson Name Role Phone Name, Harry NIELSEN Primary Care Provider [phone] Reason for Visit * Reason Onset Date Comments Med Refill 07/22/2024 Encounter Details Date Type Department Care Team (Late st Contact Info) Description 07/22/2024 Refill [facility] MEDICINE 230 [place], [place] [phone] Name, MD Harry 230 [place] [address] Lumbago with sciatica, left side Social History [...] 04/30/2025 10:00 AM EST Clinical Support [address] [address] Cinda Moura RN 05/15/2025 3:30 PM EST Office Visit [address] [address] Name, MD Harry [address] [place] [address] documented as of this encounter Visit Diagnoses Diagnosis Lumbago with sciatica, left side documented in this encounter Additional Health Concerns Assessment Noted Time PHQ-9 Depression Total Score: 23 024 9:52 AM EDT documented as of this encounter Care Teams Councilperson Relationship Specialty Start Date End Date NameHarry MD [address] [place] [address] PCP - General Family Medicine 08/03/15 documented as of this encounter
--- OUTSIDE RECORDS SUMMARY | 2025-03-28 07:44 | XMS_ITS | Clinical Summary ---
Author Organization [employer] Address [address] [place] [address] 7 [place] [address] Care Team Providers Care Salesperson Art Objects Name Role Phone Name, Harry NIELSEN Primary Care Provider Allergies Active Allergy Reactions Criticality Noted Date [...] bedtime 30 tablet 3 12/18/19 25 Active sertraline (Zoloft) 100 MG tabletIndicati ons:PTSD (post-traumati c stress disorder) TAKE 2 TABLETS BY MOUTH EVERY MORNING 180 tablet 02/24/20 25 Active amitriptyline (Elavil) 50 MG tabletIndicati ons:Primary insomnia TAKE 1 TABLET BY MOUTH AT BEDTIME 30 tablet 1 02/28/20 25 Active clonazePAM (KlonoPIN) 1 MG tabletIndicati ons:PTSD (post-traumati c stress disorder) TAKE 1 TABLET(1 MG) BY MOUTH IN THE MORNING AND AT BEDTIME NEEDED FOR ANXIETY. DO NOT. START BEFORE FEBRUARY 17, 2025 56 tablet 03/20/20 25 Active oxyCODONE-acet aminophen (Percocet) 7.5-325 MG tabletIndicati ons:Lumbago with sciatica, left side Take 1 tablet by mouth every 6 (six) hours if needed for severe pain. Do not start before March 20, 2025. 112 tablet 03/20/20 25 026 Active atorvastatin (Lipitor) 20 MG tablet TAKE 1 TABLET BY MOUTH IN THE MORNING 90 tablet 1 03/24/20 25 Active amitriptyline (Elavil) 50 MG tabletIndicati ons:Primary insomnia TAKE 1 TABLET BY MOUTH AT BEDTIME 30 tablet 1 12/25/19 25 025 Discontinued atorvastatin (Lipitor) 20 MG tablet TAKE 1 TABLET BY MOUTH IN THE MORNING 90 tablet 1 01/20/20 25 025 Discontinued(R eorder (will not trigger notification to Pharmacy)) oxyCODONE-acet aminophen (Percocet) 7.5-325 MG tabletIndicati ons:Lumbago with sciatica, left side Take 1 tablet by mouth every 6 (six) hours if needed for severe pain for up to 28 days. Do not start before February 17, 2025. 112 tablet 02/18/20 25 025 Discontinued(R eorder (will not trigger notification to Pharmacy)) clonazePAM (KlonoPIN) 1 MG tabletIndicati ons:PTSD (post-traumati c stress disorder) Take 1 tablet (1 mg) by mouth if needed in the morning and at bedtime for anxiety for up to 28 days. Do not start before February 17, 2025. 56 tablet 02/18/20 25 025 Discontinued Active Problems Problem Noted Date Diagnosed Date [...] recurrent major depressive disorder, without psychotic features ([facility]) - Primary Patient ready to address current needs Yes Strengths include strong family support PLAN: 1. Follow up with [facility]: Not recommended for follow-up 2. Patient goal [...] for continued medication management. He should call [facility] with any questions or concerns. I [...] restarted several (but not all). Recommend utilizing [facility] pharmacy with [facility], and pt is [...] disease Urinary incontinence 08/16/2022 Moderate major depression ([facility]) 08/16/2022 Severe episode of recurrent major depressive disorder, without psychotic features ([facility]) 09/26/2017 Seasonal allergic rhinitis 09/26/2017 Occult blood in stools 02/05/2017 Insomnia 09/10/2015 Chronic low back pain 08/03/2015 Neurogenic bladder 08/03/2015 Cauda equina syndrome ([facility]) 08/03/2015 Resolved Problems Problem Noted Date Diagnosed [...] previous US of the scrotum done at [facility] that showed hydrocele and non specific finding on the right testicle but the report does not mention a malignancy in the differential. Today he does not have any fever or suprapubic pressure, no foul smelling urine. Pt never had the US ordered by PCP back in 10/09/2023 Plan: Testicular US Seasonal allergic reaction 08/16/2022 0 12/18/2024 Urinary tract infection 08/16/202204/10 Encounters Date Type Department Care Team Description 03/23/2025 Refill [facility] [address] [place] [address] Name, MD Harry 03/17/2025 Refill [facility] [address] [place] [address] Beatrice Lyles NP PTSD (post-traumatic stress disorder); Lumbago with sciatica, left side 03/02/2025 Telephone [facility] [address] [place] [address] NameHarry MD question 02/27/2025 Telephone [facility] [address] [place] [address] Ki Boyle MA dec recalls 02/26/2025 Refill [facility] [address] [place] [address] Harry Recio MD Primary insomnia 02/21/2025 Refill [facility] [address] [place] [address] NameHarry MD PTSD (post-traumatic stress disorder) 02/16/2025 Refill [facility] [address] [place] [phone] NameHarry MD Insomnia, unspecified type 02/16/2025 Refill [facility] [address] [place] [address] Harry Recio MD Primary insomnia 02/16/2025 Refill [facility] [address] [place] [phone] NameHarry MD PTSD (post-traumatic stress disorder) 02/16/2025 Refill [facility] [address] [place] [phone] NameHarry MD Lumbago with sciatica, left side; PTSD (post-traumatic stress disorder) 01/29/2025 Telephone [facility] [address] [place] [phone] Cinda Moura, JOHN Clonazepam count discrepancy 01/28/2025 2:00 PM EDT Clinical Support [facility] [address] [place] [phone] Cinda Moura, RN Long-term current use of opiate analgesic (Primary Dx); Long-term current use of benzodiazepine 01/28/2025 Telephone [facility] [address] [place] [phone] Cinda Moura, RN Forgot Clonazepam and Percocet 01/28/2025 Travel 01/24/2025 Refill [facility] [address] [place] [address] Harry Recio MD Primary insomnia 01/20/2025 Refill [facility] [address] [place] [address] Harry Recio MD Insomnia, unspecified type; Primary insomnia; PTSD (post-traumatic stress disorder); Lumbago with sciatica, left side 01/20/2025 Refill [facility] [address] [place] [address] NameHarry MD PTSD (post-traumatic stress disorder) 01/20/2025 Refill [facility] [address] [place] [address] Harry Recio MD Lumbago with sciatica, left side; PTSD (post-traumatic stress disorder) 01/19/2025 Refill [facility] [address] [place] [address] Harry Recio MD PTSD (post-traumatic stress disorder) 01/16/2025 Refill [facility] [address] [place] [address] Harry Recio MD Primary insomnia 01/16/2025 Refill [facility] [address] [place] [address] Harry Recio MD PTSD (post-traumatic stress disorder) 01/16/2025 Refill [facility] [address] [place] [address] Harry Recio MD PTSD (post-traumatic stress disorder) 01/16/2025 Refill [facility] [address] [place] [address] Harry Recio MD Insomnia, unspecified type from Last 3 Months Immunizations Immunization Administration [...] Description 04/30/2025 10:00 AM EST Clinical Support [facility] [address] [place] [phone] Cinda Moura RN 05/15/2025 3:30 PM EST Office Visit [facility] [address] [place] [phone] Name, MD Harry [address] [place] [phone] Health Maintenance Due Date Last Done Comments CT Colonography 1966 FIT DNA/Cologuard 1966 FIT 1965 FOBT 1965 HIV Screening 1965 Sigmoidoscopy 1965 Hepatitis B Vaccines (2 of 3 - 19+ 3-dose series) 08/23/2006 07/26/2006 Zoster Vaccines (1 of 2) 02/16/2016 COVID-19 Vaccine (2024-2 6 season) 2024 03/07/2021, 07/09/2020, 06/18/2020 Influenza [...] Routine 09/30/2024 10:57 AM EDT High cholesterol COLONOSCOPY Routine 01/24/2024 from Last 3 Months or Most Recently Relevant to Health Maintenance Results * (ABNORMAL) POCT CAROL-14 Urine Drug Screen (01/28/2025 2:10 PM EDT) THC Positive(A) Negative Cocaine Screen, Urine Negative Negative Opiate Screen, Urine Negative Negative Methamphetamine Screen Urine Negative Negative Amphetamine Screen, Urine Negative Negative Benzodiazepines Screen, Urine Positive(A) Negative Comment:OPTOMETRIC TECHNOLOGIST pt on Clonazepam Barbiturate Screen, Urine Negative Negative Methadone Screen, Urine Negative Negative Buprenophine Screen, Urine Negative Negative TCA, Urine Positive(A) Negative MDMA Urine Negative Negative ng/mL Oxycodone Screen, Urine Positive(A) Negative Comment:OPTOMETRIC TECHNOLOGIST pt on Percocet Phencyclidine (PCP), Urine Negative Negative Propoxyphene, Urine Negative Negative Fentanyl, Urine Negative Negative Urine Urine specimen obtained by clean catch procedure / Unknown 01/28/2025 2:10 PM EDT Narrative Cinda Moura RN - 01/28/2025 2:10 PM EDT UTOX cup Lot#[id number] Exp. 01/13/26 Internal Pass Control us Harry Name MD POINT OF CARE TEST ENTER/EDIT OR DERABLES Final Result * US Renal Complete (01/07/2025 7:05 PM EDT) Anatomical Region Laterality Modality Kidney Ultrasound 01/07/2025 7:05 PM EDT Narrative 01/07/2025 7:07 PM EDT [place] [address] Ultrasound Report Signed Patient: Ruddy Garcia MR#: [id number] : 1965 Acct:[id number] Age/Sex: 59 / M ADM Date: 01/07/25 Loc: HO. Attending Dr: Dang SLADE Ordering Physician: Dang Salazar Date of Service: 01/07/25 Procedure(s): US renal BI Accession Number(s): [id number] cc: Dang Salazar; Name,Harry NIELSEN Reason for [...] in OV> 01/07/251906 DD/ 04 TD/TT: 01/07/251904 Panel Cutter: Procedure Note Donotuseinterpreter, Image - 01/07/2025 [place] [address] Ultrasound Report Signed Patient: Ruddy Garcia RMR#: [id number] : 1965Acct:[id number] Age/Sex: 59 / MADM Date: 01/07/25 Loc: . Attending Dr: Dang SLADE Ordering Physician: Dang Salazar Date of Service: 01/07/25 Procedure(s): US renal BI Accession Number(s): [id number] cc: Dang Salazar; Name,Harry NIELSEN Reason for [...] in OV> 01/07/251906 DD/ 04 TD/TT: 01/07/251904 Panel Cutter: [facility] External Provider IMG US PROCEDURES Final Result * Hepatitis C Antibody with Reflex to HCV, RNA, Quantitative, Real-Time PCR (09/30/2024 10:57 AM EDT) Hepatitis C Antibody Nonreactive Nonreactive [facility] Comment:Antibodies to HCV no t detected; does not exclude early acuteHCV infection. Blood Venous blood specimen / Unknown 09/30/2024 10:57 AM EDT 09/30/2024 12:56 PM EDT Harry Recio MD LAB BLOOD ORDERABLES Final Resul t [facility] [address] [place] [address] [phone] * (ABNORMAL) Lipid Panel, Standard (09/30/2024 10:57 AM EDT) Triglycerides 357(H) <150 mg/dL [facility] Comment:Desirable Triglyceri de: less than 150 mg/dLBorderline High Triglyceride 150-199 mg/dLHigh Triglyceride: 200-499 mg/dLVery High Triglyceride: greater than or equal to 5OO mg/dL Cholesterol 149 <200 mg/dL [facility] Comment:Desirable Cholestero l: less than 200 mg/dLBorderline High Cholesterol: 200-239 mg/dLHigh Cholesterol: greater than 239 mg/dL LDL Cholesterol Calculated 55 <100 mg/dL [facility] Comment:Desirable LDL: less than 100 mg/dLNear Optimal/Above Optimal LDL: 110- 129 mg/dLBorderline High LDL: 130-159 mg/dLHigh LDL: 160-189 mg/dLVery High LDL: greater than or equal to 190 mg/dL HDL Cholesterol 23(L) >40 mg/dL [facility] Comment:Desirable HDL: great er than 40 mg/dL Note: This HDL assay may give artificially low results in patients with liver disease. Blood Venous blood specimen / Unknown 09/30/2024 10:57 AM EDT 09/30/2024 12:56 PM EDT us Harry Recio MD LAB BLOOD ORDERABLES Final Resul t [facility] [address] [place] [phone] * (ABNORMAL) Colonoscopy (01/24/2024) Colonoscopy Abnormal(A ) Normal 01/24/2024 us Harry Recio MD HEALTH MAINTENANCE Final Result from Last 3 Months or Most Recently Relevant to Health Maintenance Insurance [facility] [address] STANDARD [employer] MEDICARE REPLACEMENT Care Teams Salesperson Art Objects Relationship Specialty Start Date End Date Name, MD Harry [address] [place] [phone] PCP - General Family Medicine 08/03/15
== END 2025-03-28 07:41 | disposition home or self-care (01) ==
LOC: HO.US 07:40
PROVIDERS: PCP Internal Medicine Geriatric Medicine; Visit Provider Nurse Practitioner Family
DX: G83.4 Cauda equina syndrome (principal); N39.0 Urinary tract infection, site not specified; N50.82 Scrotal pain
CPT/HCPCS: 76857

== ENCOUNTER → 2025-03-28 07:48 | Outpatient (BNV) | payer MEDICARE, MEDICAID, SELFPAY | PROVIDERS: PCP Internal Medicine Geriatric Medicine; Visit Provider Radiology Diagnostic Ultrasound | DX: N32.89 Other specified disorders of bladder (principal) | CPT/HCPCS: 76857 ==